=== PATIENT | female | born 1960 | race Caucasian/White ===

== ENCOUNTER → 2016-08-26 | Outpatient (CLI) | payer OTHER ==
[~2016-08-26] MED LIST: /DULO30CA; /ERYT5OPO OD; /ESCI20TA PO; /LAMO10TA PO; /LAMO15TA PO; /LAMO20TA PO; BUPR100T6 PO; CATA0.1T PO; CLON0.5T OR; CYMB60CA3 PO; CYMBALTA60 PO; DULO20CA PO; EFFE150C PO; FLAG500T PO; HYDR10EL PO; HYDR50CA2 PO; IMIT50TA PO; KLON0.5T OR; KLON0.5T PO; LAMICTAL PO; LAMO10TA PO; LAMO200T PO; LATU1TAB PO; LATU80TA PO; LITH300C PO; LITH45TASA PO; MAGO400T PO; MIGRANAL; MIGRANOL; NAPROSY250 PO; NORCOTAB PO; PAXI20TA3 PO; PAXI40TA2 PO; QUET30TA; SERO200T; SERO200T PO; SERO200T2 PO; SERO400T PO; SERO400T3 OR; SERO400T3 PO; SERO50TA3 PO; SEROQUEL PO; SIMIVASTATIN PO; SIMV10TA2 PO; SIMV40TA2 OR; SIMV40TA2 PO; TRAZ100T2 PO; TRAZ100T4 PO; TRAZ50TA4 PO; TYLE325T5 PO; VIST50CA PO; ZOCO20TA; ZOCO40TA PO; ZOCOR20 PO; ZOLO50TA PO
--- NOTE | 2016-08-26 12:28 | REP ---
Clinical: The indeterminate PPD test . Comparison: 08/25/2013 . Technique: PA and lateral. Findings: The mediastinum and cardiac silhouette are normal. The lung hook are clear and without acute consolidation, effusion, or pneumothorax. The skeletal structures are intact and normal. Impression: 1. No acute cardiopulmonary process. Signed by Stephen Harrington MD 08/26/2016 12:19 P
== END ==
LOC: M LAB 11:47
PROVIDERS: ATTEND Physician Assistant
DX: R76.11 Nonspecific reaction to tuberculin skin test without active tuberculosis (principal)

== ENCOUNTER → 2016-09-16 | Outpatient (CLI) | payer OTHER ==
--- NOTE | 2016-09-16 16:43 | REP ---
Lumbar spine series: Five views. History: Pain. Comparison lumbar spine radiographs are from August 24, 2011. Findings: There are two large oval-shaped calcific opacities in the right upper quadrant today each measuring 3 cm in greatest diameter compatible with gallstones. This is a new finding. The bowel gas pattern is unremarkable. Lumbar vertebral body heights are preserved and alignment is normal. There is minimal disc space narrowing at L4-5 and L5-S1. There is no evidence of spondylolysis or spondylolisthesis. There is facet osteoarthritis bilaterally at L5-S1 and L4-5. Sacrum and SI joints are intact. Impression: 1. Degenerative disc and osteoarthritic facet changes at L4-5 and L5-S1. Radiographically these changes are essentially stable from September 04, 2011 prior study. 2. Two large opaque gallstones visible in the right upper quadrant. Signed by Rey Mims MD 09/16/2016 05:09 P
== END ==
LOC: M WUC 10:23
PROVIDERS: ATTEND Physician Assistant Medical
DX: M51.36 Other intervertebral disc degeneration, lumbar region (principal); M51.37 Other intervertebral disc degeneration, lumbosacral region; M47.816 Spondylosis without myelopathy or radiculopathy, lumbar region; M47.817 Spondylosis without myelopathy or radiculopathy, lumbosacral region; K80.80 Other cholelithiasis without obstruction

== ENCOUNTER → 2017-04-13 | Outpatient (REF) | payer OTHER ==
[~2017-04-13] MED LIST changes: +PAXI40TA10 PO; -PAXI40TA2 PO; +PERC5TAB12 PO; +TRAZ-136 PO; -TRAZ100T4 PO; +TRAZ50TA11 PO; -TRAZ50TA4 PO
== END ==
LOC: M SFHCPLAZ 11:09
PROVIDERS: ATTEND Family Medicine
DX: E78.5 Hyperlipidemia, unspecified (principal); E55.9 Vitamin D deficiency, unspecified

== ENCOUNTER → 2017-04-14 | Outpatient (REF) | payer OTHER ==
[2017-04-14 10:59] LABS: ALBUMIN 3.5 GM/DL (3.2-5.2); ALBUMIN/GLOBULIN RATIO 1.09 (1.00-1.93); ALKALINE PHOSPHATASE 73 U/L (45-117); ALT/SGPT 23 U/L (12-78); ANION GAP 8 MEQ/L (8-16); AST/SGOT 20 U/L (15-37); BILIRUBIN,TOTAL 0.4 MG/DL (0.2-1.0); BLOOD UREA NITROGEN 12 MG/DL (7-18); CALCIUM LEVEL 9.2 MG/DL (8.5-10.1); CARBON DIOXIDE LEVEL 27 MEQ/L (21-32); CHLORIDE LEVEL 107 MEQ/L (98-107); CHOLESTEROL LEVEL 260 MG/DL (<200); FREE T4 0.88 NG/DL (0.76-1.46); GLOMERULAR FILTRATION RATE > 60.0 (>51); GLUCOSE, FASTING 117 MG/DL (70-105); SODIUM LEVEL 142 MEQ/L (136-145); TOTAL PROTEIN 6.7 GM/DL (6.4-8.2); TRIGLYCERIDES LEVEL 89 MG/DL (<150)
[2017-04-14 11:01] LABS: POTASSIUM SERUM 5.2 MEQ/L (3.5-5.1)
== END ==
LOC: M SFHCPLAZ 08:14
PROVIDERS: ATTEND Family Medicine
DX: E78.5 Hyperlipidemia, unspecified (principal); E55.9 Vitamin D deficiency, unspecified

== ENCOUNTER → 2017-05-07 | Outpatient (CLI) | payer OTHER ==
--- NOTE | 2017-05-07 08:48 | REP ---
Abdominal right upper quadrant ultrasound: There is a positive Bull's sign to transducer pressure. There are two large mobile gallbladder calculi, one measuring 2.6 cm and the other 2.0 cm. The gallbladder wall is mildly thickened measuring up to 3.4 mm. There is no intrahepatic or extrahepatic biliary duct dilatation, the common duct measures 5.2 mm in diameter. The hepatic parenchyma is mildly echogenic compatible with hepato steatosis but otherwise homogeneous and unremarkable. The visualized portion of the pancreatic head is unremarkable. The body and tail are obscured by bowel gas. There is no right renal calculus, hydronephrosis, mass or cyst, however the lower pole of the kidney is obscured by bowel gas. Impression: Cholelithiasis. Positive Bull's sign to transducer pressure. Mildly thickened gallbladder wall. No pericholecystic fluid. Signed by Max Mcginnis MD 05/07/2017 08:40 A
== END ==
LOC: M RAD 07:07
PROVIDERS: ATTEND Physician Assistant Medical
DX: R10.9 Unspecified abdominal pain (principal)

== ENCOUNTER 2017-06-03 08:00 | Emergency (ER) | payer OTHER ==
[~2017-06-03] VITALS: Ht 162.6 cm; Wt 85.3 kg
[~2017-06-03 08:00] MED LIST changes: -PERC5TAB12 PO
[2017-06-03] MEDS ORDERED: NS 1,000 ML IV SCH (08:40)
[2017-06-03] MEDS ORDERED: ONDANSETRON 4MG/2ML VIAL (J2405) IV ONE (08:45)
[2017-06-03] MEDS ORDERED: MORPHINE 4 MG/ML 1ML SYRINGE IV PRN (08:45)
[2017-06-03 09:10] LABS: BASO % 0.6 % (0.0-1.0); EOS # 0.3 10^3/uL (0.0-0.50); EOS % 4.2 % (0.0-3.0); IMMATURE GRANULOCYTE % 0.5 % (0-0); LYMPH # 1.6 10^3/uL (1.5-4.5); LYMPH % 24.1 % (24.0-44.0); MEAN CORPUSCULAR HEMOGLOBIN 27.9 pg (27.0-33.0); MEAN CORPUSCULAR HGB CONC 32.9 g/dl (32.0-36.5); MEAN CORPUSCULAR VOLUME 84.8 fl (80.0-96.0); MONO # 0.6 10^3/uL (0.0-0.8); MONO % 8.5 % (0.0-5.0); NEUTROPHILS % 62.1 % (36.0-66.0); PLATELET COUNT, AUTOMATED 266 10^3/uL (150-450); RED CELL DISTRIBUTION WIDTH 12.9 % (11.5-14.5); WHITE BLOOD COUNT 6.4 10^3/uL (4.0-10.0)
[2017-06-03 09:43] LABS: ALBUMIN 3.5 GM/DL (3.2-5.2); ALBUMIN/GLOBULIN RATIO 0.95 (1.00-1.93); ALKALINE PHOSPHATASE 76 U/L (45-117); ALT/SGPT 35 U/L (12-78); ANION GAP 6 MEQ/L (8-16); AST/SGOT 30 U/L (15-37); BILIRUBIN,DIRECT < 0.1 MG/DL (0.0-0.2); BILIRUBIN,TOTAL 0.2 MG/DL (0.2-1.0); BLOOD UREA NITROGEN 16 MG/DL (7-18); CALCIUM LEVEL 8.9 MG/DL (8.5-10.1); CARBON DIOXIDE LEVEL 28 MEQ/L (21-32); CHLORIDE LEVEL 105 MEQ/L (98-107); CREATININE FOR GFR 0.65 MG/DL (0.55-1.02); GLOMERULAR FILTRATION RATE > 60.0 (>51); GLUCOSE, FASTING 99 MG/DL (70-105); POTASSIUM SERUM 4.6 MEQ/L (3.5-5.1); SODIUM LEVEL 139 MEQ/L (136-145); TOTAL PROTEIN 7.2 GM/DL (6.4-8.2)
[2017-06-03] MEDS ORDERED: PERC5TAB12 PO (11:00)
--- NOTE | 2017-06-03 11:13 | REP ---
RIGHT UPPER QUADRANT ULTRASOUND: Real-time sonographic evaluation of the right upper quadrant performed. There are two large gallstones in the gallbladder measuring 2.1 cm and 2.2 cm in diameter. Patient was tender in this region. There is no gallbladder wall thickening or pericholecystic fluid. There is no intrahepatic or extrahepatic biliary dilatation, common bile duct measuring 6 mm in diameter. Liver demonstrates heterogeneous echotexture suggesting some degree of fibrofatty infiltration. No gross liver or pancreatic mass is seen, pancreatic tail is not well seen due to overlying bowel gas. Right kidney demonstrates no hydronephrosis or nephrolithiasis with normal size at 10.7 cm in length. IMPRESSION: Two large gallstones in the gallbladder without gallbladder wall thickening, pericholecystic fluid or biliary dilatation. Signed by Max Alberts MD 06/03/2017 05:34 P
[2017-06-03 11:15] VITALS: BP 136/78
--- NOTE | 2017-06-04 05:55 | ECGEPIP ---
Stationary ECG Study [facility] - ED Test Date: 2017-06-03 Pat Name: SALOMON WINKLER Department: Room: - Gender: F Beet Topper: deandre : 1960 Requested By: Rosalba Malhotra Order Number: [id number] Reading MD: Leroy Forrester Measurements Intervals [place] Rate: 61 P: 40 NM: 162 QRS: 21 QRSD: 101 T: 9 QT: 464 QTc: 469 Interpretive Statements SINUS RHYTHM WITH SINUS ARRHYTHMIA NSTTW ABNORMALITIES PROBABLE LATERAL MYOCARDIAL INFARCTION, PROBABLY OLD Electronically Signed On 06-04-2017 5:55:14 EDT by Leroy Forrester
== END 2017-06-03 11:16 | disposition home or self-care (01) ==
LOC: M ED 08:00
DX: K80.50 Calculus of bile duct without cholangitis or cholecystitis without obstruction (principal)
CPT/HCPCS: 76705; 80048; 80076; 83690; 85025; 93005; 96374; 96375; 99284; J2405

== ENCOUNTER 2017-06-25 10:24 | Day surgery (SDC) | payer OTHER ==
[~2017-06-25] VITALS: Ht 162.6 cm; Wt 83.8 kg
[~2017-06-25 10:24] MED LIST changes: +PERC5TAB12 PO
[2017-06-25] MEDS ORDERED: LR 1,000 ML IV ONE (10:30)
[2017-06-25] MEDS ORDERED: fentaNYL 100 MCG/2 ML INJECTION (J3010) As Ordered ONE (11:10)
[2017-06-25] MEDS ORDERED: MIDAZOLAM INJ 2 MG/2 ML VIAL (J2250) As Ordered ONE (11:10)
[2017-06-25] MEDS ORDERED: BUPIVACAINE/EPIN 0.25% 30 ML VIAL As Ordered ONE (11:55)
[2017-06-25] MEDS ORDERED: LABETALOL HCL 100 MG/20 ML VIAL As Ordered ONE (12:22)
[2017-06-25] MEDS ORDERED: LIDOCAINE 2% INJ 100 MG/5 ML SDV (FOR ANES.) As Ordered ONE (12:22)
[2017-06-25] MEDS ORDERED: dexameTHASONE 4 MG/ML 1ML VIAL (J1100) As Ordered ONE (12:22)
[2017-06-25] MEDS ORDERED: KETOROLAC 60 MG/2 ML VIAL (J1885) As Ordered ONE (12:22)
[2017-06-25] MEDS ORDERED: ROCURONIUM BROMIDE 50 MG/5 ML VIAL/SYRINGE As Ordered ONE (12:22)
[2017-06-25] MEDS ORDERED: ONDANSETRON 4MG/2ML VIAL (J2405) As Ordered ONE (12:22)
[2017-06-25] MEDS ORDERED: PROPOFOL 200 MG/20 ML VIAL As Ordered ONE (12:22)
[2017-06-25] MEDS ORDERED: ePHEDrine SULFATE 25 MG/5 ML(5MG/ML) SYRINGE As Ordered ONE (12:28)
[2017-06-25] MEDS ORDERED: hydrALAZINE INJ 20 MG/ML VIAL As Ordered ONE (12:34)
[2017-06-25] MEDS ORDERED: HYDROmorphone HCL 2 MG/ML 1ML VIAL (J1170) As Ordered ONE (12:56)
[2017-06-25] MEDS ORDERED: GLYCOPYRROLATE INJ 0.2 MG/ML 2 ML VIAL As Ordered ONE (13:07)
[2017-06-25] MEDS ORDERED: NEOSTIGMINE 10 MG/10 ML VIAL (J2710) As Ordered ONE (13:07)
[2017-06-25] MEDS ORDERED: PERCOCET 5MG/325MG TAB PO PRN (13:45)
[2017-06-25] MEDS ORDERED: ONDANSETRON 4MG/2ML VIAL (J2405) IV PRN (13:45)
[2017-06-25] MEDS ORDERED: LR 1,000 ML IV SCH (13:45)
[2017-06-25] MEDS ORDERED: LABETALOL HCL 100 MG/20 ML VIAL IV SCH (13:45)
[2017-06-25] MEDS ORDERED: NORCO, ANEXSIA 5/325MG TABLET (HYDROcodone/ACETAMINOPHEN) PO PRN (13:45)
[2017-06-25] MEDS ORDERED: fentaNYL 100 MCG/2 ML INJECTION (J3010) IV PRN (13:45)
[2017-06-25] MEDS ORDERED: METOCLOPRAMIDE INJ 10MG/2ML VIAL (J2765) IV PRN (13:45)
[2017-06-25 15:30] VITALS: BP 179/87
--- NOTE | 2017-06-27 08:20 | RO ---
DATE OF PROCEDURE: 06/25/2017 PREOPERATIVE DIAGNOSIS: Symptomatic cholelithiasis. POSTOPERATIVE DIAGNOSIS: Symptomatic cholelithiasis. PROCEDURE: Laparoscopic cholecystectomy. SURGEON: Max Garcia DO W[employer] OPERATIONS MANAGER: None. ANESTHESIA: General. ESTIMATED BLOOD LOSS: 5 mL. COMPLICATIONS: None. INDICATIONS FOR PROCEDURE: Patient is a 57-year-old female who presents with persistent right upper quadrant abdominal pain occurring mainly after meals. She was found to have symptomatic cholelithiasis. Recommendation was to proceed with laparoscopic possible open cholecystectomy. Risks and benefits of the procedure not limited to, but including, bleeding, infection, hernia formation, damage to surrounding structures, need for further surgery were discussed in detail with the patient. Informed consent was obtained and the procedure was planned. PROCEDURE: Patient was brought back to operating room 6. After sufficient sedation, the abdomen was sterilely prepped and draped. Next, a time out was done to confirm proper patient and proper procedure. Following that, a stab incision was made in the left lower quadrant and a Veress needle was inserted. The abdomen was insufflated to 15 mmHg. Next, a 5 mm supraumbilical incision was made. A 5 mm OptiView port was used to gain access to the abdomen. Once abdomen was entered, a 10 mm port was placed subxiphoid and two 5 mm ports right upper quadrant. The fundus of the gallbladder was grasped, elevated up towards the right shoulder. The cystic duct and cystic artery were carefully dissected using a combination of blunt and sharp dissection. Once they were both clearly identified, they were both doubly clipped and cut. The gallbladder was then removed from gallbladder fossa using electrocautery. The gallbladder was brought out through the subxiphoid port site in a 10 mm EndoCatch bag. The abdomen was then examined one more time to confirm hemostasis. After doing so, the abdomen was desufflated. Skin incisions were closed #4-0 Vicryl subcuticular sutures. The abdomen was cleaned and dried. Steri-Strips, 4x4 and tape were applied thus ending procedure.
== END 2017-06-25 15:30 | disposition home or self-care (01) ==
LOC: M SDC 10:24
PROVIDERS: ATTEND Surgery
DX: K80.10 Calculus of gallbladder with chronic cholecystitis without obstruction (principal); F32.9 Major depressive disorder, single episode, unspecified; Z90.710 Acquired absence of both cervix and uterus; Z86.011 Personal history of benign neoplasm of the brain
CPT/HCPCS: 47562; 88304; J0690; J1100; J1170; J1885; J2250; J2405; J2710; J3010

== ENCOUNTER → 2017-06-30 | Outpatient (CLI) | payer OTHER ==
--- NOTE | 2017-06-30 16:24 | REP ---
Clinical: Trauma. Technique: AP and lateral views of the left humerus. Findings: No acute fracture dislocation. Skeletal structures, joint spaces and surrounding soft tissues appear normal for age. Impression: No acute fracture dislocation. Signed by Stephen Harrington MD 06/30/2017 04:15 P
--- NOTE | 2017-06-30 16:25 | REP ---
Clinical: Trauma. Technique: AP, lateral, bilateral oblique and sunrise views of the left knee. Findings: Mild tricompartmental degenerative changes include subchondral sclerosis and joint space narrowing. No acute fracture dislocation. No obvious effusion. Impression: Mild tricompartmental osteoarthritic degenerative changes. No acute fracture or dislocation. Signed by Stephen Harrington MD 06/30/2017 04:17 P
--- NOTE | 2017-06-30 16:25 | REP ---
Clinical: Trauma. Technique: AP and lateral views of the left forearm. Findings: No acute fracture or dislocation. Skeletal structures, joint spaces, and surrounding soft tissues are normal. No subcutaneous emphysema or radiodense foreign body. Impression: No acute fracture or dislocation. Signed by Stephen Harrington MD 06/30/2017 04:16 P
== END ==
LOC: M WUC 15:44
PROVIDERS: ATTEND Physician Assistant Medical
DX: M79.622 Pain in left upper arm (principal); M17.12 Unilateral primary osteoarthritis, left knee

== ENCOUNTER → 2017-08-03 | Outpatient (CLI) | payer OTHER ==
--- NOTE | 2017-08-04 15:59 | REP ---
MRI lumbar spine without contrast: History: Low back pain radiating to the upper back. Comparison radiographs are from September 16, 2016. Technique: Sagittal and axial T1 and T2-weighted scans are acquired in the usual fashion with and without fat saturation. Sequences include spin echo, turbo spin-echo, and STIR imaging sequences. MRI findings: Lumbar vertebral body heights are preserved. Alignment is normal. Cortical and medullary bone signal intensity are normal. There is mild degenerative narrowing of the L4-5 and L5-S1 discs. Conus medullaris is normal in appearance and position at T12-L1. There is minimal central bulging of the posterior margin of the T11-12 disc without cord compression. Axial and sagittal images at L1-L2 show no significant abnormality. At L2-L3, there is no evidence of disc herniation or neural foraminal narrowing. Minimal diffuse disc bulging is seen. At L3-4, there is minimal facet hypertrophy and ligamentum flavum hypertrophy. No central canal stenosis is seen. No neural foraminal encroachment is appreciated. At L4-L5, there is mild diffuse disc bulging. Developmentally short pedicles as well as moderate to marked facet and ligamentum flavum hypertrophy contribute to mild to moderate central canal stenosis at L4-5. The mid AP dimension of the thecal sac is 7 mm here. No neural foraminal encroachment is appreciated. At the L5-S1, there is diffuse disc bulging. Advanced facet hypertrophy is seen. There is mild to moderate right-sided neural foraminal narrowing from facet hypertrophy and disc bulging at L5-S1. Mild central canal stenosis is seen and L5-S1 as well. Impression: Degenerative disc and facet changes at L4-5 and L5-S1 where there is mild to moderate L4-5 central canal stenosis and mild L5-S1 central canal stenosis. Moderate right-sided neural foraminal narrowing is seen at L5-S1. Signed by Rey Mims MD 08/04/2017 04:59 P
== END ==
LOC: M RAD 13:28
PROVIDERS: ATTEND Physician Assistant Medical
DX: M51.36 Other intervertebral disc degeneration, lumbar region (principal); M51.37 Other intervertebral disc degeneration, lumbosacral region

== ENCOUNTER 2018-08-02 11:54 | Inpatient (IN) | payer OTHER ==
[2018-08-02] MEDS: ALPRAZolam 0.5 MG TAB PO (12:45)
[2018-08-02 13:19] LABS: HEMATOCRIT 43.9 % (36.0-47.0); HEMOGLOBIN 15.7 g/dl (12.0-15.5); MEAN CORPUSCULAR HEMOGLOBIN 30.2 pg (27.0-33.0); MEAN CORPUSCULAR HGB CONC 35.8 g/dl (32.0-36.5); MEAN CORPUSCULAR VOLUME 84.4 fl (80.0-96.0); PLATELET COUNT, AUTOMATED 254 10^3/uL (150-450); RED CELL DISTRIBUTION WIDTH 12.3 % (11.5-14.5); WHITE BLOOD COUNT 8.1 10^3/uL (4.0-10.0)
[2018-08-02 13:46] LABS: AMPHETAMINES LEVEL URINE NEGATIVE (NEGATIVE); BARBITURATES URINE NEGATIVE (NEGATIVE); BENZODIAZEPINES URINE NEGATIVE (NEGATIVE); CANNABINOIDS URINE NEGATIVE (NEGATIVE); COCAINE METABOLITE URINE NEGATIVE (NEGATIVE); METHADONE URINE NEGATIVE (NEGATIVE); OPIATES URINE NEGATIVE (NEGATIVE); PHENCYCLIDINE URINE NEGATIVE (NEGATIVE)
[2018-08-02 13:58] LABS: ACETAMINOPHEN LEVEL < 2.0 UG/ML (10.0-30.0); ALBUMIN/GLOBULIN RATIO 1.38 (1.00-1.93); ALKALINE PHOSPHATASE 63 U/L (45-117); ALT/SGPT 14 U/L (12-78); ANION GAP 11 MEQ/L (8-16); AST/SGOT 16 U/L (7-37); BILIRUBIN,DIRECT 0.1 MG/DL (0.0-0.2); BILIRUBIN,TOTAL 0.4 MG/DL (0.2-1.0); BLOOD UREA NITROGEN 12 MG/DL (7-18); CALCIUM LEVEL 9.3 MG/DL (8.5-10.1); CARBON DIOXIDE LEVEL 24 MEQ/L (21-32); CHLORIDE LEVEL 105 MEQ/L (98-107); ETHYL ALCOHOL (ETHANOL) 0.003 % (0.000-0.010); GLOMERULAR FILTRATION RATE > 60.0 (>51); GLUCOSE, FASTING 87 MG/DL (70-100); POTASSIUM SERUM 4.2 MEQ/L (3.5-5.1); SALICYLATE LEVEL < 1.7 MG/DL (5.0-30.0); SODIUM LEVEL 140 MEQ/L (136-145); TOTAL PROTEIN 6.9 GM/DL (6.4-8.2)
[2018-08-02] MEDS ORDERED: MAALOX 30 ML SUSP *UDC PO (15:30)
[2018-08-02] MEDS ORDERED: ACETAMINOPHEN TAB 650MG DOSE (2X325MG) PO (15:30)
[2018-08-02] MEDS ORDERED: MOM 30ML SUSPENSION UDC PO (15:30)
[2018-08-02] MEDS ORDERED: traZODone 50 MG TAB PO (15:30)
[2018-08-03] MEDS: OXcarbazepine 150 MG TAB PO (08:48)
[2018-08-03] MEDS: LURASIDONE HCL 40 MG TAB (LATUDA) PO (08:48)
[2018-08-03] MEDS: LORazepam 1 MG TAB PO (11:37)
[2018-08-03] MEDS: lamoTRIgine 25 MG TAB PO (12:14)
[2018-08-03] MEDS: ERYTHROMYCIN OPHTH OINT OD ×2 (15:29→21:03)
[2018-08-04] MEDS: hydrOXYzine 50 MG TAB PO (08:41)
[2018-08-04] MEDS: lamoTRIgine 25 MG TAB PO (08:41)
[2018-08-04] MEDS: LURASIDONE HCL 40 MG TAB (LATUDA) PO (08:41)
[2018-08-04] MEDS: OXcarbazepine 150 MG TAB PO (08:41)
[2018-08-04] MEDS: ERYTHROMYCIN OPHTH OINT OD (08:41)
[2018-08-04] MEDS: busPIRone 5 MG TAB PO ×3 (09:46→20:34)
[2018-08-04] MEDS: DOXYCYCLINE HYCLATE 100 MG TAB PO ×2 (16:28→20:34)
[2018-08-04] MEDS: ERYTHROMYCIN OPHTH OINT OU ×2 (16:28→20:34)
[2018-08-05] MEDS: OXcarbazepine 150 MG TAB PO (08:17)
[2018-08-05] MEDS: LURASIDONE HCL 40 MG TAB (LATUDA) PO (08:17)
[2018-08-05] MEDS: busPIRone 5 MG TAB PO ×3 (08:17→20:53)
[2018-08-05] MEDS: lamoTRIgine 25 MG TAB PO (08:17)
[2018-08-05] MEDS: ERYTHROMYCIN OPHTH OINT OU ×3 (08:18→20:53)
[2018-08-05] MEDS: DOXYCYCLINE HYCLATE 100 MG TAB PO ×2 (10:08→20:53)
[2018-08-06] MEDS: OXcarbazepine 150 MG TAB PO (08:16)
[2018-08-06] MEDS: busPIRone 5 MG TAB PO ×3 (08:16→20:09)
[2018-08-06] MEDS: LURASIDONE HCL 40 MG TAB (LATUDA) PO (08:16)
[2018-08-06] MEDS: lamoTRIgine 25 MG TAB PO (08:16)
[2018-08-06] MEDS: ERYTHROMYCIN OPHTH OINT OU ×3 (08:17→20:09)
[2018-08-06] MEDS: DOXYCYCLINE HYCLATE 100 MG TAB PO ×2 (08:17→20:09)
[2018-08-07] MEDS: lamoTRIgine 25 MG TAB PO (08:17)
[2018-08-07] MEDS: OXcarbazepine 150 MG TAB PO (08:17)
[2018-08-07] MEDS: ERYTHROMYCIN OPHTH OINT OU ×3 (08:18→20:18)
[2018-08-07] MEDS: DOXYCYCLINE HYCLATE 100 MG TAB PO ×2 (08:18→20:18)
[2018-08-07] MEDS: busPIRone 5 MG TAB PO ×3 (08:18→20:18)
[2018-08-07] MEDS: LURASIDONE HCL 40 MG TAB (LATUDA) PO (08:18)
[2018-08-07] MEDS: LORazepam 1 MG TAB PO ×2 (13:07→20:18)
[2018-08-08 00:15] LABS: OXCARBAZEPINE 14 ug/mL (10-35)
[2018-08-08] MEDS: DOXYCYCLINE HYCLATE 100 MG TAB PO (08:42)
[2018-08-08] MEDS: LURASIDONE HCL 40 MG TAB (LATUDA) PO (08:42)
[2018-08-08] MEDS: lamoTRIgine 25 MG TAB PO (08:43)
[2018-08-08] MEDS: busPIRone 5 MG TAB PO (08:43)
[2018-08-08] MEDS: OXcarbazepine 150 MG TAB PO (08:43)
[2018-08-08] MEDS: ERYTHROMYCIN OPHTH OINT OU (08:43)
[2018-08-08] MEDS: hydrOXYzine 50 MG TAB PO (08:43)
== END 2018-08-08 12:00 | disposition home or self-care (01) | DRG 885 ==
LOC: M PSY 08-06 07:15 → M ED 11:54 → M ED INP 15:25 → M PSY 16:25
PROVIDERS: Psychiatry & Neurology Psychiatry
DX: F31.9 Bipolar disorder, unspecified (principal); F41.9 Anxiety disorder, unspecified; E55.9 Vitamin D deficiency, unspecified; G43.909 Migraine, unspecified, not intractable, without status migrainosus; E78.5 Hyperlipidemia, unspecified; M51.36 Other intervertebral disc degeneration, lumbar region; Z79.899 Other long term (current) drug therapy; H10.31 Unspecified acute conjunctivitis, right eye

== ENCOUNTER 2018-10-27 17:23 | Inpatient (IN) | payer OTHER ==
[~2018-10-27] VITALS: Ht 162.6 cm; Wt 64.2 kg
[~2018-10-27 17:23] MED LIST changes: +BUSP10TA PO; -EFFE150C PO; +EFFE150C2 PO; +HYDR1CAP25 PO; +HYDRO50TAB PO; +LAMI25TA PO; -LAMO200T PO; +LAMO200T2 PO; +LATU40TA PO; +OXCA300T14 PO; -TRAZ-136 PO; +TRAZ-160 PO; +TRAZ-163 PO; -TRAZ50TA11 PO; +TRAZO50TA PO; +TRIL150T PO
[2018-10-27] MEDS ORDERED: LORazepam 2 MG TAB PO STA (17:50)
[2018-10-27 18:33] LABS: HEMATOCRIT 46.6 % (36.0-47.0); HEMOGLOBIN 16.2 g/dl (12.0-15.5); MEAN CORPUSCULAR HEMOGLOBIN 29.9 pg (27.0-33.0); MEAN CORPUSCULAR HGB CONC 34.8 g/dl (32.0-36.5); PLATELET COUNT, AUTOMATED 326 10^3/uL (150-450); RED BLOOD COUNT 5.42 10^6/uL (4.00-5.40); WHITE BLOOD COUNT 10.5 10^3/uL (4.0-10.0)
[2018-10-27 18:42] LABS: AMPHETAMINES LEVEL URINE NEGATIVE (NEGATIVE); BARBITURATES URINE NEGATIVE (NEGATIVE); BENZODIAZEPINES URINE NEGATIVE (NEGATIVE); CANNABINOIDS URINE NEGATIVE (NEGATIVE); COCAINE METABOLITE URINE NEGATIVE (NEGATIVE); METHADONE URINE NEGATIVE (NEGATIVE); OPIATES URINE NEGATIVE (NEGATIVE); PHENCYCLIDINE URINE NEGATIVE (NEGATIVE)
[2018-10-27 18:59] LABS: ACETAMINOPHEN LEVEL < 2.0 UG/ML (10.0-30.0); ALBUMIN 3.9 GM/DL (3.2-5.2); ALT/SGPT 33 U/L (12-78); BILIRUBIN,DIRECT 0.1 MG/DL (0.0-0.2); BILIRUBIN,TOTAL 0.6 MG/DL (0.2-1.0); BLOOD UREA NITROGEN 15 MG/DL (7-18); CALCIUM LEVEL 8.6 MG/DL (8.5-10.1); CARBON DIOXIDE LEVEL 23 MEQ/L (21-32); CHLORIDE LEVEL 111 MEQ/L (98-107); CREATININE FOR GFR 0.72 MG/DL (0.55-1.30); ETHYL ALCOHOL (ETHANOL) < 0.003 % (0.000-0.010); GLOMERULAR FILTRATION RATE > 60.0 (>51); GLUCOSE, FASTING 151 MG/DL (70-100); POTASSIUM SERUM 3.5 MEQ/L (3.5-5.1); SALICYLATE LEVEL < 1.7 MG/DL (5.0-30.0); SODIUM LEVEL 144 MEQ/L (136-145)
[2018-10-27] MEDS ORDERED: traZODone 50 MG TAB PO PRN (20:30)
[2018-10-27] MEDS ORDERED: MAALOX 30 ML SUSP *UDC PO PRN (20:30)
[2018-10-27] MEDS ORDERED: MOM 30ML SUSPENSION UDC PO PRN (20:30)
[2018-10-27] MEDS: busPIRone 10 MG TAB PO SCH (21:00)
[2018-10-27 21:30] VITALS: BP 124/90
[2018-10-28 06:17] VITALS: BP 113/68
[2018-10-28] MEDS ORDERED: LURASIDONE HCL 40 MG TAB (LATUDA) PO SCH ×2 (08:00)
--- NOTE | 2018-10-28 09:04 | HPEPDOC ---
[facility] Medical History & Physical Date of Admission Oct 27, 2018 History and Physical PCP: Dr Quinn ATTENDING: Dr. Stuart Tello HPI: 58 yo F admitted to [facility] for bipolar disorder, being medically examined today. No acute medical complaints today. She states she has not been taking her medications for a while because she states they were not working. She states because of this she has not been taking care of herself. Denies any fevers, chills, weakness, fatigue, PETTIT, CP, SOB, cough, palpitations, abdominal pain, N/V/D or changes in bowel or bladder habits. PMHx: BIPOLAR DISORDER MDD Anxiety HISTORY OF SI/SA, overdose 2014 MIGRAINE HEADACHE LUMBAR DJD-OCTOBER 2010 MRI WITH L4-S1 BULGES, L4-S1 MINIMAL DSN, FACET ARTHRITIS BY 09/2016 XRAY OVARIAN CYSTS HYPERLIPIDEMIA OSTEOPENIA VITAMIN D DEFICIENCY HISTORY OF RECURRENT UTI NEPHROLITHIASIS SURGICAL HISTORY BUNNY/BSO CRANIOTOMY WITH EXCISION OF COLLOID CYST DECEMBER 1994 WITH REPEAT NOVEMBER 2009-[facility]. History of seizure however the patient states it has been at least 15 years since her last seizure. APPENDECTOMY TONSILLECTOMY ADENOIDECTOMY Cholecystectomy SOCHX: Resides in: [facility] Marital Status: Kids: 3 Employment: unemployed Tobacco use: Denies ETOH: denies Illicit Drugs: Denies IV Drug Use: Denies Tattoos done unprofessionally: Denies FAMHX: Mother: Alive, hypertension Father: , heart disease Siblings: 2 brothers, one sister Alive, well. One brother , suicide Children: Alive, well ROS: As noted in HPI, otherwise 11pt ROS of systems reviewed and unremarkable. PE: GEN: 58 yo F, appears stated age. Appears unkept. No acute distress. Alert and oriented x 3. Patient with flat affect, avoids eye contact, slow to answer questions. HEENT: Normocephalic, atraumatic. Pupils are equal, round, and reactive to l ight. Extraocular movements are intact. No nystagmus appreciated. Sclera are nonicteric. Conjunctiva without injection. Nose midline. Nasal turbinates without bogginess. EACs both patent BL. TMs both visualized and gomez with good cone of light, no bulging or erythema. No facial asymmetry. Moist mucous membranes. Dentition fair. Pharynx pink and moist, no cobblestoning. Neck supple, trachea midline. No lymphadenopathy or thyromegaly appreciated. CHEST: Regular rate and rhythm, +S1, +S2 LUNGS: Clear to auscultation bilaterally. No wheezes, rales, or rhonchi. Breathing appears symmetric and easy. Patient is speaking in full sentences. No accessory muscle use. ABD: Round, soft, non-tender, non-distended. +Bowel sounds throughout. No rebound or guarding. No costovertebral angle tenderness. EXT: Pulses 2+ bilaterally dorsalis pedis and radial. No lower extremity edema appreciated. SKIN: [place], dry, warm. Capillary refill <2sec. No rashes. NEURO: Alert and oriented x 3. Cranial nerves III-XII are intact. No focal deficits appreciated. EKG: SINUS BRADYCARDIA SINCE 06/03/17 THERE HAS BEEN MINIMAL CHANGE QT INTERVAL IS SHORTER TODAY Electronically Signed On 08-04-2018 20:53:35 EST by Brenda Duff A&P: 58 yo F admitted to [facility] for unspecified depressive disorder 1. Psych. Plan per Psychiatry. EKG on file. 2. Craniotomy with excision of colloid cyst with repeat 11/23. History of seizure. Patient remains on Trileptal 450 mg by mouth daily. Patient denies any seizure activity in at least 15 years. 3.Follow up with PCP on discharge. 4. Mild leukocytosis. Pt is afebrile. Asymptomatic. Possible stress response. Recheck CBC in AM. 5. Staff member Ally present throughout exam. Vital Signs Vital Signs Date Time Temp Pulse Resp B/P (MAP) Pulse Ox O2 Delivery O2 Flow Rate FiO2 10/28/18 06:17 98.5 79 12 113/68 (83) 10/27/18 21:06 97 Room Air Laboratory Data Labs 24H Laboratory Tests 2 10/27/18 18:10: Nucleated Red Blood Cells % (auto) 0.0, Anion Gap 10, Glomerular Filtration Rate > 60.0, Calcium Level 8.6, Aspartate Amino Transf (AST/SGOT) 42H, Alanine Aminotransferase (ALT/SGPT) 33, Alkaline Phosphatase 74, Total Bilirubin 0.6, Direct Bilirubin 0.1, Total Protein 7.0, Albumin 3.9, Albumin/Globulin Ratio 1.26, Thyroid Stimulating Hormone (TSH) 1.690, Salicylates Level < 1.7L, Urine Amphetamines Screen NEGATIVE, Urine Benzodiazepines Screen NEGATIVE, Urine Opiates Screen NEGATIVE, Urine Methadone Screen NEGATIVE, Acetaminophen Level < 2.0L, Urine Barbiturates Screen NEGATIVE, Urine Phencyclidine Screen NEGATIVE, Urine Cocaine Metabolite Screen NEGATIVE, Urine Cannabinoids Screen NEGATIVE, Ethyl Alcohol Level < 0.003 CBC/BMP Laboratory Tests 10/27/18 18:10 Red Blood Count 5.42 H, Mean Corpuscular Volume 86.0, Mean Corpuscular Hemoglobin 29.9, Mean Corpuscular Hemoglobin Concent 34.8, Red Cell Distribution Width 12.6 Home Medications Scheduled Buspirone HCl (Buspirone HCl) 10 Mg Tab, 10 MG PO TID for anxiety Lamotrigine (Lamictal) 25 Mg Tab, 25 MG PO QAM for mood Lurasidone Hydrochloride (Latuda) 40 Mg Tab, 40 MG PO DAILY TAKES WITH 80MG FOR 120MG TOTAL DOSE Lurasidone Hydrochloride (Latuda) 80 Mg Tab, 80 TAB PO DAILY TAKES WITH 40MG FOR 120MG TOTAL DOSE Oxcarbazepine (Trileptal) 150 Mg Tab, 150 MG PO DAILY TAKES WITH 300MG FOR 450MG TOTAL DOSE Oxcarbazepine (Oxcarbazepine) 300 Mg Tab, 300 MG PO DAILY TAKES WITH 150MG FOR 450MG TOTAL DOSE Scheduled PRN Hydroxyzine HCl (Hydroxyzine HCl) 50 Mg Tab, 50 MG PO Q4HP PRN for ANXIETY/AGITATION Trazodone HCl (Trazodone HCl) 50 Mg Tab, 50 MG PO QHSP PRN for INSOMNIA Allergies Coded Allergies: No Known Drug Allergy (Verified Allergy, Unknown, 10/27/18) Adriana Cadena Oct 28, 2018 09:04
[2018-10-28] MEDS: busPIRone 10 MG TAB PO SCH ×3 (12:06→21:02)
[2018-10-28] MEDS: LURASIDONE HCL 40 MG TAB (LATUDA) PO SCH (12:06)
[2018-10-28] MEDS: OXcarbazepine 150 MG TAB PO SCH (12:06)
[2018-10-28] MEDS: lamoTRIgine 25 MG TAB PO SCH (12:06)
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
[2018-10-28 18:00] VITALS: BP_SYST 110; BP_SYST 90; BP_DIAS 58; BP_DIAS 60
[2018-10-28] MEDS: QUEtiapine FUMARATE 25 MG TAB PO SCH (21:02)
[2018-10-29 06:00] VITALS: BP 109/57
[2018-10-29] MEDS: LURASIDONE HCL 40 MG TAB (LATUDA) PO SCH (08:46)
[2018-10-29] MEDS: lamoTRIgine 25 MG TAB PO SCH (08:46)
[2018-10-29] MEDS: busPIRone 10 MG TAB PO SCH ×3 (08:46→20:10)
[2018-10-29] MEDS: OXcarbazepine 150 MG TAB PO SCH (08:47)
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
--- NOTE | 2018-10-29 13:37 | ECGEPIP ---
Stationary ECG Study [facility] Test Date: 2018-10-28 Pat Name: SALOMON WINKLER Department: Room: [place] [address] Gender: F Tipple Tender: KATALINA : 1960 Requested By: EVELYNE SCHILLING PGY-1 Order Number: [id number] Reading MD: Parker Huizar Measurements Intervals [place] Rate: 71 P: 59 KS: 160 QRS: 17 QRSD: 99 T: 4 QT: 423 QTc: 462 Interpretive Statements Normal sinus rhythm Nonspecific ST-T wave abnormalities Compared to prior tracing of 08/04/2018, there are minor repolarization changes Electronically Signed On 10-29-2018 13:36:47 EDT by Parker Huizar
[2018-10-29 18:28] VITALS: BP 99/68
[2018-10-29] MEDS: ACETAMINOPHEN TAB 650MG DOSE (2X325MG) PO PRN (19:08)
[2018-10-29] MEDS: QUEtiapine FUMARATE 25 MG TAB PO SCH (20:10)
[2018-10-30 06:47] VITALS: BP 148/79
[2018-10-30] MEDS: lamoTRIgine 25 MG TAB PO SCH (08:07)
[2018-10-30] MEDS: OXcarbazepine 150 MG TAB PO SCH (08:07)
[2018-10-30] MEDS: LURASIDONE HCL 40 MG TAB (LATUDA) PO SCH (08:07)
[2018-10-30] MEDS: busPIRone 10 MG TAB PO SCH ×3 (08:07→20:49)
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
[2018-10-30 09:02] VITALS: BP 130/90
[2018-10-30] MEDS: hydrOXYzine 50 MG TAB PO PRN (09:05)
[2018-10-30 10:54] LABS: ALT/SGPT 22 U/L (12-78); BILIRUBIN,TOTAL 0.3 MG/DL (0.2-1.0); BLOOD UREA NITROGEN 11 MG/DL (7-18); CARBON DIOXIDE LEVEL 30 MEQ/L (21-32); CHLORIDE LEVEL 112 MEQ/L (98-107); CPK CREATINE PHOSPHOKINASE 23 U/L (26-192); GLOMERULAR FILTRATION RATE > 60.0 (>51); GLUCOSE, FASTING 85 MG/DL (70-100); MB/CK RELATIVE INDEX 8.26 (< OR =4); POTASSIUM SERUM 3.5 MEQ/L (3.5-5.1); SODIUM LEVEL 147 MEQ/L (136-145); TOTAL PROTEIN 5.3 GM/DL (6.4-8.2); TROPONIN I < 0.02 NG/ML (< 0.10)
--- NOTE | 2018-10-30 14:36 | ECGEPIP ---
Stationary ECG Study [facility] Test Date: 2018-10-30 Pat Name: SALOMON WINKLER Department: Room: [place] [address] Gender: F Process Coordinator: CHARISMA : 1960 Requested By: BIANCA Matias Order Number: [id number] Reading MD: Parker Huizar Measurements Intervals [place] Rate: 73 P: 14 CO: 146 QRS: 12 QRSD: 106 T: -36 QT: 412 QTc: 455 Interpretive Statements Normal sinus rhythm. Nonspecific repolarization abnormality No significant change since prior tracing of 10/28/2018 Electronically Signed On 10-30-2018 14:36:43 EDT by Parker Huizar
[2018-10-30 17:58] VITALS: BP 140/80
[2018-10-30] MEDS: QUEtiapine FUMARATE 25 MG TAB PO SCH (20:49)
[2018-10-31 06:00] VITALS: BP 140/74
[2018-10-31] MEDS: OXcarbazepine 150 MG TAB PO SCH (08:15)
[2018-10-31] MEDS: lamoTRIgine 25 MG TAB PO SCH (08:16)
[2018-10-31] MEDS: busPIRone 10 MG TAB PO SCH ×3 (08:16→20:57)
[2018-10-31] MEDS: LURASIDONE HCL 40 MG TAB (LATUDA) PO SCH (08:16)
--- NOTE | 2018-10-31 13:09 | MHIPNPDOC ---
[facility] Progress Note Progress Note DATE OF SERVICE: 10/31/18 HISTORY: See HPI. Interval History: Plan to obtain information from family/other providers regarding AED prescriptions and relationship to family. She endorses symptoms of depression, anhedonia, denies decreased appetite (seen eating in her room), decreased energy, anxiety, "occasional suicidal thoughts", but states she would not act on them. Denies HI/bambi/AVH/PTSD symptoms. Per social work house is disarray, reaching out to family. She attended morning group and found it to be "not very useful as it was only a movie", as she would have preferred a more interactive/engaging group. VITAL SIGNS: See below. NEW TEST RESULTS: EKG 10/30/18, normal EKG CURRENT MEDICATIONS: See below. MENTAL STATUS EXAMINATION: Patient is a 58-year old female, who is in casual clothing, with glasses, plea deborah, cooperative. Speech: Is decreased rate, rhythm, volume. Language skills are intact Thought processes including: circumstantial Thought content: anhedonic Abstract reasoning, and computation: intact Description of associations: intact Description of abnormal or psychotic thoughts: denies Judgment: improving Insight: poor Orientation: x3 Recent and remote memory: Intact Attention span and concentration: decreased Language: bruneian Fund of knowledge: normal Mood: "depressed" Affect: dysthymic, blunted, mood-congruent, does not smile Assessment: Pt with a history of bipolar disorder currently experiencing, decreased sleep, increased anxiety and depression secondary to isolation since divorce 2-3 years ago. Agreeable to re-starting AED mediactions, lamictal 25 mg, buspar 10 mg TID, prn hydroxyzine 50 mg Q4 PRN, and seroquel 25 mg for bipolar depressive symptoms. Continues to deny active SI/HI, hallucinations, delusions. Does have passive SI and depressed mood. Makes efforst to attend groups, appetite intact. Continues to feels safe here. Plan to d/c AEDs if neurosurgeon can be contacted and verify safe to do so. io charts reviewed, no neurosurgery notes available. Denies SI/AVH/bambi/PTSD symptoms. Denies side effects from medications. 1. Bipolar Disorder, type I, depressive episode Plan: continue lamictal 20 mg daily (risks/benefits/SJS discussed), oxcarbazapine 450 mg daily (refused today), lurasidone 40 mg daily, hydroxyzine 50mg q4hr prn anxiety, seroquel 25 mg nightly for sleep. Continue to monitor for safety, suicidal ideations, depression, anxiety, manic symptoms and contact other providers to determine if AED medications can be discontinued. TIME SPENT: 15 minutes. Vital Signs Vital Signs Date Time Temp Pulse Resp B/P (MAP) Pulse Ox O2 Delivery O2 Flow Rate FiO2 10/31/18 06:00 97.5 76 18 140/74 (96) 10/30/18 09:02 98 10/27/18 21:06 Room Air Current Medications Current Medications Acetaminophen (Tylenol Tab) 650 mg Q6HP PRN PO HEADACHE or DISCOMFORT Last administered on 10/29/18 19:08; Start 10/27/18 at 20:30 Al Hydrox/Mg Hydrox/Simethicone (Mylanta) 30 ml Q4HP PRN PO HEARTBURN/INDIGESTION; Start 10/27/18 at 20:30 Buspirone HCl (Buspar) 10 mg TID PO Last administered on 10/31/18at 08:16; Start 10/27/18 at 21:00 Hydroxyzine HCl (Atarax) 50 mg Q4HP PRN PO ANXIETY/AGITATION Last administered on 10/30/18at 09:05; Start 10/27/18 at 20:30 Lamotrigine (LaMICtal) 25 mg DAILY PO Last administered on 10/31/18at 08:16; Start 10/28/18 at 09:00 Lorazepam (Ativan) 2 mg STAT STAT PO Last administered on 10/27/18at 18:15; Start 10/27/18 at 17:50; Stop 10/27/18 at 17:51; Status DC Lurasidone HCl (Latuda) 40 mg DAILY@08 PO Last administered on 10/31/18at 08:16; Start 10/28/18 at 08:00 Lurasidone HCl (Latuda) 40 mg DAILY@08 PO ; Start 10/28/18 at 08:00; Status UNV Lurasidone HCl (Latuda) 120 mg DAILY@08 PO ; Start 10/28/18 at 08:00; Stop 10/28/18 at 11:46; Status DC Magnesium Hydroxide (Milk Of Magnesia) 30 ml DAILYPRN PRN PO CONSTIPATION; Start 10/27/18 at 20:30 Oxcarbazepine (Trileptal) 450 mg DAILY PO Last administered on 10/28/18at 12:06; Start 10/28/18 at 09:00 Quetiapine Fumarate (SEROquel) 25 mg QHS PO Last administered on 10/30/18at 20:49; Start 10/28/18 at 21:00; Stop 11/28/18 at 21:00 Trazodone HCl (Desyrel) 50 mg QHSP PRN PO INSOMNIA; Start 10/27/18 at 20:30; Status Cancel Allergies Coded Allergies: MS - No Known Drug Allergy (Verified Allergy, Unknown, 10/27/18) EVELYNE SCHILLING PGY-1 Oct 31, 2018 13:09
[2018-10-31] MEDS: ACETAMINOPHEN TAB 650MG DOSE (2X325MG) PO PRN (17:41)
[2018-10-31 18:50] VITALS: BP 128/70
[2018-10-31] MEDS: QUEtiapine FUMARATE 25 MG TAB PO SCH (20:56)
[2018-11-01 06:49] VITALS: BP 124/60
[2018-11-01] MEDS: hydrOXYzine 50 MG TAB PO PRN (08:11)
[2018-11-01] MEDS: busPIRone 10 MG TAB PO SCH ×3 (08:11→20:23)
[2018-11-01] MEDS: LURASIDONE HCL 40 MG TAB (LATUDA) PO SCH (08:11)
[2018-11-01] MEDS: lamoTRIgine 25 MG TAB PO SCH (08:11)
[2018-11-01] MEDS: OXcarbazepine 150 MG TAB PO SCH (08:11)
--- NOTE | 2018-11-01 13:50 | MHIPNPDOC ---
[facility] Progress Note Progress Note DATE OF SERVICE: 11/01/18 HISTORY: See HPI. Interval History: Patient states she continues to have depressed mood and occasional suicidal thoughts. Per outside provider she was not adherent to medications and appointments both with medicine and former outpatient provider in Psychiatry. She has a seizure disorder, but oxcarbazepine was not prescribed for greater than 1 year. She denies seizures despite not taking the medications and has not had a seizure for more than 10 years. She has been refusing the medication during her stay and has been adherent with lamictal 25 mg which was previously at 250 mg BID. She agrees to start lexpro 10 mg Po daily for depressed mood. Denies AVH/bambi/HI. VITAL SIGNS: See below. NEW TEST RESULTS: EKG 10/30/18, normal EKG CURRENT MEDICATIONS: See below. MENTAL STATUS EXAMINATION: Patient is a 58-year old female, who is in casual clothing, with glasses, pleasant, cooperative. Speech: Is decreased rate, rhythm, volume. Language skills are intact Thought processes including: circumstantial Thought content: anhedonic Abstract reasoning, and computation: intact Description of associations: intact Description of abnormal or psychotic thoughts: denies Judgment: improving Insight: poor Orientation: x3 Recent and remote memory: Intact Attention span and concentration: decreased Language: indonesian Fund of knowledge: normal Mood: "still depressed" Affect: dysthymic, blunted, mood-congruent, does not smile Assessment: Pt with a history of bipolar disorder currently experiencing, decreased sleep, increased anxiety and depression secondary to isolation since divorce 2-3 years ago. Agreeable to re-starting AED mediactions, lamictal 25 mg, buspar 10 mg TID, prn hydroxyzine 50 mg Q4 PRN, and seroquel 25 mg for bipolar depressive symptoms. Has a lengthy history of poor follow-up, did not show up after her last discharge from [facility]. Agrees to medicine changes, denies side effects. Continues to have depressive symptoms, passive SI. Denies SI/AVH/bambi/PTSD symptoms. Denies side effects from medications. 1. Bipolar Disorder, type I, depressive episode Plan: Continue lamictal 25 mg PO daily (risks/benefits/SJS discussed) for mood, discontinue oxcarbazapine 150 mg+300mg QAM for seizures (confirmed with pharmacy prescribed 09/26/[address] Alvarado, but patient has not taken for greater than 1 year, denies seizure for >10 years, outpatient provider did not see in her chart), lurasidone 40 mg daily fo mood lability, hydroxyzine 50mg q4hr prn anxiety, seroquel 25 mg nightly for sleep. Started lexapro 10 mg PO daily for depression. Ordered lipid panel and hba1c. Continue to monitor for safety, suicidal ideations, depression, anxiety, manic symptoms, seizure symptoms. TIME SPENT: 30 minutes. Vital Signs Vital Signs Date Time Temp Pulse Resp B/P (MAP) Pulse Ox O2 Delivery O2 Flow Rate FiO2 11/01/18 06:49 98.6 62 16 124/60 (81) 10/30/18 09:02 98 10/27/18 21:06 Room Air Current Medications Current Medications Acetaminophen (Tylenol Tab) 650 mg Q6HP PRN PO HEADACHE or DISCOMFORT Last administered on 10/31/18at 17:41; Start 10/27/18 at 20:30 Al Hydrox/Mg Hydrox/Simethicone (Mylanta) 30 ml Q4HP PRN PO HEARTBURN/INDIGESTION; Start 10/27/18 at 20:30 Buspirone HCl (Buspar) 10 mg TID PO Last administered on 11/01/18at 08:11; Start 10/27/18 at 21:00 Hydroxyzine HCl (Atarax) 50 mg Q4HP PRN PO ANXIETY/AGITATION Last administered on 11/01/18at 08:11; Start 10/27/18 at 20:30 Lamotrigine (LaMICtal) 25 mg DAILY PO Last administered on 11/01/18at 08:11; Start 10/28/18 at 09:00 Lorazepam (Ativan) 2 mg STAT STAT PO Last administered on 10/27/18at 18:15; Start 10/27/18 at 17:50; Stop 10/27/18 at 17:51; Status DC Lurasidone HCl (Latuda) 40 mg DAILY@08 PO Last administered on 11/01/18at 08:11; Start 10/28/18 at 08:00 Lurasidone HCl (Latuda) 40 mg DAILY@08 PO ; Start 10/28/18 at 08:00; Status UNV Lurasidone HCl (Latuda) 120 mg DAILY@08 PO ; Start 10/28/18 at 08:00; Stop 10/28/18 at 11:46; Status DC Magnesium Hydroxide (Milk Of Magnesia) 30 ml DAILYPRN PRN PO CONSTIPATION; Start 10/27/18 at 20:30 Oxcarbazepine (Trileptal) 450 mg DAILY PO Last administered on 10/28/18at 12:06; Start 10/28/18 at 09:00 Quetiapine Fumarate (SEROquel) 25 mg QHS PO Last administered on 10/31/18at 20:56; Start 10/28/18 at 21:00; Stop 11/28/18 at 21:00 Trazodone HCl (Desyrel) 50 mg QHSP PRN PO INSOMNIA; Start 10/27/18 at 20:30; Status Cancel Allergies Coded Allergies: MS - No Known Drug Allergy (Verified Allergy, Unknown, 10/27/18) EVELYNE SCHILLING PGY-1 Nov 01, 2018 12:05
[2018-11-01] MEDS: ESCITALOPRAM OXALATE 10 MG TAB (LEXAPRO) PO SCH (14:31)
[2018-11-01 18:20] VITALS: BP 140/79
[2018-11-01] MEDS: QUEtiapine FUMARATE 25 MG TAB PO SCH (20:23)
[2018-11-02 06:33] VITALS: BP 142/83
[2018-11-02 07:25] LABS: CHOLESTEROL LEVEL 199 MG/DL (<200); CHOLESTEROL RISK RATIO 4.234 (<5); HDL CHOLESTEROL 47 MG/DL (>40); LDL CHOLESTEROL 126 MG/DL (<100); NON-HDL-C 152 MG/DL; TRIGLYCERIDES LEVEL 129 MG/DL (<150)
[2018-11-02 07:38] LABS: HEMOGLOBIN A1c 4.7 %
[2018-11-02] MEDS: LURASIDONE HCL 40 MG TAB (LATUDA) PO SCH (08:01)
[2018-11-02] MEDS: ESCITALOPRAM OXALATE 10 MG TAB (LEXAPRO) PO SCH (08:01)
[2018-11-02] MEDS: lamoTRIgine 25 MG TAB PO SCH (08:01)
[2018-11-02] MEDS: busPIRone 10 MG TAB PO SCH (08:01)
[2018-11-02] MEDS: hydrOXYzine 50 MG TAB PO PRN ×2 (09:12→18:14)
--- NOTE | 2018-11-02 09:31 | MHIPNPDOC ---
[facility] Progress Note Progress Note DATE OF SERVICE: 11/02/18 HISTORY: See HPI. Interval History: Patient states she continues to be anxious and depressed, but is less isolative in her room and was walking around the hallway, more visible in social milieu. Appetite and sleep are good. States she has started to enjoy groups more and that she has no family to return to. When asked what she thinks about about long-term care, she seemed uninterested and more interested in re turning home. She Denies common or rare side effects from her medications including rash. She agrees to lab tests including RPR, B12, folate, UA, CT head w/o contrast (will be compared to last head CT in 03/01, which showed no acute intracranial pathology). Denies AVH/bambi/HI. VITAL SIGNS: See below. NEW TEST RESULTS: 11/02/18: Lipid panel WNL apart from LDL 126, Hba1c 4.7%, MOCA score 28/30 (has Master's degree, which may mask early dementia if present) CURRENT MEDICATIONS: See below. MENTAL STATUS EXAMINATION: Patient is a 58-year old female, who is in casual clothing, with glasses, pleasant, cooperative. Speech: Is decreased rate, rhythm, volume. Language skills are intact Thought processes including: circumstantial Thought content: anhedonic Abstract reasoning, and computation: intact Description of associations: intact Description of abnormal or psychotic thoughts: denies Judgment: improving Insight: poor Orientation: x3 Recent and remote memory: Intact Attention span and concentration: decreased Language: french Fund of knowledge: normal Mood: "anxious" Affect: anxious,dysthymic, blunted, mood-congruent, does not smile Assessment: Pt with a history of bipolar disorder currently experiencing, decreased sleep, increased anxiety and depression secondary to isolation since divorce 2-3 years ago. Agreeable to re-starting AED mediactions, lamictal 25 mg, buspar 10 mg TID, prn hydroxyzine 50 mg Q4 PRN, and seroquel 25 mg for bipolar depressive symptoms. Has a lengthy history of poor follow-up, did not show up after her last discharge from [facility]. Agrees to continue medications, denies side effects. Continues to have depressive symptoms, chronic passive SI, states will not act on these thoughts. Shakiness may be attributed to side effects from chronic use antipsychotics, will consider possible change in medication after rule out neurocognitive disorder. Labs pending. Denies SI/AVH/bambi/PTSD symptoms. Denies side effects from medications. 1. Bipolar Disorder, type I, depressive episode Plan: Continue lamictal 25 mg PO daily (risks/benefits/SJS discussed) for mood, continue lurasidone 40 mg daily fo mood lability, hydroxyzine 50mg q4hr prn anxiety, seroquel 25 mg nightly for sleep. Continue lexapro 10 mg PO daily for depression. Ordered lipid panel and hba1c. Continue to monitor for safety, suicidal ideations, depression, anxiety, manic symptoms, seizure symptoms. TIME SPENT: 30 minutes. Vital Signs Vital Signs Date Time Temp Pulse Resp B/P (MAP) Pulse Ox O2 Delivery O2 Flow Rate FiO2 11/02/18 06:33 98.4 60 14 142/83 (102) 10/30/18 09:02 98 10/27/18 21:06 Room Air Laboratory Data 24H Labs Laboratory Tests 2 11/02/18 06:26: Estimated Mean Plasma Glucose 88, Hemoglobin A1c 4.7, Triglycerides Level 129, LDL Cholesterol 126H, Total Cholesterol 199, Non-HDL Cholesterol (LDL + VLDL) 152, Total HDL Cholesterol 47, Cholesterol/HDL Ratio 4.234 Current Medications Current Medications Acetaminophen (Tylenol Tab) 650 mg Q6HP PRN PO HEADACHE or DISCOMFORT Last administered on 10/31/18at 17:41; Start 10/27/18 at 20:30 Al Hydrox/Mg Hydrox/Simethicone (Mylanta) 30 ml Q4HP PRN PO HEARTBU RN/INDIGESTION; Start 10/27/18 at 20:30 Buspirone HCl (Buspar) 10 mg TID PO Last administered on 11/02/18at 08:01; Start 10/27/18 at 21:00 Escitalopram Oxalate (Lexapro) 10 mg DAILY PO Last administered on 11/02/18at 08:01; Start 11/01/18 at 09:00 Hydroxyzine HCl (Atarax) 50 mg Q4HP PRN PO ANXIETY/AGITATION Last administered on 11/02/18at 09:12; Start 10/27/18 at 20:30 Lamotrigine (LaMICtal) 25 mg DAILY PO Last administered on 11/01/18at 08:11; Start 10/28/18 at 09:00; Stop 11/01/18 at 12:39; Status DC Lamotrigine (LaMICtal) 25 mg QAM PO Last administered on 11/02/18at 08:01; Start 11/02/18 at 09:00 Lorazepam (Ativan) 2 mg STAT STAT PO Last administered on 10/27/18at 18:15; Start 10/27/18 at 17:50; Stop 10/27/18 at 17:51; Status DC Lurasidone HCl (Latuda) 40 mg DAILY@08 PO Last administered on 11/02/18at 08:01; Start 10/28/18 at 08:00 Lurasidone HCl (Latuda) 40 mg DAILY@08 PO ; Start 10/28/18 at 08:00; Status UNV Lurasidone HCl (Latuda) 120 mg DAILY@08 PO ; Start 10/28/18 at 08:00; Stop 10/28/18 at 11:46; Status DC Magnesium Hydroxide (Milk Of Magnesia) 30 ml DAILYPRN PRN PO CONSTIPATION; Start 10/27/18 at 20:30 Oxcarbazepine (Trileptal) 450 mg DAILY PO Last administered on 10/28/18at 12:06; Start 10/28/18 at 09:00; Stop 11/01/18 at 13:24; Status DC Quetiapine Fumarate (SEROquel) 25 mg QHS PO Last administered on 11/01/18at 20:23; Start 10/28/18 at 21:00; Stop 11/28/18 at 21:00 Trazodone HCl (Desyrel) 50 mg QHSP PRN PO INSOMNIA; Start 10/27/18 at 20:30; Status Cancel Allergies Coded Allergies: MS - No Known Drug Allergy (Verified Allergy, Unknown, 10/27/18) EVELYNE SCHILLING PGY-1 Nov 02, 2018 09:31
[2018-11-02 10:54] LABS: VITAMIN B12 LEVEL 379 PG/ML
[2018-11-02 10:56] LABS: FOLATE 7.1 NG/ML
--- NOTE | 2018-11-02 11:30 | REP ---
CT Head without contrast HISTORY: Facial droop COMPARISON: 02/29/2016 The patient is status post left frontal craniotomy. An area of decreased attenuation is present in the left frontal lobe. There is dilatation of the overlying cortical sulci and anterior horn of the left lateral ventricle. This represents encephalomalacia. There is no intraparenchymal hemorrhage, acute infarct, mass or midline shift. There is no hydrocephalus or extracerebral collection. There is no fracture. The visualized sinuses are clear. IMPRESSION: Left frontal lobe encephalomalacia. Electronically Signed by Daren Katz MD 11/02/2018 11:22 A
[2018-11-02] MEDS: busPIRone 5 MG TAB PO SCH ×2 (15:56→21:47)
[2018-11-02 18:02] VITALS: BP 130/77
[2018-11-02] MEDS ORDERED: BENZTROPINE 1 MG TAB PO ONE (18:30)
[2018-11-03 06:09] VITALS: BP 143/80
[2018-11-03] MEDS: LURASIDONE HCL 40 MG TAB (LATUDA) PO SCH (08:09)
[2018-11-03] MEDS: ESCITALOPRAM OXALATE 10 MG TAB (LEXAPRO) PO SCH (08:09)
[2018-11-03] MEDS: lamoTRIgine 25 MG TAB PO SCH ×2 (08:09→20:25)
[2018-11-03] MEDS: busPIRone 5 MG TAB PO SCH ×3 (08:09→20:25)
[2018-11-03] MEDS: hydrOXYzine 50 MG TAB PO PRN (09:49)
--- NOTE | 2018-11-03 10:04 | MHIPNPDOC ---
[facility] Progress Note Progress Note DATE OF SERVICE: 11/03/18 HISTORY: See HPI. Interval History: Patient has increased range of affect today. States mood is improved. No longer flat/blunted, was smiling during interview. Reports increased energy and shakiness significantly improved since decreased dose of lurasidone. Was made aware that neurology will see today and says she will consider moving down with her son after talking to him today. She discussed how she fell into a deep depression when left isolated at her home in [facility]. She was educated on isolation/loneliness as triggers fore her depression and that especially after leaving hospital would benefit from help to ensure compliance with medications and support. States she did not receive seroquel last night and did not sleep as well. Denies AVH/bambi/HI. VITAL SIGNS: See below. NEW TEST RESULTS: MOCA (note has Master's degree which may mask early dementia symptoms); 11/02/18: Head CT, Left frontal encephalomalacia, ESR 9, TSH WNL, RPR non-reactive, B12/folate/UA pending, reordered CMP Consult: neurology for AED coverage in context Head CT findings, with mild R facial droop not seen on last inpatient admission; reports not taking 450 mg QAM oxcarbazepine for > 1year, has refused on inpatient unit. CURRENT MEDICATIONS: See below. MENTAL STATUS EXAMINATION: Patient is a 58-year old female, who is in casual clothing, with glasses, pleasant, cooperative. Speech: Is decreased rate, rhythm, volume. Language skills are intact Thought processes including: circumstantial Thought content: anhedonic Abstract reasoning, and computation: intact Descr iption of associations: intact Description of abnormal or psychotic thoughts: denies Judgment: improving Insight: poor Orientation: x3 Recent and remote memory: Intact Attention span and concentration: decreased Language: slovenian Fund of knowledge: normal Mood: "alot better" Affect: anxious,dysthymic, blunted, mood-congruent, does not smile Assessment: Pt with a history of bipolar disorder presented with flat affect, tremor, decreased sleep, increased anxiety and depression secondary to isolation since divorce 2-3 years ago. Has a lengthy history of poor follow-up, did not show up after her last discharge from [facility]. No seizure reported >10-15 years. Reports improved mood, increased affective range noted, now smiles. Increased energy level, attending groups and agreeable to contacting son for possible supportive living situation. Repeat cmp ordered to rule out hyper/hyponatr emia/calcemia. CT shows Left frontal encephalomalacia, No signs of infection: ESR non-elevated, no F. Denies SI/AVH/bambi/PTSD symptoms. Denies common and rare side effects from medications, parkinsonian symptoms likely improving by decreasing dose of lat uda. 1. Bipolar Disorder, type I, depressive episode Plan: Continue lamictal 25 mg PO daily (risks/benefits/SJS discussed) for mood, decreased lurasidone from 40 to 20 mg daily fo mood lability, hydroxyzine 50mg q4hr prn anxiety, seroquel increased from 25 to 100 mg nightly for sleep (cross taper in process decreasing latuda and increasing seroquel due to possible parkinsonian symptoms, upper body tremors both passive and active. Continue lexapro 10 mg PO daily for depression. Pending neurology consult. Continue to monitor for safety, suicidal ideations, depression, anxiety, manic symptoms, seizure symptoms. TIME SPENT: 20 minutes. Vital Signs Vital Signs Date Time Temp Pulse Resp B/P (MAP) Pulse Ox O2 Delivery O2 Flow Rate FiO2 11/03/18 06:09 98.3 61 14 143/80 (101) 10/30/18 09:02 98 Current Medications Current Medications Acetaminophen (Tylenol Tab) 650 mg Q6HP PRN PO HEADACHE or DISCOMFORT Last administered on 10/31/18at 17:41; Start 10/27/18 at 20:30 Al Hydrox/Mg Hydrox/Simethicone (Mylanta) 30 ml Q4HP PRN PO HEARTBURN/INDIGESTION; Start 10/27/18 at 20:30 Buspirone HCl (Buspar) 10 mg TID PO Last administered on 11/02/18at 08:01; Start 10/27/18 at 21:00; Stop 11/02/18 at 10:45; Status DC Buspirone HCl (Buspar) 15 mg TID PO Last administered on 11/03/18at 08:09; Start 11/02/18 at 16:00 Escitalopram Oxalate (Lexapro) 10 mg DAILY PO Last administered on 11/03/18at 08:09; Start 11/01/18 at 09:00 Hydroxyzine HCl (Atarax) 50 mg Q4HP PRN PO ANXIETY/AGITATION Last administered on 11/02/18at 18:14; Start 10/27/18 at 20:30 Lamotrigine (LaMICtal) 25 mg DAILY PO Last administered on 11/01/18at 08:11; Start 10/28/18 at 09:00; Stop 11/01/18 at 12:39; Status DC Lamotrigine (LaMICtal) 25 mg QAM PO Last administered on 11/03/18at 08:09; Start 11/02/18 at 09:00 Lorazepam (Ativan) 2 mg STAT STAT PO Last administered on 10/27/18at 18:15; Start 10/27/18 at 17:50; Stop 10/27/18 at 17:51; Status DC Lurasidone HCl (Latuda) 20 mg DAILY@0800 PO ; Start 11/04/18 at 08:00 Lurasidone HCl (Latuda) 40 mg DAILY@08 PO Last administered on 11/03/18at 08:09; Start 10/28/18 at 08:00; Stop 11/03/18 at 10:00 Lurasidone HCl (Latuda) 40 mg DAILY@08 PO ; Start 10/28/18 at 08:00; Status UNV Lurasidone HCl (Latuda) 120 mg DAILY@08 PO ; Start 10/28/18 at 08:00; Stop 10/28/18 at 11:46; Status DC Magnesium Hydroxide (Milk Of Magnesia) 30 ml DAILYPRN PRN PO CONSTIPATION; Start 10/27/18 at 20:30 Oxcarbazepine (Trileptal) 450 mg DAILY PO Last administered on 10/28/18at 12:06; Start 10/28/18 at 09:00; Stop 11/01/18 at 13:24; Status DC Quetiapine Fumarate (SEROquel) 25 mg QHS PO Last administered on 11/01/18at 20:23; Start 10/28/18 at 21:00; Stop 11/02/18 at 17:15; Status DC Quetiapine Fumarate (SEROquel) 100 mg QHS PO ; Start 11/03/18 at 21:00 Trazodone HCl (Desyrel) 50 mg QHSP PRN PO INSOMNIA; Start 10/27/18 at 20:30; Status Cancel Allergies Coded Allergies: MS - No Known Drug Allergy (Verified Allergy, Unknown, 10/27/18) EVELYNE SCHILLING PGY-1 Nov 03, 2018 09:22
[2018-11-03 10:14] LABS: ALBUMIN 3.5 GM/DL (3.2-5.2); ALT/SGPT 50 U/L (12-78); BILIRUBIN,TOTAL 0.4 MG/DL (0.2-1.0); BLOOD UREA NITROGEN 8 MG/DL (7-18); CARBON DIOXIDE LEVEL 28 MEQ/L (21-32); CHLORIDE LEVEL 110 MEQ/L (98-107); CREATININE FOR GFR 0.62 MG/DL (0.55-1.30); GLOMERULAR FILTRATION RATE > 60.0 (>51); GLUCOSE, FASTING 80 MG/DL (70-100); POTASSIUM SERUM 4.1 MEQ/L (3.5-5.1); SODIUM LEVEL 144 MEQ/L (136-145); TOTAL PROTEIN 6.6 GM/DL (6.4-8.2)
[2018-11-03 18:00] VITALS: BP 146/86
[2018-11-03] MEDS ORDERED: QUEtiapine FUMARATE 100 MG TAB PO SCH (21:00)
[2018-11-04 06:47] VITALS: BP 122/69
[2018-11-04] MEDS ORDERED: LURASIDONE 20 MG TAB (LATUDA) PO SCH (08:00)
--- NOTE | 2018-11-04 08:29 | CR ---
DATE OF CONSULTATION: 11/03/2018 REFERRING PHYSICIAN: Dr. Banda. REASON FOR CONSULTATION: History of seizures. HISTORY OF PRESENT ILLNESS: Debbie Luna is a 58-year-old old woman with history of bipolar disorder who was admitted at inpatient mental health unit for bipolar disorder. The patient had stated at the time of admission that she had not been taking her medications for a while because they were not working. According to medical records, the patient has not been compliant with her medications and has not been following with her doctors either. The patient denies any headaches, neck or back pain. She denies any dysphagia, dysarthria, diplopia or urinary incontinence. The patient is a poor historian. The patient states that she had colloid cysts removed from by Dr. Strickland at [facility] in 2003 and 2007. She states that she had seizures before her cysts were removed each time. She states that she would pass out for unknown duration of time. Her family has seen these spells. When asked about shaking and urinary incontinence or tongue biting, she states that she does not remember as it has been so long. She states that she also had staring episodes but is unable to provide any other history about them including their duration or postictal phase. The patient states that she has been on oxcarbazepine since her brain surgeries. of her brain. She stopped taking it as well. According to referring physician, patient told them that it made her drowsy but when I asked the patient if oxcarbazepine cause any side effects, she completely denies any side effects. She states that it did not make her drowsy. PAST MEDICAL HISTORY: Bipolar disorder, Anxiety. Migraines. Lumbosacral degenerative disc disease. Ovarian cyst. Dyslipidemia. Kidney stones. Recurrent urinary tract infection (UTI). Colloid cyst resection twice in 2003 and 2007 at [facility]. Seizures. Appendectomy. Cholecystectomy. Hysterectomy. SOCIAL HISTORY: She is . She denies smoking, alcohol or illicit drugs. FAMILY HISTORY: Father had heart disease. Mother is alive and has hypertension. REVIEW OF SYSTEMS: All systems were reviewed and found to be noncontributory except as mentioned in history of present illness. HOME MEDICATIONS: - lamotrigine 25 mg by mouth daily - Latuda 40 mg by mouth daily - oxcarbazepine 150 and 300 mg daily - trazodone - hydroxyzine ALLERGIES: None. PHYSICAL EXAMINATION: Temperature is 98.5, pulse 79, respiratory 12, blood pressure 113/68. Heart: Regular rate and rhythm. Lungs: Clear to auscultation. Abdomen: Soft, nontender, nondistended. No pedal edema. No musculoskeletal abnormalities. No rash. No signs of meningeal irritation. The patient has mild action and postural tremor of both hands. The patient is awake, alert, oriented to place, person and time. Normal speech, comprehension and repetition. Extraocular muscles are intact. No facial weakness. Tongue and uvula are midline. 5/5 strength in all four extremities. Deep tendon flexes 2+ throughout. Normal sensation. Gait is normal. DIAGNOSTIC STUDIES: CT scan of her head showed left frontal encephalomalacia. This is the surgical resection site for her colloid cyst. ASSESSMENT: 1. History of colloid cysts status post resection twice. 2. Left frontal encephalomalacia - stable. 3. History of seizures. PLAN: 1. We can gradually increase lamotrigine to a target dose of 150 mg by mouth twice daily and use that for her bipolar disorder and her seizures as well. Its dose can be adjusted gradually over time. Referring physician told me on phone that patient complained of oxcarbazepine making her drowsy but the patient completely denies that. If she has any recurrent seizures, we can reconsider using oxcarbazepine in future. For now, we can use lamotrigine for both her seizures and her mood disorder. 2. Management of her bipolar disorder and psychiatric problems per psychiatry.
[2018-11-04] MEDS: ESCITALOPRAM OXALATE 10 MG TAB (LEXAPRO) PO SCH (08:59)
[2018-11-04] MEDS: lamoTRIgine 25 MG TAB PO SCH ×2 (08:59→21:07)
[2018-11-04] MEDS: busPIRone 5 MG TAB PO SCH ×3 (08:59→21:08)
--- NOTE | 2018-11-04 14:10 | MHIPNPDOC ---
[facility] Progress Note Progress Note DATE OF SERVICE: 11/04/18 HISTORY: See HPI. Interval History: Patient continues to attend increasing numbers of groups, was seen reading a book comfortably in her bed. Has brighter affect and reports "good" mood. No longer has latency of speech and states she does not have muscle tightness, shakiness significantly decreased in upper body. she agrees with plan to titrate off lurasidone over the weekend and titrate up Lamictal up per faith rology recommendations for seizure coverage and to control potential for manic symptoms. States she has no physical complaints at this time. Denies headache. Denies depressed mood, denies anxiety, denies AVH/bambi/PTSD. Denies SI/HI. Says in the morning she has "mild grogginess, but no lightheadedness or dizziness. VITAL SIGNS: See below. NEW TEST RESULTS: MOCA (note has Master's degree which may mask early dementia symptoms); 11/02/18: Head CT, Left frontal encephalomalacia, ESR 9, TSH WNL, RPR non-reactive, B12/folate/UA pending, reordered CMP Consult: neurology for AED coverage in context Head CT findings, with mild R f acial droop not seen on last inpatient admission; reports not taking 450 mg QAM oxcarbazepine for > 1year, has refused on inpatient unit. CURRENT MEDICATIONS: See below. MENTAL STATUS EXAMINATION: Patient is a 58-year old female, who is in casual clothing, with glasses, pleasant, cooperative. Speech: Is decreased rate, rhythm, volume. Language skills are intact Thought processes including: circumstantial Thought content: anhedonic Abstract reasoning, and computation: intact Description of associations: intact Description of abnormal or psychotic thoughts: denies Judgment: improving Insight: poor Orientation: x3 Recent and remote memory: Intact Attention span and concentration: decreased Language: slovenian Fund of knowledge: normal Mood: "good" Affect: euthymic, mildly constricted, smiles. Assessment: Pt. with a history of bipolar disorder presented with flat affect, tremor, decreased sleep, increased anxiety and depression secondary to isolation since divorce 2-3 years ago. Has a lengthy history of poor follow-up, did not show up after her last discharge from [facility]. No seizure reported >10-15 years. Was seen by neurology consult (recommendations appreciated) for AED and facial droop, patient has significantly increased mood/decreased speech latency, tremor and psychomotor retardation since decrease in her latuda and increased of her lamictal and added nightly seroquel. Agrees to medication changes, denies common or rare side effects of medications. Denies SI/HI/AVH/bambi/PTSD symptoms. Denies common and rare side effects from medications including but not limited to rash, parkinsonian symptoms likely improving by decreasing dose of latuda. 1. Bipolar Disorder, type I, depressive episode Plan: Increased lamictal to 50 mg PO daily (risks/benefits/SJS discussed) for mood, decreased lurasidone from 20 to 10 mg daily (plan to d/c over the weekend), hydroxyzine 50mg q4hr prn anxiety, seroquel increased from 100 to 150 mg nightly for sleep (cross taper in process decreasing latuda and increasing seroquel due to possible parkinsonian symptoms, upper body tremors both passive and active. Continue lexapro 10 mg PO daily for depression. Per neurology consult will titrate up to 150 mg PO BID lurasidone, will monitor for rash. Continue to monitor for safety, suicidal ideations, depression, anxiety, manic symptoms, seizure symptoms. TIME SPENT: 15 minutes. Vital Signs Vital Signs Date Time Temp Pulse Resp B/P (MAP) Pulse Ox O2 Delivery O2 Flow Rate FiO2 11/04/18 06:47 97.6 56 14 122/69 (86) 10/30/18 09:02 98 Current Medications Current Medications Acetaminophen (Tylenol Tab) 650 mg Q6HP PRN PO HEADACHE or DISCOMFORT Last administered on 10/31/18at 17:41; Start 10/27/18 at 20:30 Al Hydrox/Mg Hydrox/Simethicone (Mylanta) 30 ml Q4HP PRN PO HEARTBURN/INDIGESTION; Start 10/27/18 at 20:30 Buspirone HCl (Buspar) 10 mg TID PO Last administered on 11/02/18at 08:01; Start 10/27/18 at 21:00; Stop 11/02/18 at 10:45; Status DC Buspirone HCl (Buspar) 15 mg TID PO Last administered on 11/04/18at 08:59; Start 11/02/18 at 16:00 Escitalopram Oxalate (Lexapro) 10 mg DAILY PO Last administered on 11/04/18 08:59; Start 11/01/18 at 09:00 Hydroxyzine HCl (Atarax) 50 mg Q4HP PRN PO ANXIETY/AGITATION Last administered on 11/03/18at 09:49; Start 10/27/18 at 20:30 Lamotrigine (LaMICtal) 25 mg DAILY PO Last administered on 11/01/18at 08:11; Start 10/28/18 at 09:00; Stop 11/01/18 at 12:39; Status DC Lamotrigine (LaMICtal) 25 mg QAM PO Last administered on 11/03/18at 08:09; Start 11/02/18 at 09:00; Stop 11/03/18 at 13:45; Status DC Lamotrigine (LaMICtal) 50 mg BID PO Last administered on 11/04/18 08:59; Start 11/03/18 at 21:00; Stop 11/06/18 at 22:00 Lamotrigine (LaMICtal) 100 mg BID PO ; Start 11/07/18 at 21:00; Stop 11/27/18 at 20:59; Status UNV Lorazepam (Ativan) 2 mg STAT STAT PO Last administered on 10/27/18at 18:15; Start 10/27/18 at 17:50; Stop 10/27/18 at 17:51; Status DC Lurasidone HCl (Latuda) 10 mg DAILY@0800 PO ; Start 11/05/18 at 08:00; Stop 11/07/18 at 12:00; Status UNV Lurasidone HCl (Latuda) 20 mg DAILY@0800 PO Last administered on 11/04/18at 08:59; Start 11/04/18 at 08:00; Stop 11/04/18 at 13:19; Status DC Lurasidone HCl (Latuda) 40 mg DAILY@08 PO Last administered on 11/03/18at 08:09; Start 10/28/18 at 08:00; Stop 11/03/18 at 10:00; Status DC Lurasidone HCl (Latuda) 40 mg DAILY@08 PO ; Start 10/28/18 at 08:00; Status UNV Lurasidone HCl (Latuda) 120 mg DAILY@08 PO ; Start 10/28/18 at 08:00; Stop at 11:46; Status DC Magnesium Hydroxide (Milk Of Magnesia) 30 ml DAILYPRN PRN PO CONSTIPATION; Start 10/27/18 at 20:30 Oxcarbazepine (Trileptal) 450 mg DAILY PO Last administered on 10/28/18at 12:06; Start 10/28/18 at 09:00; Stop 11/01/18 at 13:24; Status DC Quetiapine Fumarate (SEROquel) 25 mg QHS PO Last administered on 11/01/18at 20:23; Start 10/28/18 at 21:00; Stop 11/02/18 at 17:15; Status DC Quetiapine Fumarate (SEROquel) 100 mg QHS PO Last administered on 11/03/18at 20:25; Start 11/03/18 at 21:00; Stop 11/04/18 at 13:19; Status DC Quetiapine Fumarate (SEROquel) 150 mg QHS PO ; Start 11/04/18 at 21:00; Status UNV Trazodone HCl (Desyrel) 50 mg QHSP PRN PO INSOMNIA; Start 10/27/18 at 20:30; Status Cancel Allergies Coded Allergies: MS - No Known Drug Allergy (Verified Allergy, Unknown, 10/27/18) EVELYNE SCHILLING PGY-1 Nov 04, 2018 13:20
[2018-11-04 18:03] VITALS: BP 124/65
[2018-11-04] MEDS: QUEtiapine FUMARATE 50 MG TAB PO SCH (21:07)
[2018-11-05 06:13] VITALS: BP 140/79
[2018-11-05] MEDS: ESCITALOPRAM OXALATE 10 MG TAB (LEXAPRO) PO SCH (08:04)
[2018-11-05] MEDS: lamoTRIgine 25 MG TAB PO SCH ×2 (08:04→20:33)
[2018-11-05] MEDS: busPIRone 5 MG TAB PO SCH ×3 (08:04→20:33)
[2018-11-05] MEDS: LURASIDONE 20 MG TAB (LATUDA) PO SCH (08:04)
[2018-11-05 18:00] VITALS: BP 135/80
[2018-11-05] MEDS: QUEtiapine FUMARATE 50 MG TAB PO SCH (20:34)
[2018-11-06 06:31] VITALS: BP 129/78
[2018-11-06] MEDS: LURASIDONE 20 MG TAB (LATUDA) PO SCH (08:06)
[2018-11-06] MEDS: busPIRone 5 MG TAB PO SCH ×3 (08:06→20:56)
[2018-11-06] MEDS: ESCITALOPRAM OXALATE 10 MG TAB (LEXAPRO) PO SCH (08:07)
[2018-11-06] MEDS: lamoTRIgine 25 MG TAB PO SCH ×2 (08:07→20:56)
[2018-11-06 18:00] VITALS: BP 139/84
[2018-11-06] MEDS: QUEtiapine FUMARATE 50 MG TAB PO SCH (20:56)
[2018-11-07 06:00] VITALS: BP 126/70
[2018-11-07] MEDS: LURASIDONE 20 MG TAB (LATUDA) PO SCH (08:10)
[2018-11-07] MEDS: busPIRone 5 MG TAB PO SCH (08:10)
[2018-11-07] MEDS: ESCITALOPRAM OXALATE 10 MG TAB (LEXAPRO) PO SCH (08:10)
[2018-11-07] MEDS ORDERED: lamoTRIgine 100MG TAB PO SCH ×2 (09:30→21:00)
[2018-11-07] MEDS ORDERED: ESCI10TA2 PO (11:12)
[2018-11-07] MEDS ORDERED: BUSP5TA PO (11:12)
[2018-11-07] MEDS ORDERED: LAMO10TA PO (11:12)
[2018-11-07] MEDS ORDERED: QUET5TAB PO (11:12)
--- NOTE | 2018-11-08 10:00 | MHDSPDOC ---
[facility] Discharge Summary Discharge Summary DATE OF ADMISSION: Oct 27, 2018 at 20:22 DATE OF DISCHARGE: Nov 07, 2018 DISCHARGE DIAGNOSES: 1. 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 After last admission at [facility] (July 2018) decided to go off all medications, because she was feeling "blah" and felt she was not getting any better. States last appointment with outpatient provider Dr. Hameed was in August of this year. States she was not being listened to and wishes to have a different therapist. Says she stopped taking care of herself and "going out". Says she had trouble concentrating and doing daily tasks. She says she didn't care about anything, decreased mood, appetite was "not good" (says most due to not being able to take of herself", says she was only sleeping a couple hours a night for last few weeks (denies sleeping during the day), sta dacia she doesn't feel she could sleep even if she tried. Says her last seizure was approximately 10 years ago. Says she was supposed to be taking 140 mg PO daily lurasidone. Says despite not taking her medications has not had a manic episode, last manic episode reported to be approximately 1.5 to 2 years. Her her reported manic episode lasted 2 days (says never had an episode last 4 or more days), symptoms included increased energy, lack of sleep, "anger". States she has not felt like herself for almost 2 years." CONSULTANTS INVOLVED: Neurology for AED coverage and a possible droop R side of mouth, not noticed by patient. TREATMENT AND PROGRESS ON THE UNIT : Patient admitted on a 9.39 involuntary status to the [facility] with depression and inability to care for herself. EKG was normal 10/30/18. 11/02/18: Urine drug screen and BAL were negative. Lipid panel unremarkable apart from LDL 126, Hba1c 4.7%, MOCA score 28/30 (has Master's degree, which may mask early dementia if present). She had shakiness and was withdrawn. She was worked up for neurocognitive disorder. RPR was negative. B12 and folate were within normal limits. TSH was within normal limits at 1.680. Head CT 11/01/18 showed Left frontal lobe encephalomalacia. As was not significantly changed from last head CT in 2017. Per nursing staff who saw her on last admission she had developed a R sided drooping of the R corner of her mouth. Neurology was also consulted after reviewing charts to ensure coverage by her AED medications if needed and possible cause of R mouth droop. Per recommendations she did not require oxcarbazepine as previously prescribed, but not taken for 1 year. Lamictal could be increased to 150 mg PO BID, she was started on 50 mg PO lamictal BID which was titrated up over 1 week to 100 mg PO BID. She should have this increased to 150 mg PO BID as tolerated by her outside provider within a few weeks. She was also started on seroquel 100 mg PO QHS which was increased to 150 mg PO nightly for sleep. Escitalopram 10 mg PO daily was started for depressed mood and anhedonia (patient was flat on admission and during stay affective range increased and she began to smile on most days). Blood pressure remained in the 120's/70's-80's during her stay.Her depression and anxiety symptoms improved and she denied any common or rare side effects of her medications. Shakiness decreased significantly after tapering down and discontinuing her lurasidone. HOSPITAL COURSE: As seen above. DISCHARGE ASSESSMENT: Patient alert and oriented x4, calm, cooperative, in no acute distress, denies any suicidal or homicidal thoughts at time of discharge. Denies any auditory or visual hallucinations. Denies paranoia or manic symptoms. States she is ready to leave and denies any common or rare side effects of medications. Note: LFTs were elevated in the 40's during stay, she should be assessed for any hepatic impairment on follow-up. MENTAL STATUS EXAMINATION ON DISCHARGE: Patient is a 58-year old female, who is in casual clothing, with glasses, pleasant, cooperative. Speech: normal rate, rhythm, volume. Language skills are intact Thought processes including: linear, logical Thought content: Wants to reconnect with family Abstract reasoning, and computation: intact Description of associations: intact Description of abnormal or psychotic thoughts: denies Judgment:fair Insight: good Orientation: x4 Recent and remote memory: Intact Attention span and concentration: improved Language: urdu Fund of knowledge: normal Mood: "good" Affect: euthymic, mildly constricted, smiles. MEDICATIONS ON DISCHARGE: Scheduled Buspirone HCl (Buspirone HCl) 5 Mg Tab, 15 MG PO TID for anxiety Escitalopram Oxalate (Escitalopram Oxalate) 10 Mg Tab, 10 MG PO DAILY for mood Lamotrigine (LaMICtal) 100 Mg Tab, 100 MG PO BID for bipolar Quetiapine Fumerate (Quetiapine Fumarate) 50 Mg Tab, 150 MG PO QHS for bipolar Scheduled PRN Hydroxyzine HCl (Hydroxyzine HCl) 50 Mg Tab, 50 MG PO Q4HP PRN for ANXIETY/AGITATION PLAN/FOLLOWUP ARRANGEMENTS: Follow Up Care Education Label * Medical * Medical Follow Up [facility]: JEANNIE HUBER * Established With This Provider Yes * Date Nov 22, 2018 * Time 09:45 * Follow Up Care Education Label * Mental Health Appt 1 * Mental Health [facility] * Established With This Provider No PT DISCHARGED DUE TO INACTIVITY * Therapist MANAV MENJIVAR LCSW * Date Nov 14, 2018 * Time 09:00 * * Additional information PLEASE ARRIVE AT LEAST A HALF AN HOUR EARLY TO COMPLETE NEW PATIENT PAPERWORK. The amount of time spent in the coordination of care for this patient was approximately 30 minutes Vital Signs/I&Os Vital Signs Date Time Temp Pulse Resp B/P (MAP) Pulse Ox O2 Delivery O2 Flow Rate FiO2 11/07/18 06:00 98.6 60 20 126/70 (88) Medications Scheduled Buspirone HCl (Buspirone HCl) 5 Mg Tab, 15 MG PO TID for anxiety, #21 Escitalopram Oxalate (Escitalopram Oxalate) 10 Mg Tab, 10 MG PO DAILY for mood, #7 Lamotrigine (LaMICtal) 100 Mg Tab, 100 MG PO BID for bipolar, #14 Quetiapine Fumerate (Quetiapine Fumarate) 50 Mg Tab, 150 MG PO QHS for bipolar, #21 Scheduled PRN Hydroxyzine HCl (Hydroxyzine HCl) 50 Mg Tab, 50 MG PO Q4HP PRN for ANXIETY/AGITATION, #30 Allergies Coded Allergies: MS - No Known Drug Allergy (Verified Allergy, Unknown, 10/27/18) EVELYNE SCHILLING PGY-1 Nov 07, 2018 11:24
== END 2018-11-07 12:50 | disposition home or self-care (01) | DRG 885 ==
LOC: M ED 17:23 → M ED INP 20:22 → M PSY 21:20
PROVIDERS: ADMIT Psychiatry & Neurology Psychiatry; ATTEND Psychiatry & Neurology Psychiatry
DX: F31.9 Bipolar disorder, unspecified (principal); F41.9 Anxiety disorder, unspecified; G43.909 Migraine, unspecified, not intractable, without status migrainosus; E55.9 Vitamin D deficiency, unspecified; E78.5 Hyperlipidemia, unspecified; N20.0 Calculus of kidney; M51.36 Other intervertebral disc degeneration, lumbar region; D72.829 Elevated white blood cell count, unspecified; Z79.899 Other long term (current) drug therapy

== ENCOUNTER 2019-09-03 14:09 | Emergency (ER) | payer OTHER, MEDICARE ==
[~2019-09-03] VITALS: Ht 162.6 cm; Wt 90.9 kg
[~2019-09-03 14:09] MED LIST changes: -/DULO30CA; -/ERYT5OPO OD; -/ESCI20TA PO; -/LAMO10TA PO; -/LAMO15TA PO; -/LAMO20TA PO; +BUSP5TA PO; +CYMB1CAP4 PO; +CYMB1CAP5; -DULO20CA PO; +ERYT1OIN4 OD; +ESCI10TA2 PO; +HYDR1TAB33 PO; -HYDRO50TAB PO; +LAMI1TAB7 PO; +LAMI1TAB8 PO; +LAMI1TAB9 PO; +LAMO100T80 PO; -LAMO10TA PO; -LAMO200T2 PO; +LAMO200T3 PO; +LEXA1TAB2 PO; +QUET5TAB PO; +SERO50TA27 PO; -SERO50TA3 PO; -TRAZ-160 PO; -TRAZ-163 PO; +TRAZ-252 PO; +TRAZ-257 PO; +TRAZ1TAB10 PO; -TRAZO50TA PO
[2019-09-03] MEDS ORDERED: ONDANSETRON 4MG/2ML VIAL (J2405) IV ONE (15:15)
[2019-09-03] MEDS ORDERED: NS 1,000 ML IV ONE (15:15)
--- NOTE | 2019-09-03 15:19 | REP ---
CT abdomen and pelvis without IV or oral contrast: History: Flank pain. History kidney stones. Findings: Preliminary digital internal recruiter radiograph shows clips in right upper quadrant post cholecystectomy. There are several loops of air-filled but nondilated small bowel in the central abdomen. There is linear fibrosis in the lung bases bilaterally on axial images. There is mild to moderate diffuse fatty infiltration of the liver. No focal liver mass lesion is seen. Spleen is unremarkable. Normal adrenal glands are seen bilaterally. No abnormalities noted in the pancreas. The left kidney is unremarkable. There is moderate right-sided hydronephrosis and hydroureter. There is perinephric and peripelvic stranding. There is a right mid ureteral calculus measuring 3 mm. No distal ureteral calculus is observed. No bladder calculus is seen. The uterus is surgically absent. Small and large intestinal bowel loops are normal. No abdominal wall defect is seen. No bony destructive lesion is appreciated. Impression: Right mid ureteral 3 mm obstructive calculus with moderate right-sided hydronephrosis. Electronically Signed by Rey Mims MD 09/03/2019 03:11 P
[2019-09-03] MEDS ORDERED: KETOROLAC 30 MG/ML VIAL (J1885) IV ONE (15:30)
[2019-09-03 15:35] LABS: ALBUMIN 4.2 GM/DL (3.2-5.2); BILIRUBIN,DIRECT 0.1 MG/DL (0.0-0.2); BILIRUBIN,TOTAL 0.4 MG/DL (0.2-1.0); TOTAL PROTEIN 7.9 GM/DL (6.4-8.2)
[2019-09-03 15:41] LABS: BASO # 0.1 10^3/uL (0.0-0.2); BASO % 0.4 % (0.0-1.0); EOS % 0.2 % (0.0-3.0); HEMOGLOBIN 15.4 g/dl (12.0-15.5); LYMPH # 1.7 10^3/uL (1.5-5.0); LYMPH % 10.9 % (24.0-44.0); MEAN CORPUSCULAR HGB CONC 32.8 g/dl (32.0-36.5); MEAN CORPUSCULAR VOLUME 85.5 fl (80.0-96.0); MONO # 1.1 10^3/uL (0.0-0.8); MONO % 7.1 % (0.0-5.0); NEUTROPHILS # 12.7 10^3/uL (1.5-8.5); NEUTROPHILS % 80.8 % (36.0-66.0); PLATELET COUNT, AUTOMATED 455 10^3/uL (150-450); WHITE BLOOD COUNT 15.8 10^3/uL (4.0-10.0)
[2019-09-03] MEDS ORDERED: cefTRIAXone SOD 1 GM in D5W MINI-BAG PLUS 50 ML IV ONE (16:15)
[2019-09-03] MEDS ORDERED: TAMSULOSIN 0.4 MG CAP PO ONE (16:15)
[2019-09-03] MEDS ORDERED: BACT800T5 PO (16:19)
[2019-09-03] MEDS ORDERED: FLOM0.4C39 PO (16:19)
[2019-09-03] MEDS ORDERED: KETO10TAB PO (16:19)
[2019-09-03 16:50] VITALS: BP 122/82
== END 2019-09-03 17:27 | disposition home or self-care (01) ==
LOC: M ED 14:09
DX: N39.0 Urinary tract infection, site not specified (principal); N20.0 Calculus of kidney
CPT/HCPCS: 36415; 74176; 80047; 80076; 81001; 83690; 85025; 87086; 96361; 96365; 96375; 99284; J0696; J1885; J2405

== ENCOUNTER 2019-11-22 18:59 | Inpatient (IN) | payer OTHER, MEDICARE ==
[~2019-11-22] VITALS: Ht 162.6 cm; Wt 86.4 kg
[~2019-11-22 18:59] MED LIST changes: +BACT800T5 PO; +FLOM0.4C39 PO; +KETO10TAB PO
--- NOTE | 2019-11-22 19:31 | ECGEPIP ---
[facility] - ED Test Date: 2019-11-22 Pat Name: SALOMON WINKLER Department: Room: - Gender: Female Nutritionists: lr : 1960 Requested By: CHERYL Barnes Order Number: [id number] Reading MD: Leroy Forrester Measurements Intervals [place] Rate: 97 P: 42 IA: 146 QRS: 11 QRSD: 109 T: 8 QT: 353 QTc: 449 Interpretive Statements SINUS RHYTHM NSTTW ABNORMALITIES SIMILAR TO 10/30/18 Electronically Signed on 11-22-2019 19:31:47 EDT by Leroy Forrester
[2019-11-22] MEDS ORDERED: NS 1,000 ML IV ONE ×2 (19:45→21:30)
[2019-11-22] MEDS ORDERED: MECLIZINE 25 MG TABLET PO ONE ×2 (19:45→21:30)
[2019-11-22 20:20] LABS: BASO # 0.1 10^3/uL (0.0-0.2); BASO % 0.7 % (0.0-1.0); EOS # 0.3 10^3/uL (0.0-0.5); EOS % 3.7 % (0.0-3.0); HEMATOCRIT 39.6 % (36.0-47.0); HEMOGLOBIN 12.9 g/dl (12.0-15.5); LYMPH % 11.4 % (24.0-44.0); MEAN CORPUSCULAR HEMOGLOBIN 28.4 pg (27.0-33.0); MEAN CORPUSCULAR HGB CONC 32.6 g/dl (32.0-36.5); MEAN CORPUSCULAR VOLUME 87.2 fl (80.0-96.0); MONO # 0.5 10^3/uL (0.0-0.8); MONO % 5.7 % (0.0-5.0); NEUTROPHILS # 6.9 10^3/uL (1.5-8.5); NEUTROPHILS % 77.3 % (36.0-66.0); PLATELET COUNT, AUTOMATED 249 10^3/uL (150-450); RED BLOOD COUNT 4.54 10^6/uL (4.00-5.40); WHITE BLOOD COUNT 8.9 10^3/uL (4.0-10.0)
[2019-11-22 20:48] LABS: ALBUMIN 3.2 GM/DL (3.2-5.2); ALT/SGPT 25 U/L (12-78); BILIRUBIN,DIRECT 0.1 MG/DL (0.0-0.2); BILIRUBIN,TOTAL 0.2 MG/DL (0.2-1.0); BLOOD UREA NITROGEN 6 MG/DL (7-18); CARBON DIOXIDE LEVEL 25 MEQ/L (21-32); CHLORIDE LEVEL 110 MEQ/L (98-107); CK-MB VALUE MASS < 1.0 NG/ML (<3.6); CPK CREATINE PHOSPHOKINASE 30 U/L (26-192); CREATININE FOR GFR 0.75 MG/DL (0.55-1.30); GLOMERULAR FILTRATION RATE > 60.0 (>51); GLUCOSE, FASTING 101 MG/DL (70-100); MB/CK RELATIVE INDEX 3.33 (< OR =4); SODIUM LEVEL 143 MEQ/L (136-145); TOTAL PROTEIN 6.3 GM/DL (6.4-8.2); TROPONIN I < 0.02 NG/ML (< 0.10)
[2019-11-22] MEDS ORDERED: ASPIRIN 81 MG CHEW TABLET PO SCH (21:00)
--- NOTE | 2019-11-22 21:18 | REPVR ---
PROCEDURE INFORMATION: Exam: CT Head Without Contrast Exam date and time: 11/22/2019 9:10 PM Age: 59 years old Clinical indication: Dizziness; Additional info: Dizziness, weakness, near syncope TECHNIQUE: Imaging protocol: Computed tomography of the head without contrast. Radiation optimization: All CT scans at this facility use at least one of these dose optimization techniques: automated exposure control; mA and/or kV adjustment per patient size (includes targeted exams where dose is matched to clinical indication); or iterative reconstruction. COMPARISON: CT Head without contrast 11/02/2018 11:11 AM FINDINGS: Brain: Encephalomalacia of the left frontal lobe. The gomez-white differentiation is maintained. No hemorrhage. No edema. There are mild periventricular and subcortical lucencies consistent with chronic microvascular ischemic changes. Ventricles: Normal. No ventriculomegaly. Bones/joints: Left frontal craniotomy. Sinuses: Visualized sinuses are unremarkable. No fluid levels. Mastoid air cells: Visualized mastoid air cells are well aerated. Soft tissues: Unremarkable. IMPRESSION: No acute intracranial abnormality. Chronic microvascular ischemic changes. Electronically signed by: Josh Victor On 11/22/2019 21:17:52 PM
[2019-11-22 22:39] VITALS: O2SAT 99
[2019-11-22] MEDS ORDERED: QUET50TA48 PO (23:14)
[2019-11-22] MEDS ORDERED: QUET300T53 PO (23:14)
[2019-11-22] MEDS ORDERED: LAMO200T3 PO (23:14)
[2019-11-22] MEDS ORDERED: BUSP30TA PO (23:14)
[2019-11-22] MEDS ORDERED: MECLIZINE 25 MG TABLET PO PRN (23:15)
--- NOTE | 2019-11-23 00:03 | REPVR ---
PROCEDURE INFORMATION: Exam: MR Head Without Contrast Exam date and time: 11/22/2019 11:33 PM Age: 59 years old Clinical indication: Dizziness; Prior surgery; Surgery date: 6+ months; Surgery type: Colloid cyst removed; Additional info: Dizziness, R/O CVA TECHNIQUE: Imaging protocol: MR of the head without contrast. COMPARISON: MRI-Brain without Contrast 08/25/2013 8:09 AM FINDINGS: Brain: Old postsurgical changes in the left frontal lobe. No acute infarct. Ventricles: Normal. No ventriculomegaly. Bones/joints: Unremarkable. Soft tissues: Unremarkable. Sinuses: Normal as visualized. No acute sinusitis. Mastoid air cells: Normal as visualized. No mastoid effusion. Orbits: Unremarkable. Other findings: No hemorrhage. IMPRESSION: No acute intracranial abnormality. Electronically signed by: Josh Victor On 11/23/2019 00:02:27 AM
--- NOTE | 2019-11-23 00:03 | REPVR ---
PROCEDURE INFORMATION: Exam: MR Angiogram Head Without Contrast, Arteries Exam date and time: 11/22/2019 11:33 PM Age: 59 years old Clinical indication: Vertigo; Prior surgery; Surgery date: 6+ months; Surgery type: Colloid cyst removed; Additional info: Dizziness, R/O CVA TECHNIQUE: Imaging protocol: MR angiogram head without contrast. Exam focused on the arteries. COMPARISON: MRI-Brain without Contrast 08/25/2013 8:09 AM FINDINGS: Right internal carotid artery: Intracranial segment is patent with no significant stenosis. No aneurysm. Right anterior cerebral artery: No occlusion or significant stenosis. No aneurysm. Right middle cerebral artery: No occlusion or significant stenosis. No aneurysm. Right posterior cerebral artery: No occlusion or significant stenosis. No aneurysm. Right vertebral artery: No occlusion or significant stenosis. No aneurysm. Left internal carotid artery: Intracranial segment is patent with no significant stenosis. No aneurysm. Left anterior cerebral artery: No occlusion or significant stenosis. No aneurysm. Left middle cerebral artery: No occlusion or significant stenosis. No aneurysm. Left posterior cerebral artery: No occlusion or significant stenosis. No aneurysm. Left vertebral artery: No occlusion or significant stenosis. No aneurysm. Basilar artery: No occlusion or significant stenosis. No aneurysm. IMPRESSION: No acute abnormality. Electronically signed by: Josh Victor On 11/23/2019 00:03:36 AM
[2019-11-23] MEDS ORDERED: RAMELTEON 8 MG TAB (ROZEREM) PO PRN (00:30)
--- NOTE | 2019-11-23 01:15 | HPEPDOC ---
[facility] Medical History & Physical Date of Admission Nov 22, 2019 Date of Service: Nov 23, 2019 Primary Care Physician: Hossein Quinn M.D. Attending Physician: SWEEITE CR MD History and Physical PRIMARY CARE PROVIDER: Dr. Quinn ATTENDING: Dr. Sweetie Cr CHIEF COMPLAINT: dizziness HISTORY OF PRESENT ILLNESS: Patient is a 59 year old female presenting with chief complaint of dizziness. Patient states she woke up this morning and felt so dizzy that she was unable to move or get out of bed. She was hopeful that it would resolve on its own and although it did improve slightly did not totally resolve. She called EMS at approximately 1800 and was brought to the emergency department. While en route she vomited 1. Her initial lab work was unremarkable and she was worked up for a possible stroke. She was able to ambulate with help to the bathroom however she was very unsteady on her feet and continued to complain of dizziness. She did admit that the meclizine given in the emergency department did help with her vertiginous symptoms. On attempted ambulation in the ED, patient was reported to be unsteady on her feet and she reported needing to hold on to the wall as she felt she may fall over. On review of systems, she does admit to having fevers/chills 2 days prior that have since gone away. She currently admits to a headache as well as mild nausea, but otherwise denies any other symptoms. PAST MEDICAL HISTORY: Bipolar disorder with multiple psychiatric hospitalizations Migraine headache Degenerative disc disease Ovarian cysts Type IIB hyperlipidemia Obesity Osteopenia Vitamin D deficiency History of recurrent UTI Major depressive disorder asymptomatic nephrolithiasis Impaired fasting glucose PAST SURGICAL HISTORY: BNUNY/BSO Craniotomy with excision of colloid cyst (12/1994), repeat excision 11/2009 at [facility] Appendectomy Tonsillectomy Adenoidectomy Cholecystectomy SOCIAL HISTORY: Denies alcohol use, denies use of tobacco products, denies any marijuana, heroin, cocaine, or PCP use. 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 No Pets at home. Occupational exposures? None. No sick contacts. FAMILY HISTORY: Father at 75 years old of ACS Mother alive with hypertension Siblings with hypertension ALLERGIES: Please see below. REVIEW OF SYSTEMS: GENERAL: Denies fevers, chills, recent unexpected weight change, night sweats, hemoptysis HEENT: Denies vision changes, hearing loss, sore throat. Admits to dizziness, headache CARDIOVASCULAR: Denies chest pain, palpitations, orthopnea RESPIRATORY: Denies shortness of breath, wheezing, cough GASTROINTESTINAL: denies nausea, vomiting, abdominal pain, constipation, diarrhea, bloody stool GENITOURINARY: Denies dysuria,urinary urgency, hematuria. MUSCULOSKELETAL: Denies muscle/joint pain, weakness, stiffness NEUROLOGICAL: Denies any numbness/tingling, focal weakness, or syncope HOME MEDICATIONS: Please see below. PHYSICAL EXAMINATION: Vitals: (see below) General: anxious appearing female, laying comfortably in bed, in no acute distress. HEENT: Normocephalic, atraumatic. EOMI. No nystagmus. No scleral icterus. Moist mucous membranes. EACs clear, TMs normal bilaterally. No pharyngeal erythema or uvular deviation. Neck: No JVD, lymphadenopathy, or thyromegaly. Cardiac: RRR, Normal S1 and S2, No murmurs, gallops, rubs. Pulm: Clear to auscultation b/l. Symmetric thorax. No wheezing, crackles, rhonchi Abd: Bowel Sounds present. Abdomen is soft, non-tender, non-distended. No guarding, rebound tenderness, or rigidity. Ext: No edema or cyanosis Neuro: Strength +5/5 BUE and BLE. CN 2-12 intact. F to N intact Negative pronator drift. Negative Babinski. Sensation to fine touch intact in BLE and BUE. LABORATORY DATA: See below. IMAGIN11/23/2019 CT head: Impression: Negative 11/23/2019 MRI: Impression: Negative 11/23/2019 MRA: Impression: Negative MICROBIOLOGY: Please see below. ASSESSMENT/PLAN: #. Gait Ataxia -CT, MRI/MRA negative for any acute/concerning findings. Consider neurology consult in AM if continued concern for TIA although given the continuous nature and lack of MRI/MRI findings my suspicion for this is low. Patient's sudden onse t of symptoms suggest possible BPPV vs vestibular neuritis so we will treat for same. Patient also exhibited slow, shuffling gait during a walk test in the ED, may consider possible parkinsonian side effects from her anti-psychotics, however no other parkinsonian signs exhibited on exam. Patient's symptoms improved with Antivert in the emergency department, will order this every 6 hours as needed, zofran for nausea. - PT/OT eval. #. Type IIB hyperlipidemia -We'll restart patient on statin as she has self discontinued and reorder lipid panel #. Bipolar depression - Continue Seroquel 350 mg PO QHS - Continue Lamictal #. Generalized anxiety disorder - Continue Buspar. #. Physical deconditioning - PT/OT consulted #. Obesity - Complicating care - Ordering A1C -DVT prophy: Teds/sequential, heparin Vital Signs Vital Signs Date Time Temp Pulse Resp B/P (MAP) Pulse Ox O2 Delivery O2 Flow Rate FiO2 11/22/19 23:00 94 169/82 (111) 97 11/22/19 22:39 Room Air 11/22/19 19:13 97.7 18 Laboratory Data Labs 24H Laboratory Tests 2 11/22/19 19:49: Immature Granulocyte % (Auto) 1.2, Neutrophils (%) (Auto) 77.3H, Lymphocytes (%) (Auto) 11.4L, Monocytes (%) (Auto) 5.7H, Eosinophils (%) (Auto) 3.7H, Basophils (%) (Auto) 0.7, Neutrophils # (Auto) 6.9, Lymphocytes # (Auto) 1.0L, Monocytes # (Auto) 0.5, Eosinophils # (Auto) 0.3, Basophils # (Auto) 0.1, Nucleated Red Blood Cells % (auto) 0.0, Anion Gap 8, Glomerular Filtration Rate > 60.0, Calcium Level 8.0L, Total Bilirubin 0.2, Direct Bilirubin 0.1, Aspartate Amino Transf (AST/SGOT) 19, Alanine Aminotransferase (ALT/SGPT) 25, Alkaline Phosphatase 85, Total Creatine Kinase 30, Creatine Kinase MB < 1.0, Creatine Kinase MB Relative Index 3.33, Troponin I < 0.02, Total Protein 6.3L, Albumin 3.2, Albumin/Globulin Ratio 1.03, Thyroid Stimulating Hormone (TSH) 0.580 11/22/19 20:10: Bedside Glucose (Misc Panel) 105 CBC/BMP Laboratory Tests 11/22/19 19:49 Home Medications Scheduled Buspirone HCl (Buspirone HCl) 30 Mg Tablet, 30 MG PO BID Lamotrigine (Lamotrigine) 200 Mg Tablet, 400 MG PO DAILY Quetiapine Fumarate (Quetiapine Fumarate ER) 50 Mg Tab.er.24h, 50 MG PO QHS TAKES WITH 300MG FOR 350MG TOTAL Quetiapine Fumarate (Quetiapine Fumarate ER) 300 Mg Tab.er.24h, 300 MG PO QHS TAKES WITH 50MG FOR 350MG TOTAL Allergies Coded Allergies: No Known Allergies (Unverified , 11/22/19) A-FIB/CHADSVASC A-FIB History Current/History of A-Fib/PAF?: No GME ATTESTATION GME ATTESTATION My faculty preceptor for this patient encounter was physically present during the encounter and was fully available. All aspects of the patient interview, examination, medical decision making process, and medical care plan development were reviewed and approved by the faculty preceptor. The faculty preceptor is aware and concurs with the plan as stated in the body of this note and will attest to such by his/her cosignature. ATTENDING NOTE TIME OF SERVICE 1220AM I reviewed 's H&P and agree with the findings as documented. ERMA POWERS DO Nov 23, 2019 01:15 SWEETIE CR MD Nov 23, 2019 04:21
[2019-11-23] MEDS ORDERED: ONDANSETRON 4 MG ORAL DISINTEGRATING TAB (Q0162 PER 1MG) PO PRN (01:30)
[2019-11-23] MEDS: QUEtiapine FUMERATE XR 50 MG TABER PO SCH ×2 (02:06→20:19)
[2019-11-23] MEDS: QUEtiapine 300 MG XR TABLET(SEROQUEL XR) PO SCH ×2 (02:06→20:19)
[2019-11-23] MEDS: ATORVASTATIN 20 MG TAB PO SCH ×2 (02:07→20:20)
[2019-11-23] MEDS: busPIRone 10 MG TAB PO SCH ×3 (02:07→20:20)
[2019-11-23] MEDS: ACETAMINOPHEN TAB 650MG DOSE (2X325MG) PO PRN ×2 (02:08→17:08)
[2019-11-23] MEDS: HEPARIN SOD (PORCINE) 5000 UNITS/ML VIAL (J1644 PER 1000UNITS) SC SCH ×3 (05:28→22:42)
[2019-11-23 06:32] LABS: CHOLESTEROL RISK RATIO 3.865 (<5)
[2019-11-23 07:35] LABS: HEMOGLOBIN A1c 5.4 %
--- NOTE | 2019-11-23 08:21 | REP ---
Portable chest x-ray: Single view. History: Subjective fever and chills. Altered mental status. Comparison chest x-ray: August 26, 2016. Findings: Right hemidiaphragm is somewhat elevated. There is linear discoid atelectasis in both bases. No definite infiltrate. Heart is not felt to be enlarged. EKG monitoring electrodes are seen Impression: Bibasilar plate-like atelectasis. Somewhat elevated right hemidiaphragm. Otherwise no acute disease. Electronically Signed by Rey Mims MD 11/23/2019 08:11 A
[2019-11-23] MEDS: lamoTRIgine 100MG TAB PO SCH (08:54)
[2019-11-23 14:00] VITALS: BP 117/64
[2019-11-23 20:00] VITALS: BP 131/68
--- NOTE | 2019-11-23 22:31 | IPNPDOC ---
Text Note Date of Service The patient was seen on 11/23/19. NOTE SUBJECTIVE: Mayco feels better today. dizziness and spinning sensation is much less and is happening only while walking not when she is laying down in bed which is an improvement from yesterday. No nausea or vomiting. Has been able to have normal meals. Continues to have disbalance and gait issues. PHYSICAL EXAM: Vitals: (see below) General: anxious appearing female, laying comfortably in bed, in no acute distress. HEENT: Normocephalic, atraumatic. EOMI. horizontal nystagus noted. No scleral icterus. Moist mucous membranes. EACs clear, TMs normal bilaterally. No pharyngeal erythema or uvular deviation. Neck: No JVD, lymphadenopathy, or thyromegaly. Cardiac: RRR, Normal S1 and S2, No murmurs, gallops, rubs. Pulm: Clear to auscultation b/l. Symmetric thorax. No wheezing, crackles, rhonchi Abd: Bowel Sounds present. Abdomen is soft, non-tender, non-distended. No guarding, rebound tenderness, or rigidity. Ext: No edema or cyanosis Neuro: Strength +5/5 BUE and BLE. CN 2-12 intact. F to N intact Negative pron ator drift. Negative Babinski. Sensation to fine touch intact in BLE and BUE Labs and Radiology : reviewed. ASSESSMENT/PLAN: Patient is a 59 year old female presenting with chief complaint of dizziness. She hs a past medical history of Bipolar disorder with multiple psychiatric hospitalizations, Craniotomy with excision of colloid cyst (12/1994), repeat excision 11/2009 at [facility], Migraine headache, Degenerative disc disease, hyperlipidemia, Obesity, nephrolithiasis, Depression, osteopenia, vit D deficiency, impaired fasting glucose. Patient states she woke up this morning and felt so dizzy that she was unable to move or get out of bed. She was hopeful that it would resolve on its own and although it did improve slightly did not totally resolve. She called EMS at approximately 1800 and was brought to the emergency department. While en route she vomited 1. Her initial lab work was unremarkable and she was worked up for a possible stroke. She was able to ambulate with help to the bathroom however she was very unsteady on her feet and continued to complain of dizziness. She did admit that the meclizine given in the emergency department did help with her vertiginous symptoms. On attempted ambulation in the ED, patient was reported to be unsteady on her feet and she reported needing to hold on to the wall as she felt she may fall over. She was admitted for Dizziness and vertigo Dizziness and vertigo possibly due to BPPV or vestibular neuronitis. causing Gait Ataxia CT, MRI/MRA negative for any acute/concerning findings. Patient also exhibited slow, shuffling gait during a walk test in the ED, may consider possible parkinsonian side effects from her anti-psychotics, however no other parkinsonian signs exhibited on exam. PT eval for vestibular function noted. Imboden haalpike positive on the right for left. left could not be done due to neck issues. Type IIB hyperlipidemia We'll restart patient on statin as she has self discontinued and reorder lipid panel Bipolar depression - Continue Seroquel 350 mg PO QHS - Continue Lamictal Generalized anxiety disorder - Continue Buspar. Physical deconditioning - PT/OT consulted Obesity - Complicating care - Ordering A1C -DVT prophy: Teds/sequential, heparin VS,Fishbone, I+O VS, Fishbone, I+O Vital Signs Date Time Temp Pulse Resp B/P (MAP) Pulse Ox O2 Delivery O2 Flow Rate FiO2 11/23/19 20:00 98.3 82 18 131/68 (89) 96 Room Air I&O- Last 24 Hours up to 6 AM 11/23/19 06:00 Intake Total 2000 ml Output Total 200 ml Balance 1800 ml ISAIAH SOLORZANO MD Nov 23, 2019 22:31
[2019-11-24 06:00] VITALS: BP 138/80
[2019-11-24 06:13] LABS: BASO % 0.6 % (0.0-1.0); EOS # 0.4 10^3/uL (0.0-0.5); EOS % 7.8 % (0.0-3.0); HEMATOCRIT 37.2 % (36.0-47.0); HEMOGLOBIN 11.8 g/dl (12.0-15.5); LYMPH # 1.8 10^3/uL (1.5-5.0); LYMPH % 34.3 % (24.0-44.0); MEAN CORPUSCULAR HGB CONC 31.7 g/dl (32.0-36.5); MEAN CORPUSCULAR VOLUME 88.4 fl (80.0-96.0); MONO # 0.5 10^3/uL (0.0-0.8); MONO % 8.5 % (0.0-5.0); NEUTROPHILS # 2.5 10^3/uL (1.5-8.5); PLATELET COUNT, AUTOMATED 222 10^3/uL (150-450); RED BLOOD COUNT 4.21 10^6/uL (4.00-5.40); WHITE BLOOD COUNT 5.3 10^3/uL (4.0-10.0)
[2019-11-24 06:32] LABS: BLOOD UREA NITROGEN 11 MG/DL (7-18); CALCIUM LEVEL 8.2 MG/DL (8.5-10.1); CARBON DIOXIDE LEVEL 27 MEQ/L (21-32); CHLORIDE LEVEL 111 MEQ/L (98-107); CREATININE FOR GFR 0.74 MG/DL (0.55-1.30); GLOMERULAR FILTRATION RATE > 60.0 (>51); GLUCOSE, FASTING 93 MG/DL (70-100); POTASSIUM SERUM 3.5 MEQ/L (3.5-5.1); SODIUM LEVEL 144 MEQ/L (136-145)
[2019-11-24] MEDS: HEPARIN SOD (PORCINE) 5000 UNITS/ML VIAL (J1644 PER 1000UNITS) SC SCH ×3 (06:36→20:14)
[2019-11-24] MEDS: busPIRone 10 MG TAB PO SCH ×2 (08:31→20:15)
[2019-11-24] MEDS: lamoTRIgine 100MG TAB PO SCH (08:32)
--- NOTE | 2019-11-24 12:43 | IPNPDOC ---
Text Note Date of Service The patient was seen on 11/24/19. NOTE SUBJECTIVE: Patient feels better today. dizziness and spinning sensation is much less and is happening only while walking not when she is laying down in bed which is an improvement, No nausea or vomiting. Has been able to have normal meals. Continues to have disbalance and gait issues but getting better. PT working with her . As per them improvement is slower than expected PHYSICAL EXAM: Vitals: (see below) General: anxious appearing female, laying comfortably in bed, in no acute distress. HEENT: Normocephalic, atraumatic. EOMI. horizontal nystagus noted. No scleral icterus. Moist mucous membranes. EACs clear, TMs normal bilaterally. No pharyngeal erythema or uvular deviation. Neck: No JVD, lymphadenopathy, or thyromegaly. Cardiac: RRR, Normal S1 and S2, No murmurs, gallops, rubs. Pulm: Clear to auscultation b/l. Symmetric thorax. No wheezing, crackles, rhon chi Abd: Bowel Sounds present. Abdomen is soft, non-tender, non-distended. No guarding, rebound tenderness, or rigidity. Ext: No edema or cyanosis Neuro: Strength +5/5 BUE and BLE. CN 2-12 intact. F to N intact Negative pronator drift. Negative Babinski. Sensation to fine touch intact in BLE and BUE Labs and Radiology : reviewed. ASSESSMENT/PLAN: Patient is a 59 year old female presenting with chief complaint of dizziness. She hs a past medical history of Bipolar disorder with multiple p sychiatric hospitalizations, Craniotomy with excision of colloid cyst (12/1994), repeat excision 11/2009 at [facility], Migraine headache, Degenerative disc disease, hyperlipidemia, Obesity, nephrolithiasis, Depression, osteopenia, vit D deficiency, impaired fasting glucose. Patient states she woke up this morning and felt so dizzy that she was unable to move or get out of bed. She was hopeful that it would resolve on its own and although it did improve slightly did not totally resolve. She called EMS at approximately 1800 and was brought to the emergency department. While en route she vomited 1. Her initial lab work was unremarkable and she was worked up for a possible stroke. She was able to ambulate with help to the bathroom however she was very unsteady on her feet and continued to complain of dizziness. She did admit that the meclizine given in the emergency department did help with her vertiginous symptoms. On attempted ambulation in the ED, patient was reported to be unsteady on her feet and she reported needing to hold on to the wall as she felt she may fall over. She was admitted for Dizziness and vertigo Dizziness and vertigo Due to vestibular neuronitis. No BPPV as per testing. causing Gait Ataxia CT, MRI/MRA negative for any acute/concerning findings. Patient also exhibited slow, shuffling gait during a walk test in the ED, may consider possible parkinsonian side effects from her anti-psychotics, however no other parkinsonian signs exhibited on exam. Type IIB hyperlipidemia We'll restart patient on statin as she has self discontinued and reorder lipid panel Bipolar depression Continue Seroquel 350 mg PO QHS Continue Lamictal Generalized anxiety disorder Continue Buspar. Physical deconditioning PT/OT consulted Obesity Complicating care DVT prophy: Teds/sequential, heparin Dispo: Home Vs rehab depending on her improvement of gait and stability VS,Jose A, I+O VS, Jose A, I+O Laboratory Tests 11/24/19 05:21 Vital Signs Date Time Temp Pulse Resp B/P (MAP) Pulse Ox O2 Delivery O2 Flow Rate FiO2 11/24/19 06:00 97.8 73 20 138/80 (99) 96 Room Air I&O- Last 24 Hours up to 6 AM 11/24/19 06:00 Intake Total 1190 ml Output Total 300 ml Balance 890 ml ISAIAH SOLORZANO MD Nov 24, 2019 12:43
[2019-11-24 14:00] VITALS: BP 135/76
[2019-11-24] MEDS: QUEtiapine FUMERATE XR 50 MG TABER PO SCH (20:14)
[2019-11-24] MEDS: QUEtiapine 300 MG XR TABLET(SEROQUEL XR) PO SCH (20:14)
[2019-11-24] MEDS: ATORVASTATIN 20 MG TAB PO SCH (20:15)
[2019-11-24 22:00] VITALS: BP 164/92
[2019-11-25] MEDS: HEPARIN SOD (PORCINE) 5000 UNITS/ML VIAL (J1644 PER 1000UNITS) SC SCH ×3 (05:56→21:07)
[2019-11-25 06:00] VITALS: BP 128/71
[2019-11-25 06:51] LABS: BASO % 0.5 % (0.0-1.0); EOS # 0.5 10^3/uL (0.0-0.5); EOS % 7.1 % (0.0-3.0); HEMATOCRIT 37.4 % (36.0-47.0); HEMOGLOBIN 12.3 g/dl (12.0-15.5); LYMPH # 1.7 10^3/uL (1.5-5.0); LYMPH % 26.8 % (24.0-44.0); MEAN CORPUSCULAR HEMOGLOBIN 28.6 pg (27.0-33.0); MEAN CORPUSCULAR HGB CONC 32.9 g/dl (32.0-36.5); MONO # 0.5 10^3/uL (0.0-0.8); NEUTROPHILS # 3.7 10^3/uL (1.5-8.5); PLATELET COUNT, AUTOMATED 235 10^3/uL (150-450); WHITE BLOOD COUNT 6.5 10^3/uL (4.0-10.0)
[2019-11-25 07:17] LABS: BLOOD UREA NITROGEN 8 MG/DL (7-18); CALCIUM LEVEL 8.3 MG/DL (8.5-10.1); CARBON DIOXIDE LEVEL 26 MEQ/L (21-32); CHLORIDE LEVEL 109 MEQ/L (98-107); CREATININE FOR GFR 0.66 MG/DL (0.55-1.30); GLOMERULAR FILTRATION RATE > 60.0 (>51); GLUCOSE, FASTING 90 MG/DL (70-100); POTASSIUM SERUM 3.6 MEQ/L (3.5-5.1); SODIUM LEVEL 140 MEQ/L (136-145)
[2019-11-25] MEDS: busPIRone 10 MG TAB PO SCH ×2 (08:09→21:07)
[2019-11-25] MEDS: lamoTRIgine 100MG TAB PO SCH (08:10)
[2019-11-25 14:00] VITALS: BP 134/81
--- NOTE | 2019-11-25 18:04 | IPNPDOC ---
Text Note Date of Service The patient was seen on 11/25/19. NOTE Subjective: Patient continues to have dizziness, she complains of balance ins tability. Patient denies fever, chills, nausea, vomiting, diarrhea or dysuria Objective: VITAL SIGNS: Please see below. GENERAL: awake, alert, NAD HEENT: NCAT, anicteric sclera, PERRLA NECK: supple, no JVD CARDIOVASCULAR EXAMINATION: NS1S2, regular rate/rhythm RESPIRATORY EXAMINATION: CTA b/l, no wheezes/rales/rhonchi ABDOMINAL EXAMINATION: positive bowel sounds x 4, NT EXTREMITIES: no cyanosis, clubbing, edema SKIN: warm, no rashes. NEUROLOGICAL EXAMINATION: AAO x 3, no motor/sensory deficits PSYCHIATRIC EXAMINATION: calm, normal affect Assessment and plan Patient is 59 years old female with past medical history of bipolar disorder, migraine, craniotomy, with excision of colloid cyst (12/1994), repeat excision 11/2009 at [facility] degenerative disc disease, hyperlipidemia, obesity, nephrolithiasis, depression, osteopenia, vit D deficiency, impaired fasting glucose presented to the hospital with dizziness. Imaging study was negative for stroke. Dizziness Patient denied any spinning around sensation Also patient complained of unstable gait Imaging study was negative for stroke There is concern for vestibular neuropathy Differential diagnosis includes benign positional vertigo, labyrinthitis, central vertigo I will start meclizine and prednisone 20 mg daily PT/OT Hyperlipidemia Continue statin Bipolar depression Continue Seroquel 350 mg PO QHS Continue Lamictal Generalized anxiety disorder Continue Buspar. Physical deconditioning PT/OT consulted Obesity Complicating care VS,Katiee, I+O VS, Fishbone, I+O Laboratory Tests 11/25/19 06:36 Vital Signs Date Time Temp Pulse Resp B/P (MAP) Pulse Ox O2 Delivery O2 Flow Rate FiO2 11/25/19 14:00 97.5 84 18 134/81 (98) 93 Room Air I&O- Last 24 Hours up to 6 AM 11/25/19 06:00 Intake Total 1010 ml Balance 1010 ml ANGELO HOFF DO Nov 25, 2019 18:04
[2019-11-25] MEDS: predniSONE 20 MG TAB PO SCH (18:31)
[2019-11-25] MEDS ORDERED: POTASSIUM CHLORIDE 10 MEQ SR TABLET PO ONE (19:00)
[2019-11-25] MEDS: QUEtiapine 300 MG XR TABLET(SEROQUEL XR) PO SCH (21:06)
[2019-11-25] MEDS: QUEtiapine FUMERATE XR 50 MG TABER PO SCH (21:06)
[2019-11-25] MEDS: ATORVASTATIN 20 MG TAB PO SCH (21:07)
[2019-11-25] MEDS: MECLIZINE 12.5 MG TAB PO SCH (21:07)
[2019-11-25 22:00] VITALS: BP 154/89
[2019-11-26] MEDS: HEPARIN SOD (PORCINE) 5000 UNITS/ML VIAL (J1644 PER 1000UNITS) SC SCH ×3 (05:37→20:24)
[2019-11-26 06:00] VITALS: BP 151/84
[2019-11-26 06:06] LABS: BASO % 0.3 % (0.0-1.0); EOS # 0.1 10^3/uL (0.0-0.5); EOS % 0.9 % (0.0-3.0); HEMATOCRIT 39.3 % (36.0-47.0); HEMOGLOBIN 12.9 g/dl (12.0-15.5); LYMPH # 1.1 10^3/uL (1.5-5.0); LYMPH % 15.6 % (24.0-44.0); MEAN CORPUSCULAR HEMOGLOBIN 28.4 pg (27.0-33.0); MEAN CORPUSCULAR HGB CONC 32.8 g/dl (32.0-36.5); MEAN CORPUSCULAR VOLUME 86.6 fl (80.0-96.0); MONO # 0.2 10^3/uL (0.0-0.8); MONO % 2.4 % (0.0-5.0); NEUTROPHILS # 5.6 10^3/uL (1.5-8.5); NEUTROPHILS % 79.4 % (36.0-66.0); PLATELET COUNT, AUTOMATED 296 10^3/uL (150-450); RED BLOOD COUNT 4.54 10^6/uL (4.00-5.40)
[2019-11-26 06:35] LABS: BLOOD UREA NITROGEN 7 MG/DL (7-18); CALCIUM LEVEL 8.9 MG/DL (8.5-10.1); CARBON DIOXIDE LEVEL 24 MEQ/L (21-32); CHLORIDE LEVEL 109 MEQ/L (98-107); CREATININE FOR GFR 0.71 MG/DL (0.55-1.30); GLOMERULAR FILTRATION RATE > 60.0 (>51); GLUCOSE, FASTING 136 MG/DL (70-100); POTASSIUM SERUM 4.6 MEQ/L (3.5-5.1); SODIUM LEVEL 140 MEQ/L (136-145)
[2019-11-26] MEDS: busPIRone 10 MG TAB PO SCH ×2 (09:19→20:24)
[2019-11-26] MEDS: lamoTRIgine 100MG TAB PO SCH (09:19)
[2019-11-26] MEDS: predniSONE 20 MG TAB PO SCH (09:20)
[2019-11-26] MEDS: MECLIZINE 12.5 MG TAB PO SCH ×3 (09:20→20:24)
--- NOTE | 2019-11-26 13:16 | IPNPDOC ---
Text Note Date of Service The patient was seen on 11/26/19. NOTE Subjective: Patient's dizziness and balance markedly improved today. Patient was able to walk without unsteadiness. Patient denies fever, chills, nausea, vomiting, diarrhea or dysuria Objective: VITAL SIGNS: Please see below. GENERAL: awake, alert, NAD HEENT: NCAT, anicteric sclera, PERRLA NECK: supple, no JVD CARDIOVASCULAR EXAMINATION: NS1S2, regular rate/rhythm RESPIRATORY EXAMINATION: CTA b/l, no wheezes/rales/rhonchi ABDOMINAL EXAMINATION: positive bowel sounds x 4, NT EXTREMITIES: no cyanosis, clubbing, edema SKIN: warm, no rashes. NEUROLOGICAL EXAMINATION: AAO x 3, no motor/sensory deficits PSYCHIATRIC EXAMINATION: calm, normal affect Assessment and plan Patient is 59 years old female with past medical history of bipolar disorder, migraine, craniotomy, with excision of colloid cyst (12/1994), repeat excision 11/2009 at [facility] [place], degenerative disc disease, hyperlipidemia, obesity, nephrolithiasis, depression, osteopenia, vit D deficiency, impaired fasting glucose presented to the hospital with dizziness. Imaging study was negative for stroke. Dizziness Resolved Patient denied any spinning around sensation Also patient complained of unstable gait Imaging study was negative for stroke There is concern for vestibular neuropathy Differential diagnosis includes benign positional vertigo, labyrinthitis, central vertigo I started meclizine and prednisone 20 mg daily. Markedly improved after treatment Await PT/OT clearance Hyperlipidemia Continue statin Bipolar depression Continue Seroquel 350 mg PO QHS Continue Lamictal Generalized anxiety disorder Continue Buspar. Physical deconditioning PT/OT consulted Obesity Complicating care VS,Katiee, I+O VS, Fishbone, I+O Laboratory Tests 11/26/19 05:52 Vital Signs Date Time Temp Pulse Resp B/P (MAP) Pulse Ox O2 Delivery O2 Flow Rate FiO2 11/26/19 06:00 98.0 77 18 151/84 (106) 96 Room Air I&O- Last 24 Hours up to 6 AM 11/26/19 06:00 Intake Total 1650 ml Output Total 1900 ml Balance -250 ml ANGELO HOFF DO Nov 26, 2019 13:16
[2019-11-26 14:00] VITALS: BP 156/89
[2019-11-26] MEDS: ATORVASTATIN 20 MG TAB PO SCH (20:23)
[2019-11-26] MEDS: QUEtiapine FUMERATE XR 50 MG TABER PO SCH (20:23)
[2019-11-26] MEDS: QUEtiapine 300 MG XR TABLET(SEROQUEL XR) PO SCH (20:23)
[2019-11-27] MEDS: HEPARIN SOD (PORCINE) 5000 UNITS/ML VIAL (J1644 PER 1000UNITS) SC SCH (05:54)
[2019-11-27 06:00] VITALS: BP 138/74
[2019-11-27 07:15] LABS: BASO # 0.1 10^3/uL (0.0-0.2); BASO % 0.6 % (0.0-1.0); EOS # 0.1 10^3/uL (0.0-0.5); EOS % 1.5 % (0.0-3.0); HEMOGLOBIN 12.9 g/dl (12.0-15.5); LYMPH # 2.2 10^3/uL (1.5-5.0); LYMPH % 25.8 % (24.0-44.0); MEAN CORPUSCULAR HEMOGLOBIN 28.7 pg (27.0-33.0); MEAN CORPUSCULAR HGB CONC 33.1 g/dl (32.0-36.5); MEAN CORPUSCULAR VOLUME 86.9 fl (80.0-96.0); MONO # 0.6 10^3/uL (0.0-0.8); NEUTROPHILS # 5.4 10^3/uL (1.5-8.5); NEUTROPHILS % 63.1 % (36.0-66.0); PLATELET COUNT, AUTOMATED 270 10^3/uL (150-450); RED BLOOD COUNT 4.49 10^6/uL (4.00-5.40); WHITE BLOOD COUNT 8.5 10^3/uL (4.0-10.0)
[2019-11-27 07:22] LABS: BLOOD UREA NITROGEN 8 MG/DL (7-18); CALCIUM LEVEL 8.8 MG/DL (8.5-10.1); CARBON DIOXIDE LEVEL 26 MEQ/L (21-32); CHLORIDE LEVEL 109 MEQ/L (98-107); CREATININE FOR GFR 0.75 MG/DL (0.55-1.30); GLOMERULAR FILTRATION RATE > 60.0 (>51); GLUCOSE, FASTING 91 MG/DL (70-100); POTASSIUM SERUM 3.4 MEQ/L (3.5-5.1); SODIUM LEVEL 142 MEQ/L (136-145)
[2019-11-27] MEDS ORDERED: POTASSIUM CHLORIDE 10 MEQ SR TABLET PO ONE (10:00)
[2019-11-27] MEDS: predniSONE 20 MG TAB PO SCH (10:02)
[2019-11-27] MEDS: busPIRone 10 MG TAB PO SCH (10:02)
[2019-11-27] MEDS: lamoTRIgine 100MG TAB PO SCH (10:02)
[2019-11-27] MEDS: MECLIZINE 12.5 MG TAB PO SCH (10:07)
[2019-11-27] MEDS ORDERED: MECL12.589 PO (10:44)
[2019-11-27] MEDS ORDERED: ATOR1TAB21 PO (10:44)
[2019-11-27] MEDS ORDERED: PRED20TA PO (10:44)
--- NOTE | 2019-11-27 14:21 | DS.PDOC ---
Discharge Summary General Date of Admission Nov 22, 2019 at 23:01 Date of Discharge 11/27/19 Discharge Summary PROCEDURES PERFORMED DURING STAY: [None]. ADMITTING DIAGNOSES: Dizziness Hyperlipidemia Bipolar depression Generalized anxiety disorder vestibular neuritis Obesity Physical deconditioning DISCHARGE DIAGNOSES: Dizziness Hyperlipidemia Bipolar depression Generalized anxiety disorder vestibular neuritis Obesity Physical deconditioning COMPLICATIONS/CHIEF COMPLAINT: Ataxia. HISTORY OF PRESENT ILLNESS: Patient is 59 years old female with past medical history of bipolar disorder, migraine, craniotomy, with excision of colloid cyst (12/1994), [facility], degenerative disc disease, hyperlipidemia, obesity, nephrolithiasis, depression, osteopenia, vit D deficiency, impaired fasting glucose presented to the hospital with dizziness. Imaging study was negative for stroke. HOSPITAL COURSE: During hospital stay following issue addressed Dizziness Resolved Patient denied any spinning around sensation Also patient complained of unstable gait Imaging study was negative for stroke There is concern for vestibular neuropathy Differential diagnosis includes benign positional vertigo, labyrinthitis, central vertigo I started meclizine and prednisone 20 mg daily. Markedly improved after treatment Hyperlipidemia Continue statin Bipolar depression Continue Seroquel 350 mg PO QHS Continue Lamictal Generalized anxiety disorder Continue Buspar. Physical deconditioning PT/OT consulted Obesity Complicating care DISCHARGE MEDICATIONS: Please see below. ALLERGIES: Please see below. PHYSICAL EXAMINATION ON DISCHARGE: VITAL SIGNS: Please see below. GENERAL: awake, alert, NAD HEENT: NCAT, anicteric sclera, PERRLA NECK: supple, no JVD CARDIOVASCULAR EXAMINATION: NS1S2, regular rate/rhythm RESPIRATORY EXAMINATION: CTA b/l, no wheezes/rales/rhonchi ABDOMINAL EXAMINATION: positive bowel sounds x 4, NT EXTREMITIES: no cyanosis, clubbing, edema SKIN: warm, no rashes. NEUROLOGICAL EXAMINATION: AAO x 3, no motor/sensory deficits PSYCHIATRIC EXAMINATION: calm, normal affect LABORATORY DATA: Please see below. IMAGING: PROCEDURE INFORMATION: Exam: MR Head Without Contrast Exam date and time: 11/22/2019 11:33 PM Age: 59 years old Clinical indication: Dizziness; Prior surgery; Surgery date: 6+ months; Surgery type: Colloid cyst removed; Additional info: Dizziness, R/O CVA TECHNIQUE: Imaging protocol: MR of the head without contrast. COMPARISON: MRI-Brain without Contrast 08/25/2013 8:09 AM FINDINGS: Brain: Old postsurgical changes in the left frontal lobe. No acute infarct. Ventricles: Normal. No ventriculomegaly. Bones/joints: Unremarkable. Soft tissues: Unremarkable. Sinuses: Normal as visualized. No acute sinusitis. Mastoid air cells: Normal as visualized. No mastoid effusion. Orbits: Unremarkable. Other findings: No hemorrhage. IMPRESSION: No acute intracranial abnormality. Electronically signed by: Johs Victor On 11/23/2019 00:02:27 AM DD: JOSH Torres RAI, DO 11/22/19 2333 DT: KASEY 11/23/19 0002 DS: MADISON 11/23/19 0002 PROGNOSIS: Fair ACTIVITY: [As tolerated]. DIET: Cardiac DISCHARGE PLAN: Home DISPOSITION: 01 Home, Self-Care. DISCHARGE INSTRUCTIONS: Continue taking prescribed medications ITEMS TO FOLLOWUP ON ON OUTPATIENT: Follow-up with PCP DISCHARGE CONDITION: [Stable]. TIME SPENT ON DISCHARGE: Greater than 20 minutes. Vital Signs/I&Os Vital Signs Date Time Temp Pulse Resp B/P (MAP) Pulse Ox O2 Delivery O2 Flow Rate FiO2 11/27/19 06:00 98.1 76 16 138/74 (95) 94 Room Air I&O- Last 24 Hours up to 6 AM 11/27/19 05:59 Intake Total 1500 ml Output Total 1800 ml Balance -300 ml Laboratory Data Labs 24H Laboratory Tests 2 11/27/19 06:39: Immature Granulocyte % (Auto) 2.0, Neutrophils (%) (Auto) 63.1, Lymphocytes (%) (Auto) 25.8, Monocytes (%) (Auto) 7.0H, Eosinophils (%) (Auto) 1.5, Basophils (%) (Auto) 0.6, Neutrophils # (Auto) 5.4, Lymphocytes # (Auto) 2.2, Monocytes # (Auto) 0.6, Eosinophils # (Auto) 0.1, Basophils # (Auto) 0.1, Nucleated Red Blood Cells % (auto) 0.0, Anion Gap 7L, Glomerular Filtration Rate > 60.0, Ca lcium Level 8.8 CBC/BMP Laboratory Tests 11/27/19 06:39 Discharge Medications Scheduled Atorvastatin Calcium (Atorvastatin Calcium) 20 Mg Tablet, 40 MG PO QHS Buspirone HCl (Buspirone HCl) 30 Mg Tablet, 30 MG PO BID, (Reported) Lamotrigine (Lamotrigine) 200 Mg Tablet, 400 MG PO DAILY, (Reported) Meclizine HCl (Meclizine HCl) 12.5 Mg Tablet, 12.5 MG PO TID Prednisone (Prednisone) 20 Mg Tablet, 20 MG PO DAILY Quetiapine Fumarate (Quetiapine Fumarate ER) 50 Mg Tab.er.24h, 50 MG PO QHS, (Reported) TAKES WITH 300MG FOR 350MG TOTAL Quetiapine Fumarate (Quetiapine Fumarate ER) 300 Mg Tab.er.24h, 300 MG PO QHS, (Reported) TAKES WITH 50MG FOR 350MG TOTAL Allergies Coded Allergies: No Known Allergies (Unverified , 11/22/19) ANGELO HOFF DO Nov 27, 2019 14:21
== END 2019-11-27 12:14 | disposition home or self-care (01) | DRG 149 ==
LOC: M ED 20:11 → M ED INP 23:01 → ENRESERVDT 23:31 → ENRESERVTM 23:31 → M MSPAV 11-23 01:20
PROVIDERS: ADMIT Internal Medicine; ATTEND Internal Medicine
DX: H81.20 Vestibular neuronitis, unspecified ear (principal); G43.909 Migraine, unspecified, not intractable, without status migrainosus; E78.49 Other hyperlipidemia; E66.9 Obesity, unspecified; M85.80 Other specified disorders of bone density and structure, unspecified site; F41.1 Generalized anxiety disorder; R27.0 Ataxia, unspecified; E55.9 Vitamin D deficiency, unspecified; F31.9 Bipolar disorder, unspecified; R73.01 Impaired fasting glucose; Z87.442 Personal history of urinary calculi; Z87.440 Personal history of urinary (tract) infections; Z90.49 Acquired absence of other specified parts of digestive tract; Z79.899 Other long term (current) drug therapy; Z68.32 Body mass index [BMI] 32.0-32.9, adult

== ENCOUNTER → 2019-12-07 | Outpatient (REF) | payer OTHER ==
[~2019-12-07] MED LIST changes: +ATOR1TAB21 PO; +BUSP30TA PO; +MECL12.589 PO; +PRED20TA PO; +QUET300T53 PO; +QUET50TA48 PO
[2019-12-07 14:23] LABS: ALBUMIN 3.8 GM/DL (3.2-5.2); ALT/SGPT 26 U/L (12-78); BILIRUBIN,TOTAL 0.6 MG/DL (0.2-1.0); BLOOD UREA NITROGEN 10 MG/DL (7-18); CALCIUM LEVEL 9.2 MG/DL (8.5-10.1); CARBON DIOXIDE LEVEL 27 MEQ/L (21-32); CHLORIDE LEVEL 107 MEQ/L (98-107); CHOLESTEROL LEVEL 181 MG/DL (<200); CHOLESTEROL RISK RATIO 2.207 (<5); CREATININE FOR GFR 0.82 MG/DL (0.55-1.30); FREE T4 1.05 NG/DL (0.76-1.46); GLOMERULAR FILTRATION RATE > 60.0 (>51); GLUCOSE, FASTING 100 MG/DL (70-100); HDL CHOLESTEROL 82 MG/DL (>40); LDL CHOLESTEROL 80 MG/DL (<100); NON-HDL-C 99 MG/DL; POTASSIUM SERUM 3.9 MEQ/L (3.5-5.1); PTH INTACT 43.2 PG/ML (18.5-88.0); SODIUM LEVEL 140 MEQ/L (136-145); THYROID STIMULATING HORMONE 0.498 uIU/ML (0.358-3.740); TOTAL PROTEIN 7.4 GM/DL (6.4-8.2); TRIGLYCERIDES LEVEL 96 MG/DL (<150); VITAMIN B12 LEVEL 408 PG/ML (247-911)
[2019-12-07 14:33] LABS: HEMOGLOBIN A1c 5.5 %
== END ==
LOC: M SFHCPLAZ 11:12
PROVIDERS: ATTEND Family Medicine
DX: E78.5 Hyperlipidemia, unspecified (principal); R73.01 Impaired fasting glucose; E55.9 Vitamin D deficiency, unspecified

== ENCOUNTER 2020-02-03 10:38 | Inpatient (IN) | payer OTHER, MEDICARE ==
[2020-02-03] MEDS ORDERED: NS 1,000 ML IV SCH (10:51)
[2020-02-03 11:20] LABS: BASO % 0.3 % (0.0-1.0); HEMATOCRIT 48.5 % (36.0-47.0); HEMOGLOBIN 16.5 g/dl (12.0-15.5); LYMPH # 0.9 10^3/uL (1.5-5.0); LYMPH % 8.5 % (24.0-44.0); MEAN CORPUSCULAR HEMOGLOBIN 28.2 pg (27.0-33.0); MEAN CORPUSCULAR VOLUME 82.8 fl (80.0-96.0); MONO # 0.7 10^3/uL (0.0-0.8); MONO % 6.4 % (0.0-5.0); NEUTROPHILS # 8.5 10^3/uL (1.5-8.5); NEUTROPHILS % 83.5 % (36.0-66.0); PLATELET COUNT, AUTOMATED 250 10^3/uL (150-450); RED BLOOD COUNT 5.86 10^6/uL (4.00-5.40); WHITE BLOOD COUNT 10.2 10^3/uL (4.0-10.0)
[2020-02-03 11:35] LABS: VENOUS BASE EXCESS -1.5 (-2.0-2.0); VENOUS HCO3 21.6 MEQ/L (23.0-27.0); VENOUS O2 SATURATION 76.3 % (60.0-80.0); VENOUS PARTIAL PRESSURE CO2 32.6 mmHg (38.0-50.0); VENOUS PARTIAL PRESSURE O2 42.8 mmHg (30.0-50.0); VENOUS STANDARD HCO3 22.7 MEQ/L; VENOUS TOTAL CO2 22.6 MEQ/L (24.0-28.0)
--- NOTE | 2020-02-03 11:40 | REP ---
Chest x-ray: Single portable AP view. History: Altered mental status. Comparison chest x-ray: November 22, 2019. Findings: Monitoring electrodes are seen. Right hemidiaphragm remains slightly elevated. There are clips in right upper quadrant of the abdomen. Mild linear fibrosis is seen in the left base. Heart is not enlarged. No infiltrate is seen. Impression: Linear fibrosis left base. Elevated right hemidiaphragm. Otherwise no acute disease. Electronically Signed by Rey Mims MD 02/03/2020 11:31 A
[2020-02-03 11:46] LABS: OSMOLALITY SERUM 322 MOSM/KG (275-295)
[2020-02-03] MEDS ORDERED: NS 2,480 ML in IV 1 EA IV ONE (12:00)
--- NOTE | 2020-02-03 12:01 | REP ---
Pelvis bilateral hip study: Five views. History: Pain. Comparison imaging August 23, 2012. Findings: AP view of the pelvis demonstrates an intact bony pelvic ring. No pelvic or sacral fracture is seen. SI joints and symphysis pubis are unremarkable and normally aligned. Femoral heads are smooth and rounded. AP and frog-leg views of both hips are presented. These show no evidence of fracture or bony destructive lesion. Periarticular soft tissues are unremarkable. Impression: Negative AP pelvis and bilateral hip study. No acute bony abnormality. Electronically Signed by Rey Mims MD 02/03/2020 11:52 A
[2020-02-03 12:04] LABS: ALBUMIN 3.7 GM/DL (3.2-5.2); ALT/SGPT 69 U/L (12-78); BILIRUBIN,TOTAL 1.9 MG/DL (0.2-1.0); BLOOD UREA NITROGEN 29 MG/DL (7-18); CALCIUM LEVEL 8.8 MG/DL (8.5-10.1); CARBON DIOXIDE LEVEL 24 MEQ/L (21-32); CHLORIDE LEVEL 108 MEQ/L (98-107); CPK CREATINE PHOSPHOKINASE 323 U/L (26-192); CREATININE FOR GFR 0.88 MG/DL (0.55-1.30); ETHYL ALCOHOL (ETHANOL) < 0.003 % (0.000-0.010); GLOMERULAR FILTRATION RATE > 60.0 (>51); GLUCOSE, FASTING 168 MG/DL (70-100); POTASSIUM SERUM 3.5 MEQ/L (3.5-5.1); SALICYLATE LEVEL 2.8 MG/DL (5.0-30.0); SODIUM LEVEL 148 MEQ/L (136-145); TOTAL PROTEIN 7.4 GM/DL (6.4-8.2)
[2020-02-03 12:05] LABS: ACETAMINOPHEN LEVEL < 2.0 UG/ML (10.0-30.0)
[2020-02-03 12:15] LABS: AMPHETAMINES LEVEL URINE NEGATIVE (NEGATIVE); BARBITURATES URINE NEGATIVE (NEGATIVE); BENZODIAZEPINES URINE NEGATIVE (NEGATIVE); CANNABINOIDS URINE NEGATIVE (NEGATIVE); COCAINE METABOLITE URINE NEGATIVE (NEGATIVE); METHADONE URINE NEGATIVE (NEGATIVE); OPIATES URINE NEGATIVE (NEGATIVE); PHENCYCLIDINE URINE NEGATIVE (NEGATIVE)
[2020-02-03] MEDS ORDERED: comment (13:33)
--- NOTE | 2020-02-03 13:39 | REP ---
CT BRAIN WITHOUT CONTRAST: HISTORY: Altered mental status. Comparison MRI study of the brain is from November 22, 2019. Comparison brain CT study is from that same date. CT FINDINGS: Digital preliminary exhibit display representative radiograph shows surgical sutures about a previously placed ericka hole in the left frontal bone. This is unchanged. There is encephalomalacia in the left frontal lobe underlying this ericka hole. This is also unchanged. There is mild generalized volume loss. Visualized paranasal sinuses are clear. The bony calvarium is otherwise intact. There is no evidence of intracranial hemorrhage. No acute infarction, extra-axial fluid collection, or midline shift is seen. IMPRESSION: Old area of encephalomalacia left frontal lobe underlying a ericka hole. Unchanged from comparison study. No acute intracranial abnormality. Electronically Signed by Rey Mims MD 02/03/2020 02:02 P
--- NOTE | 2020-02-03 13:43 | HPEPDOC ---
General Date of Admission 02/03/20 Date of Service: Feb 03, 2020 Chief Complaint The patient is a 59-year-old female admitted with a reason for visit of Alt Mental Status. Source: EMS, EMS notes reviewed, Old records Exam Limitations: Clinical conditions Timing/Duration: 24 hours Severity: Moderate Associated Symptoms: Unobtainable History of Present Illness Patient's 59 years old female with past medical history of bipolar disorder, migraine, hyperlipidemia, obesity presented hospital with altered mental status. According to EMS patient was found on the floor with altered mental status, is unclear how long she was on the floor. Patient missed several appointments with her psychiatrist and she ran out of her psych medications. In emergency room patient was found to have the sense count of 10.2, hematocrit 48.5, lactic acid 4.3, serum osmolality 322, CT head was done and it was negative for acute bleeding or stroke. EKG did not show any acute ischemic changes Ammonia level within normal limit, U tox showed minimal level of alcohol Home Medications Scheduled Atorvastatin Calcium (Atorvastatin Calcium) 20 Mg Tablet, 40 MG PO QHS Buspirone HCl (Buspirone HCl) 30 Mg Tablet, 30 MG PO BID, (Reported) Lamotrigine (Lamotrigine) 200 Mg Tablet, 400 MG PO DAILY, (Reported) Quetiapine Fumarate (Quetiapine Fumarate ER) 50 Mg Tab.er.24h, 50 MG PO QHS, (Reported) TAKES WITH 300MG FOR 350MG TOTAL Quetiapine Fumarate (Quetiapine Fumarate ER) 300 Mg Tab.er.24h, 300 MG PO QHS, (Reported) TAKES WITH 50MG FOR 350MG TOTAL Miscellaneous Medications [comment] , (Reported) Pt unable to verbalize when she last took her medications Allergies Coded Allergies: No Known Allergies (Unverified , 02/03/20) Past Medical History Medical History BIPOLAR DISORDER HISTORY OF SUICIDAL IDEATION/EVANS MIGRAINE HEADACHE, COMMON TYPE LUMBAR SPONDYLOSIS-OCTOBER 2010 MRI WITH L4-S1 BULGES, L4-S1 MINIMAL DSN, FACET ARTHRITIS BY 09/2016 XRAY HYPERLIPIDEMIA 2B OBESITY OSTEOPENIA VITAMIN D DEFICIENCY HISTORY OF RECURRENT UTI NEPHROLITHIASIS-09/03/19 [facility] FOR SYMPTOMATIC R MID URETERAL CALC C 2 MOD R HYDRO IFG Surgical History BUNNY/BSO CRANIOTOMY WITH EXCISION OF COLLOID CYST DECEMBER 1994 WITH REPEAT NOVEMBER 2009-[facility] APPENDECT[facility] TONSILLECTOMY ADENOIDECTOMY LAP CHOL-VINNY 06/25/2017 Family History FATHER: 75 YRS, 2 TO IN, FIRST IN AT 40 MOTHER: ALIVE, HTN 3 BROTHER(S) , 1 SISTER(S) - HEALTHY. A BROTHER DUE TO SUICIDEALL SIBLINGS WITH HTN. Social History * Smoker: Denies Alcohol: occationally Drugs: denies A-FIB/CHADSVASC A-FIB History Current/History of A-Fib/PAF?: No Current PO Anticoag Therapy: No Review of Systems Constitutional: Reports: Other (unobtainable due to altered mental status) Physical Examination General Exam: Positive: Other (does not follow commands, obtunded); Negative: Alert, Cooperative Eye Exam: Positive: PERRLA, Conjunctiva & lids normal ENT Exam: Positive: Atraumatic, Other ENT (some old blood around her mouth, on tongue and gums) Neck Exam: Negative: Supple, JVD Chest Exam: Positive: Clear to auscultation Heart Exam: Positive: Tachycardic; Negative: Rate Normal Telemetry: Positive: Sinus Abdomen Exam: Positive: Normal bowel sounds Extremity Exam: Negative: Clubbing Skin Exam: Positive: Other skin issue (skin is dry) Neuro Exam: Positive: Cranial Nerves 3-12 NL, Reflexes 2+; Negative: Normal Gait, Normal Speech Psych Exam: Positive: Other (obtunded) Vital Signs Vital Signs Date Time Temp Pulse Resp B/P (MAP) Pulse Ox O2 Delivery O2 Flow Rate FiO2 02/03/20 12:44 16 02/03/20 12:39 165/96 (119) 02/03/20 12:38 102 99 02/03/20 10:40 97.5 Room Air Laboratory Data Labs 24H Laboratory Tests 2 02/03/20 10:51: Blood Gas Bicarbonate Standard 22.7, Venous Blood pH 7.440H, Venous Blood Partial Pressure CO2 32.6L, Venous Blood Partial Pressure O2 42.8, Venous Blood Total Carbon Dioxide 22.6L, Venous Blood HCO3 21.6L, Venous Blood Oxygen Saturation 76.3, Venous Blood Base Excess -1.5, Ammonia < 10 02/03/20 11:02: Immature Granulocyte % (Auto) 1.3, Neutrophils (%) (Auto) 83.5H, Lymphocytes (%) (Auto) 8.5L, Monocytes (%) (Auto) 6.4H, Eosinophils (%) (Auto) 0.0, Basophils (%) (Auto) 0.3, Neutrophils # (Auto) 8.5, Lymphocytes # (Auto) 0.9L, Monocytes # (Auto) 0.7, Eosinophils # (Auto) 0.0, Basophils # (Auto) 0.0, Nucleated Red Blood Cells % (auto) 0.9H, Anion Gap 16, Glomerular Filtration Rate > 60.0, Osmolality 322H, Calcium Level 8.8, Total Bilirubin 1.9H, Direct Bilirubin 1.0H, Aspartate Amino Transf (AST/SGOT) 78H, Alanine Aminotransferase (ALT/SGPT) 69, Alkaline Phosphatase 138H, Total Creatine Kinase 323H, Total Protein 7.4, Albumin 3.7, Albumin/Globulin Ratio 1.0L, Thyroid Stimulating Hormone (TSH) 1.080, Salicylates Level 2.8L, Acetaminophen Level < 2.0L, Ethyl Alcohol Level < 0.003 02/03/20 11:04: Lactic Acid Level 4.3*H 02/03/20 11:16: POC Glucose (Misc Panel) 170H, POC Sodium (Misc Panel) 147H, POC Potassium (Misc Panel) 3.4L, POC Chloride (Misc Panel) 108, POC Total CO2 (Misc Panel) 22.0L, POC Blood Urea Nitrogen (Misc Panel 28H, POC Ionized Calcium (Misc Panel) 4.1L, POC Creatinine (Misc Panel) 0.6, POC Hematocrit (Misc Panel) 47.0 02/03/20 11:18: POC Troponin I (Misc) 0.06 02/03/20 11:42: Urine Opiates Screen NEGATIVE, Urine Methadone Screen NEGATIVE, Urine Barbiturates Screen NEGATIVE, Urine Phencyclidine Screen NEGATIVE, Urine Amphetamines Screen NEGATIVE, Urine Benzodiazepines Screen NEGATIVE, Urine Cocaine Metabolite Screen NEGATIVE, Urine Cannabinoids Screen NEGATIVE CBC/BMP Laboratory Tests 02/03/20 11:02 Microbiology Microbiology 02/03/20 Blood Culture, Received Pending 02/03/20 Blood Culture, Received Pending Assessment/Plan Patient's 59 years old female with past medical history of bipolar disorder, migraine, hyperlipidemia, obesity presented hospital with altered mental status. According to EMS patient was found on the floor with altered mental status, is unclear how long she was on the floor. Patient missed several appointments with her psychiatrist and she ran out of her psych medications. In emergency room patient was found to have the sense count of 10.2, hematocrit 48.5, lactic acid 4.3, serum osmolality 322, CT head was done and it was negative for acute bleeding or stroke. EKG did not show any acute ischemic changes Ammonia level within normal limit, U tox showed minimal level of alcohol Problems (1) Dehydration Status: Acute Problem Text: It is unclear how long patient was on the floor Patient is hypovolemic on the exam, skin is dry, hematocrit, serum osmolality, BUN elevated IV fluid (2) Altered mental status Status: Acute Problem Text: Unclear etiology Patient did not follow commands when I saw her, she is obtunded, but before she followed simple commands in ER CT head was negative for acute findings We'll proceed with MRI and MRA to rule out acute stroke I will check urine osmolality U tox negative for substance abuse, minimal level of EtOH Patient does not have leukocytosis, fever We'll check urine analysis and blood culture to rule out infectious cause of metabolic encephalopathy (3) Lactic acidosis Status: Acute Problem Text: Patient developed metabolic acidosis most likely secondary to dehydration and hypoperfusion Continue to monitor Plan / VTE VTE Prophylaxis Ordered?: Yes ANGELO HOFF DO Feb 03, 2020 13:43
--- NOTE | 2020-02-03 14:13 | REP ---
CT STUDY OF THE CERVICAL SPINE WITHOUT CONTRAST: HISTORY: Altered mental status. TECHNIQUE: Helical scanning is acquired and overlapping 2 mm high resolution axial images were generated and reviewed at bone and soft tissue window settings. Coronal and sagittal multiplanar re-formations images are generated. CT FINDINGS: There are mild degenerative spondylosis changes. Osteoarthritic facet hypertrophy is noted on the left in the mid cervical spine. Incidental note is made of spina bifida occulta at the C6 vertebral body with a developmental hypoplasia of the lateral mass on the right at C6 and facet joint asymmetry as a result. There is an associated developmental pars defect on the right. This is unchanged from the August 24, 2013 prior study. There is no evidence of cervical spine element fracture. No skull base fracture is seen. Cervical vertebral body heights are preserved. Alignment is normal. Facet joints are normally aligned bilaterally at each cervical level on multiplanar re-formations images. There is no evidence of intra-spinal or paraspinal hematoma. No extra vertebral abnormality is seen. IMPRESSION: Spina bifida occulta and developmental pars defect on the right at C6, unchanged from comparison study. Mild degenerative spondylosis changes. No traumatic abnormality or acute abnormality seen. Otherwise negative CT study of the cervical spine without contrast. No fracture seen. Electronically Signed by Rey Mims MD 02/03/2020 02:55 P
--- NOTE | 2020-02-03 14:39 | ECGEPIP ---
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
[2020-02-03 15:38] VITALS: BP 116/80
[2020-02-03] MEDS: D5W/0.45% SODIUM CHLORIDE 1,000 ML IV SCH ×2 (15:55→20:40)
[2020-02-03] MEDS: MAGIC MOUTHWASH SUSPENSION BTL SS SCH ×2 (16:55→20:58)
[2020-02-03 17:16] LABS: BLOOD UREA NITROGEN 22 MG/DL (7-18); CARBON DIOXIDE LEVEL 21 MEQ/L (21-32); CHLORIDE LEVEL 114 MEQ/L (98-107); GLOMERULAR FILTRATION RATE > 60.0 (>51); GLUCOSE, FASTING 148 MG/DL (70-100); SODIUM LEVEL 147 MEQ/L (136-145)
[2020-02-03 17:21] LABS: CK-MB VALUE MASS 17.9 NG/ML (<3.6); MB/CK RELATIVE INDEX 3.7 (< OR =4); TROPONIN I 0.23 NG/ML (< 0.10)
[2020-02-03] MEDS ORDERED: KCL 10MEQ/100ML SWI (KRUN) 10 MEQ in IV 1 EA IV ONE (18:00)
--- NOTE | 2020-02-03 18:58 | REPVR ---
PROCEDURE INFORMATION: Exam: MR Angiogram Head Without Contrast, Arteries Exam date and time: 02/03/2020 6:20 PM Age: 59 years old Clinical indication: Headache; Prior surgery; Surgery date: 6+ months; Surgery type: Brain cyst removed from ventricles >10 years prior; Patient HX: KEIKO; Additional info: Stroke TECHNIQUE: Imaging protocol: MR angiogram head without contrast. Exam focused on the arteries. 3D rendering: MIP and/or 3D reconstructed images were created by the technologist. COMPARISON: MRA BRAIN W/O CONTRAST 11/22/2019 11:25 PM FINDINGS: Anterior circulation: Normal flow signal and luminal caliber in the petrous, cavernous and supraclinoid internal carotid arteries. Normal appearance of the anterior cerebral artery branches and middle cerebral artery branches through the MCA trifurcations. No occlusion, high-grade focal stenosis or dissection. No aneurysm. Posterior circulation: Normal distal vertebral arteries, with patent normal caliber basilar artery, and normal superior cerebellar and posterior cerebral arteries. No occlusion, high-grade stenosis or aneurysm. IMPRESSION: Unremarkable MR angiogram of the elim ira of [place] and intracranial vertebrobasilar system. Electronically signed by: Ceasar Cordova On 02/03/2020 18:58:15 PM
--- NOTE | 2020-02-03 19:00 | REPVR ---
PROCEDURE INFORMATION: Exam: MR Head Without Contrast Exam date and time: 02/03/2020 6:20 PM Age: 59 years old Clinical indication: Altered mental status/memory loss; Confusion or disorientation; Prior surgery; Surgery date: 6+ months; Surgery type: Brain cyst removed from ventricles >10 years prior; Patient HX: KEIKO; Additional info: Stroke TECHNIQUE: Imaging protocol: MR of the head without contrast. COMPARISON: MRI-Brain without Contrast 11/22/2019 11:25 PM FINDINGS: No abnormal restriction of diffusion to indicate acute CVA. Left paramedian frontal vertex postsurgical defect is again present, unchanged in appearance, with overlying calvarial deformity. No change in the appearance Midline structures and cerebellar tonsillar position appear normal. Ventricles, cisterns and sulci are symmetric and normal for age. No intracranial mass, midline shift or abnormal extra-axial fluid. No acute intracranial hemorrhage. No abnormal white matter signal on FLAIR and T2 sequences. Optic chiasm and pituitary infundibulum appear normal. Normal vascular flow voids in major intracranial arteries and dural venous sinuses. Paranasal sinuses are normally aerated aside from minimal sphenoid sinus mucosal thickening. Mastoid air cells are normally aerated. Optic globes and orbits are unremarkable. IMPRESSION: No acute or concerning focal new abnormality. Specifically, no evidence of infarct or acute hemorrhage. Right frontal vertex periventricular and parenchymal stable postsurgical changes Electronically signed by: Ceasar Cordova On 02/03/2020 19:00:49 PM
[2020-02-03] MEDS: ATORVASTATIN 20 MG TAB PO SCH (20:58)
[2020-02-03] MEDS: ENOXAPARIN 30MG/0.3ML SYRINGE (J1650 PER 10MG) SC SCH (20:58)
[2020-02-03] MEDS: busPIRone 10 MG TAB PO SCH (20:58)
[2020-02-03 22:00] VITALS: BP 127/87
[2020-02-04] MEDS: D5W/0.45% SODIUM CHLORIDE 1,000 ML IV SCH ×4 (00:04→23:18)
[2020-02-04 01:13] LABS: BLOOD UREA NITROGEN 17 MG/DL (7-18); CALCIUM LEVEL 7.8 MG/DL (8.5-10.1); CARBON DIOXIDE LEVEL 22 MEQ/L (21-32); CHLORIDE LEVEL 115 MEQ/L (98-107); CREATININE FOR GFR 0.54 MG/DL (0.55-1.30); GLOMERULAR FILTRATION RATE > 60.0 (>51); GLUCOSE, FASTING 191 MG/DL (70-100); POTASSIUM SERUM 2.9 MEQ/L (3.5-5.1); SODIUM LEVEL 146 MEQ/L (136-145)
[2020-02-04] MEDS: KCL 10MEQ/100ML SWI (KRUN) 10 MEQ in IV 1 EA IV SCH ×7 (01:33→09:54)
[2020-02-04 06:00] VITALS: BP 122/80
[2020-02-04 06:30] LABS: HEMATOCRIT 38.1 % (36.0-47.0); MEAN CORPUSCULAR HEMOGLOBIN 28.6 pg (27.0-33.0); MEAN CORPUSCULAR HGB CONC 33.9 g/dl (32.0-36.5); MEAN CORPUSCULAR VOLUME 84.5 fl (80.0-96.0); PLATELET COUNT, AUTOMATED 152 10^3/uL (150-450); RED BLOOD COUNT 4.51 10^6/uL (4.00-5.40)
[2020-02-04 06:39] LABS: HEMOGLOBIN 12.9 g/dl (12.0-15.5)
[2020-02-04 06:54] LABS: ALBUMIN 2.8 GM/DL (3.2-5.2); ALT/SGPT 47 U/L (12-78); BILIRUBIN,TOTAL 1.3 MG/DL (0.2-1.0); BLOOD UREA NITROGEN 15 MG/DL (7-18); CALCIUM LEVEL 7.9 MG/DL (8.5-10.1); CARBON DIOXIDE LEVEL 24 MEQ/L (21-32); CHLORIDE LEVEL 115 MEQ/L (98-107); CREATININE FOR GFR 0.58 MG/DL (0.55-1.30); GLOMERULAR FILTRATION RATE > 60.0 (>51); GLUCOSE, FASTING 112 MG/DL (70-100); MAGNESIUM LEVEL 1.7 MG/DL (1.8-2.4); POTASSIUM SERUM 3.6 MEQ/L (3.5-5.1); SODIUM LEVEL 150 MEQ/L (136-145); TOTAL PROTEIN 5.7 GM/DL (6.4-8.2)
--- NOTE | 2020-02-04 08:50 | ECGEPIP ---
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
[2020-02-04] MEDS ORDERED: D5W/0.45% SODIUM CHLORIDE 1,000 ML IV ONE (09:00)
[2020-02-04] MEDS: ONDANSETRON 4MG/2ML VIAL IV PRN ×2 (09:14→16:31)
[2020-02-04] MEDS: busPIRone 10 MG TAB PO SCH ×2 (10:55→20:52)
[2020-02-04] MEDS: MAGIC MOUTHWASH SUSPENSION BTL SS SCH ×2 (10:55→20:52)
[2020-02-04 11:49] LABS: ALBUMIN 2.6 GM/DL (3.2-5.2); ALT/SGPT 43 U/L (12-78); BILIRUBIN,TOTAL 0.9 MG/DL (0.2-1.0); BLOOD UREA NITROGEN 12 MG/DL (7-18); CALCIUM LEVEL 7.5 MG/DL (8.5-10.1); CARBON DIOXIDE LEVEL 23 MEQ/L (21-32); CHLORIDE LEVEL 113 MEQ/L (98-107); CPK CREATINE PHOSPHOKINASE 216 U/L (26-192); CREATININE FOR GFR 0.64 MG/DL (0.55-1.30); GLOMERULAR FILTRATION RATE > 60.0 (>51); GLUCOSE, FASTING 273 MG/DL (70-100); MAGNESIUM LEVEL 1.7 MG/DL (1.8-2.4); POTASSIUM SERUM 3.5 MEQ/L (3.5-5.1); SODIUM LEVEL 143 MEQ/L (136-145); TOTAL PROTEIN 5.3 GM/DL (6.4-8.2)
[2020-02-04] MEDS ORDERED: MAG SULF 1GM/100ML (MAG RUN) 1 GM in IV 1 EA IV ONE (12:00)
[2020-02-04] MEDS ORDERED: ONDANSETRON 4MG/2ML VIAL IV ONE (12:00)
[2020-02-04 14:00] VITALS: BP_SYST 121; BP_SYST 136; BP_DIAS 56; BP_DIAS 86
--- NOTE | 2020-02-04 15:23 | IPNPDOC ---
Text Note Date of Service The patient was seen on 02/04/20. NOTE Subjective: Patient is more alert and awake in the morning, she is oriented. She stated that she didn't eat for a few days and she didn't take her medications. She was able to answer my questions, she knows where she is, but she does not remember what happened with her a few days ago. Objective: VITAL SIGNS: Please see below. GENERAL: awake, alert, NAD HEENT: NCAT, anicteric sclera, ANUSHA NECK: supple, no JVD CARDIOVASCULAR EXAMINATION: NS1S2, regular rate/rhythm RESPIRATORY EXAMINATION: CTA b/l, no wheezes/rales/rhonchi ABDOMINAL EXAMINATION: positive bowel sounds x 4, NT EXTREMITIES: no cyanosis, clubbing, edema SKIN: warm, no rashes. NEUROLOGICAL EXAMINATION: AAO x 3, vertical nystagmus, follows commands, no nuchal rigidity Assessment/Plan Patient's 59 years old female with past medical history of bipolar disorder, migraine, hyperlipidemia, obesity presented hospital with altered mental status. According to EMS patient was found on the floor with altered mental status, is unclear how long she was on the floor. Patient missed several appointments with her psychiatrist and she ran out of her psych medications. In emergency room patient was found to have the sense count of 10.2, hematocrit 48.5, lactic acid 4.3, serum osmolality 322, CT head was done and it was negative for acute bleeding or stroke. EKG did not show any acute ischemic changes Ammonia level within normal limit, U tox showed minimal level of alcohol Problems (1) Dehydration Patient was hypovolemic on admission, skin is dry, hematocrit, serum osmolality, BUN elevated Continue IV fluid (2) Altered mental status Improved, but continues to have forgetfulness CT head was negative for acute findings MRI and MRA negative for acute findings U tox negative for substance abuse, minimal level of EtOH Patient does not have leukocytosis, fever We'll check urine analysis blood culture negative for 24 hours Patient run out her psych medication, she has a history of bipolar disorder. I talked to psychiatrist Dr. Beaver by phone, she recommended to restart her psych meds and observe patient for 2-3 days. (3) Lactic acidosis Patient developed metabolic acidosis most likely secondary to dehydration and hypoperfusion Continue to monitor Hyperkalemia Replaced Continue to monitor CMP VS,Fishbone, I+O VS, Fishbone, I+O Laboratory Tests 02/03/20 16:46 02/04/20 00:13 02/04/20 06:04 02/04/20 10:58 Vital Signs Date Time Temp Pulse Resp B/P (MAP) Pulse Ox O2 Delivery O2 Flow Rate FiO2 02/04/20 06:00 98.3 90 16 122/80 (94) 95 Room Air I&O- Last 24 Hours up to 6 AM 02/04/20 06:00 Intake Total 3180 ml Output Total 350 ml Balance 2830 ml ANGELO HOFF DO Feb 04, 2020 15:23
[2020-02-04] MEDS: MAGNESIUM GLUCONATE 500 MG TAB PO SCH (16:32)
[2020-02-04] MEDS: POTASSIUM CHLORIDE 10 MEQ SR TABLET PO SCH (16:33)
[2020-02-04] MEDS ORDERED: PILL CUTTER 1 EACH XX PRN (16:45)
[2020-02-04 17:20] LABS: ALBUMIN 2.5 GM/DL (3.2-5.2); ALT/SGPT 39 U/L (12-78); BILIRUBIN,TOTAL 0.8 MG/DL (0.2-1.0); BLOOD UREA NITROGEN 10 MG/DL (7-18); CALCIUM LEVEL 7.5 MG/DL (8.5-10.1); CARBON DIOXIDE LEVEL 20 MEQ/L (21-32); CHLORIDE LEVEL 114 MEQ/L (98-107); CREATININE FOR GFR 0.65 MG/DL (0.55-1.30); GLOMERULAR FILTRATION RATE > 60.0 (>51); GLUCOSE, FASTING 170 MG/DL (70-100); MAGNESIUM LEVEL 2.1 MG/DL (1.8-2.4); PHOSPHORUS LEVEL 1.3 MG/DL (2.5-4.9); POTASSIUM SERUM 4.1 MEQ/L (3.5-5.1); SODIUM LEVEL 147 MEQ/L (136-145); TOTAL PROTEIN 5.4 GM/DL (6.4-8.2)
[2020-02-04] MEDS: ATORVASTATIN 20 MG TAB PO SCH (20:51)
[2020-02-04] MEDS: ENOXAPARIN 30MG/0.3ML SYRINGE (J1650 PER 10MG) SC SCH (20:52)
[2020-02-04] MEDS ORDERED: QUEtiapine 300 MG XR TABLET(SEROQUEL XR) PO SCH (21:00)
[2020-02-04 22:00] VITALS: BP 105/69
[2020-02-05] VITALS (48 sets, daily range): BP systolic 70–141; BP diastolic 46–87; O2SAT 99
[2020-02-05] MEDS ORDERED: POTASSIUM PHOSPHATE INJ 30 MMOL in D5W 500 ML IV ONE ×2 (01:00→11:00)
[2020-02-05 01:34] LABS: AMORPHOUS SEDIMENT SMALL (NEGATIVE); APPEARANCE, URINE CLOUDY (CLEAR); BACTERIA, URINE AUTO 2+ (NEGATIVE); BILIRUBIN, URINE AUTO NEGATIVE (NEGATIVE); BLOOD, URINE BLOOD 1+ (NEGATIVE); COLOR, URINE YELLOW (YELLOW); GLUCOSE, URINE (UA) AUTO NEGATIVE (NEGATIVE); KETONE, URINE AUTO NEGATIVE (NEGATIVE); LEUKOCYTE ESTERASE, URINE AUTO 3+ (NEGATIVE); NITRITE, URINE AUTO NEGATIVE (NEGATIVE); PROTEIN, URINE AUTO NEGATIVE (NEGATIVE); RBC, URINE AUTO 20 /HPF (0-3); RENAL EPITHELIAL CELLS 2 /HPF; SPECIFIC GRAVITY URINE AUTO 1.002 (1.002-1.035); SQUAMOUS EPITHELIAL CELL UR AU 3 /HPF (0-6); WBC, URINE AUTO 143 /HPF (0-3)
[2020-02-05 04:19] LABS: BASO % 0.3 % (0.0-1.0); EOS # 0.1 10^3/uL (0.0-0.5); EOS % 1.1 % (0.0-3.0); HEMATOCRIT 33.8 % (36.0-47.0); HEMOGLOBIN 11.1 g/dl (12.0-15.5); LYMPH # 1.1 10^3/uL (1.5-5.0); LYMPH % 18.1 % (24.0-44.0); MEAN CORPUSCULAR HEMOGLOBIN 27.8 pg (27.0-33.0); MEAN CORPUSCULAR HGB CONC 32.8 g/dl (32.0-36.5); MEAN CORPUSCULAR VOLUME 84.7 fl (80.0-96.0); MONO # 0.3 10^3/uL (0.0-0.8); MONO % 4.9 % (0.0-5.0); NEUTROPHILS # 4.7 10^3/uL (1.5-8.5); NEUTROPHILS % 74.5 % (36.0-66.0); RED BLOOD COUNT 3.99 10^6/uL (4.00-5.40); WHITE BLOOD COUNT 6.3 10^3/uL (4.0-10.0)
[2020-02-05 04:47] LABS: PLATELET COUNT, AUTOMATED 93 10^3/uL (150-450)
[2020-02-05 04:51] LABS: ALBUMIN 2.6 GM/DL (3.2-5.2); ALT/SGPT 35 U/L (12-78); BILIRUBIN,TOTAL 0.8 MG/DL (0.2-1.0); BLOOD UREA NITROGEN 6 MG/DL (7-18); CALCIUM LEVEL 7.7 MG/DL (8.5-10.1); CARBON DIOXIDE LEVEL 22 MEQ/L (21-32); CHLORIDE LEVEL 118 MEQ/L (98-107); CREATININE FOR GFR 0.54 MG/DL (0.55-1.30); GLOMERULAR FILTRATION RATE > 60.0 (>51); GLUCOSE, FASTING 131 MG/DL (70-100); POTASSIUM SERUM 3.7 MEQ/L (3.5-5.1); SODIUM LEVEL 147 MEQ/L (136-145); TOTAL PROTEIN 5.1 GM/DL (6.4-8.2)
[2020-02-05] MEDS: D5W/0.45% SODIUM CHLORIDE 1,000 ML IV SCH (06:22)
[2020-02-05] MEDS: MAGIC MOUTHWASH SUSPENSION BTL SS SCH ×3 (09:00→20:04)
[2020-02-05] MEDS: lamoTRIgine 100MG TAB PO SCH (09:00)
[2020-02-05] MEDS: MAGNESIUM GLUCONATE 500 MG TAB PO SCH (09:00)
[2020-02-05] MEDS: busPIRone 10 MG TAB PO SCH (09:00)
[2020-02-05] MEDS: POTASSIUM CHLORIDE 10 MEQ SR TABLET PO SCH (09:02)
[2020-02-05 09:47] LABS: IONIZED CALCIUM 4.1 MG/DL (4.5-5.3)
[2020-02-05 10:23] LABS: MAGNESIUM LEVEL 1.8 MG/DL (1.8-2.4); PHOSPHORUS LEVEL 3.1 MG/DL (2.5-4.9)
[2020-02-05] MEDS ORDERED: CALCIUM GLUCONATE 1,000 MG in D5W MINI-BAG PLUS 100 ML IV ONE (10:30)
[2020-02-05 10:48] LABS: TOTAL 25(OH) VITAMIN D 13.2 NG/ML (30.0-100.0)
[2020-02-05] MEDS ORDERED: SODIUM BICARBONATE 150 MEQ in D5W 1,000 ML IV SCH (11:00)
[2020-02-05] MEDS: cefTRIAXone SOD 1 GM in D5W MINI-BAG PLUS 50 ML IV SCH ×2 (12:07→22:58)
[2020-02-05 12:25] LABS: POTASSIUM RANDOM URINE 20.3 MEQ/L
--- NOTE | 2020-02-05 13:54 | IPNPDOC ---
Text Note Date of Service The patient was seen on 02/05/20. NOTE Subjective: Patient confused and obtunded in the morning, follows simple comm ands, verbally responsive Objective: VITAL SIGNS: Please see below. GENERAL: awake, alert, NAD HEENT: NCAT, anicteric sclera, ANUSHA NECK: supple, no JVD CARDIOVASCULAR EXAMINATION: NS1S2, regular rate/rhythm RESPIRATORY EXAMINATION: CTA b/l, no wheezes/rales/rhonchi ABDOMINAL EXAMINATION: positive bowel sounds x 4, NT EXTREMITIES: no cyanosis, clubbing, edema SKIN: warm, no rashes. NEUROLOGICAL EXAMINATION: AAO x 3, vertical nystagmus, follows commands, no nuchal rigidity Assessment/Plan Patient's 59 years old female with past medical history of bipolar disorder, migraine, hyperlipidemia, obesity presented hospital with altered mental status. According to EMS patient was found on the floor with altered mental status, is unclear how long she was on the floor. Patient missed several appointments with her psychiatrist and she ran out of her psych medications. In emergency room patient was found to have the sense count of 10.2, hematocrit 48.5, lactic acid 4.3, serum osmolality 322, CT head was done and it was negative for acute bleeding or stroke. EKG did not show any acute ischemic changes Ammonia level within normal limit, U tox showed minimal level of alcohol Problems (1) Dehydration Patient was hypovolemic on admission, skin is dry, hematocrit, serum osmolality, BUN elevated Continue IV volume expansion (2) Altered mental status Today patient more confused. Speech specialist recommended nothing by mouth for now CT head was negative for acute findings MRI and MRA negative for acute findings U tox negative for substance abuse, minimal level of EtOH Patient does not have leukocytosis, fever urine analysis showed pyuria, I started ceftriaxone blood culture negative for 48 hours, await urine culture I talked to neurologist Dr. Garcia, he recommended EEG. We will discuss with Dr. Garcia spinal tap We will check level of B12, copper, B1 (3) Lactic acidosis Patient developed metabolic acidosis most likely secondary to dehydration and hypoperfusion on the admission Continue to monitor UTI UA showed pyuria Ceftriaxone started Await urine culture Normal anion gap hyperchloremic metabolic acidosis Bicarbonate IV We'll check urine lites There is concern for RTA or GI loss Hypokalemia Replaced Continue to monitor CMP Hypocalcemia Most likely secondary to vitamin D deficiency Low level of 25-OH vit D Replaced VS,Fishbone, I+O VS, Fishbone, I+O Laboratory Tests 02/04/20 16:41 02/05/20 04:03 Vital Signs Date Time Temp Pulse Resp B/P (MAP) Pulse Ox O2 Delivery O2 Flow Rate FiO2 02/05/20 12:00 97.4 117 21 141/87 (105) 99 Room Air I&O- Last 24 Hours up to 6 AM 02/05/20 06:00 Intake Total 4340 ml Output Total 400 ml Balance 3940 ml ANGELO HOFF DO Feb 05, 2020 13:54
[2020-02-05] MEDS ORDERED: METOPROLOL 5 MG/5 ML VIAL IV STA (15:27)
[2020-02-05] MEDS ORDERED: METOPROLOL 5 MG/5 ML VIAL As Ordered ONE (15:28)
[2020-02-05] MEDS ORDERED: SLF 3 ML SYR IV PRN (15:30)
[2020-02-05] MEDS ORDERED: THIAMINE 200MG/2ML VIAL (J3411 PER 100MG) IM ONE (16:00)
[2020-02-05] MEDS ORDERED: NOREPINEPHRINE 4 MG/4 ML AMP As Ordered ONE (17:20)
[2020-02-05] MEDS: NOREPINEPHRINE BITARTRATE 8 MG in D5W 492 ML IV SCH (17:30)
[2020-02-05 18:03] LABS: ABG BASE EXCESS -5.3 (-2.0-2.0); ABG HCO3 21.3 MEQ/L (22.0-26.0); ABG PARTIAL PRESSURE CO2 46.3 mmHg (35.0-45.0); ABG STANDARD HCO3 20.1 MEQ/L (22.0-26.0); ABG TOTAL CO2 22.7 MEQ/L (22.0-29.0)
[2020-02-05] MEDS ORDERED: SODIUM CHLORIDE 0.9% 1000ML IV ONE (18:15)
[2020-02-05] MEDS ORDERED: NS 1,000 ML IV ONE (18:15)
[2020-02-05] MEDS: MIDAZOLAM INJ 2MG/2ML VIAL (J2250 PER 1MG) IV PRN ×3 (18:23→22:58)
[2020-02-05 18:26] LABS: HEMATOCRIT 30.9 % (36.0-47.0); HEMOGLOBIN 10.1 g/dl (12.0-15.5); MEAN CORPUSCULAR HEMOGLOBIN 28.2 pg (27.0-33.0); MEAN CORPUSCULAR HGB CONC 32.7 g/dl (32.0-36.5); MEAN CORPUSCULAR VOLUME 86.3 fl (80.0-96.0); PLATELET COUNT, AUTOMATED 100 10^3/uL (150-450); RED BLOOD COUNT 3.58 10^6/uL (4.00-5.40); WHITE BLOOD COUNT 20.7 10^3/uL (4.0-10.0)
[2020-02-05 18:32] LABS: ALBUMIN 2.1 GM/DL (3.2-5.2); ALT/SGPT 212 U/L (12-78); BILIRUBIN,TOTAL 0.9 MG/DL (0.2-1.0); BLOOD UREA NITROGEN 6 MG/DL (7-18); CALCIUM LEVEL 8.7 MG/DL (8.5-10.1); CARBON DIOXIDE LEVEL 20 MEQ/L (21-32); CHLORIDE LEVEL 106 MEQ/L (98-107); CK-MB VALUE MASS 4.3 NG/ML (<3.6); CPK CREATINE PHOSPHOKINASE 109 U/L (26-192); CREATININE FOR GFR 0.93 MG/DL (0.55-1.30); GLOMERULAR FILTRATION RATE > 60.0 (>51); GLUCOSE, FASTING 359 MG/DL (70-100); MAGNESIUM LEVEL 1.8 MG/DL (1.8-2.4); MB/CK RELATIVE INDEX 3.94 (< OR =4); PHOSPHORUS LEVEL 7.6 MG/DL (2.5-4.9); POTASSIUM SERUM 4.4 MEQ/L (3.5-5.1); PROLACTIN 64.1 NG/ML; SODIUM LEVEL 142 MEQ/L (136-145); TOTAL PROTEIN 4.7 GM/DL (6.4-8.2); TROPONIN I 0.05 NG/ML (< 0.10)
[2020-02-05 18:37] LABS: THYROGLOBULIN ANTIBODY 21.8 U/ML (<60.0)
[2020-02-05 18:44] LABS: LYMPHOCYTES 1 % (16-44); METAMYELOCYTES 1 % (0-0); NEUTROPHILS 92 % (28-66)
[2020-02-05 18:45] LABS: OVALOCYTES 1+; POIKILOCYTOSIS 1+
[2020-02-05 18:46] LABS: PLATELET ESTIMATE DECREASED (NORMAL)
[2020-02-05] MEDS ORDERED: DEXTROSE 50% 50 ML SYRINGE IV PRN (19:15)
[2020-02-05] MEDS ORDERED: GLUCAGON INJ 1MG VIAL SC PRN (19:15)
[2020-02-05] MEDS ORDERED: GLUCOSE 4GM CHEW TABLET PO PRN (19:15)
[2020-02-05] MEDS ORDERED: PANTOPRAZOLE 40MG VIAL (C9113 PER 1) IV SCH (20:00)
[2020-02-05] MEDS: NS 0.45% 1,000 ML IV SCH (20:04)
[2020-02-05] MEDS: CHLORHEXIDINE GLUCONATE 0.12 % 15ML UDC (PERIDEX ORAL RINSE) MT SCH (20:04)
[2020-02-05] MEDS: ENOXAPARIN 30MG/0.3ML SYRINGE (J1650 PER 10MG) SC SCH (20:04)
[2020-02-05] MEDS: HumaLOG INSULIN (NovoLOG) PER UNIT SC SCH (20:24)
[2020-02-05 20:50] LABS: BLOOD UREA NITROGEN 6 MG/DL (7-18); CALCIUM LEVEL 7.6 MG/DL (8.5-10.1); CARBON DIOXIDE LEVEL 24 MEQ/L (21-32); CHLORIDE LEVEL 111 MEQ/L (98-107); CREATININE FOR GFR 0.61 MG/DL (0.55-1.30); GLOMERULAR FILTRATION RATE > 60.0 (>51); GLUCOSE, FASTING 252 MG/DL (70-100); POTASSIUM SERUM 3.7 MEQ/L (3.5-5.1); SODIUM LEVEL 144 MEQ/L (136-145)
[2020-02-05 21:55] LABS: TROPONIN I 0.07 NG/ML (< 0.10)
[2020-02-05] MEDS: SLF 3 ML SYR IV SCH (22:14)
[2020-02-06] VITALS (65 sets, daily range): BP systolic 56–160; BP diastolic 34–104; O2SAT 99–100
[2020-02-06] MEDS: MIDAZOLAM INJ 2MG/2ML VIAL (J2250 PER 1MG) IV PRN ×3 (00:15→04:13)
[2020-02-06] MEDS: HumaLOG INSULIN (NovoLOG) PER UNIT SC SCH ×6 (01:00→20:10)
--- NOTE | 2020-02-06 03:35 | REP ---
REASON FOR EXAM: Altered mental status. COMPARISON: 2 days ago. There is no change from 2 days ago. There are chronic changes, status quo. IMPRESSION: No acute intracranial pathology has developed since the last exam 2 days ago. There are no changes. Electronically Signed by Daniel Balbuena DO 02/06/2020 10:24 A
[2020-02-06 04:14] LABS: BLOOD UREA NITROGEN 5 MG/DL (7-18); CALCIUM LEVEL 7.5 MG/DL (8.5-10.1); CARBON DIOXIDE LEVEL 27 MEQ/L (21-32); CHLORIDE LEVEL 108 MEQ/L (98-107); CREATININE FOR GFR 0.42 MG/DL (0.55-1.30); GLOMERULAR FILTRATION RATE > 60.0 (>51); GLUCOSE, FASTING 95 MG/DL (70-100); POTASSIUM SERUM 3.8 MEQ/L (3.5-5.1); SODIUM LEVEL 140 MEQ/L (136-145)
[2020-02-06] MEDS ORDERED: CALCIUM CHLORIDE 10% 1 GM/10 ML SYR ONE (04:18)
[2020-02-06] MEDS ORDERED: MAGNESIUM SULFATE 1GM/2ML (8MEQ/2ML) VIAL ONE (04:18)
[2020-02-06] MEDS ORDERED: SODIUM BICARBONATE 8.4% INJ 50 ML SYRINGE ONE (04:18)
[2020-02-06] MEDS ORDERED: EPINEPHrine 1MG/10ML SYRINGE 1.5IN ONE (04:18)
--- NOTE | 2020-02-06 04:28 | REP ---
CHEST, SINGLE VIEW: Single view of the chest is performed and compared to prior study 02/03/2020. Endotracheal tube tip is 3 cm above the nicole. Right central venous catheter is noted with the tip at the junction of the superior vena cava and right atrium. There is no pneumothorax. Heart is upper limits of normal in size. There are left upper and lower lobe infiltrates. Right lung is unchanged. Electronically Signed by Max Alberts MD 02/07/2020 03:55 P
[2020-02-06] MEDS: NS 0.45% 1,000 ML IV SCH (05:32)
[2020-02-06 05:33] LABS: ABG BASE EXCESS 2.2 (-2.0-2.0); ABG HCO3 25.2 MEQ/L (22.0-26.0); ABG O2 SATURATION 98.9 % (95.0-99.0); ABG PARTIAL PRESSURE CO2 33.8 mmHg (35.0-45.0); ABG PARTIAL PRESSURE O2 146.4 mmHg (75.0-100.0); ABG STANDARD HCO3 26.5 MEQ/L (22.0-26.0); ABG TOTAL CO2 26.3 MEQ/L (22.0-29.0); ABG pH (ARTERIAL) 7.491 UNITS (7.350-7.450)
[2020-02-06] MEDS: SLF 3 ML SYR IV SCH ×3 (05:33→21:50)
[2020-02-06 05:56] LABS: HEMATOCRIT 33.1 % (36.0-47.0); HEMOGLOBIN 11.4 g/dl (12.0-15.5); MEAN CORPUSCULAR HEMOGLOBIN 28.4 pg (27.0-33.0); MEAN CORPUSCULAR HGB CONC 34.4 g/dl (32.0-36.5); MEAN CORPUSCULAR VOLUME 82.5 fl (80.0-96.0); RED BLOOD COUNT 4.01 10^6/uL (4.00-5.40)
[2020-02-06 06:16] LABS: ALBUMIN 2.2 GM/DL (3.2-5.2); ALT/SGPT 160 U/L (12-78); BILIRUBIN,TOTAL 1.7 MG/DL (0.2-1.0); BLOOD UREA NITROGEN 6 MG/DL (7-18); CALCIUM LEVEL 7.4 MG/DL (8.5-10.1); CARBON DIOXIDE LEVEL 27 MEQ/L (21-32); CHLORIDE LEVEL 107 MEQ/L (98-107); GLOMERULAR FILTRATION RATE > 60.0 (>51); GLUCOSE, FASTING 104 MG/DL (70-100); MAGNESIUM LEVEL 1.5 MG/DL (1.8-2.4); PLATELET COUNT, AUTOMATED 93 10^3/uL (150-450); POTASSIUM SERUM 3.4 MEQ/L (3.5-5.1); SODIUM LEVEL 140 MEQ/L (136-145); TOTAL PROTEIN 4.8 GM/DL (6.4-8.2)
--- NOTE | 2020-02-06 06:19 | RO ---
DATE OF PROCEDURE: 02/05/2020 PROCEDURE: Central line insertion. INDICATION: Vasopressor administration. PREPROCEDURE DIAGNOSIS: Shock. POSTPROCEDURE DIAGNOSIS: Shock. ATTENDING PHYSICIAN: Dr. Lian Khoury CONSENT: Due to the emergent nature of the procedure, consent was implied. PROCEDURE SUMMARY: A central line insertion practice form was completed by independent service. Starting first with a hand wash prior to starting sterile technique. A time out was performed. Full sterile technique was maintained throughout the procedure, including surgical cap, mask, protective eye wear, full gown and sterile gloves. The patient was placed in Trendelenburg position. The right chest region was prepped using chlorhexidine scrub and draped in sterile fashion using a fenestrated drape and a sterile probe cover employed. The right internal jugular vein was identified using ultrasound. Using real time out of plane guidance, the introducer needle was inserted into the right internal jugular vein under direct ultrasound visualization. Venous blood was withdrawn. The syringe was removed and a guidewire was advanced into the introducer needle. This needle was removed over the guidewire. A small incision was made at the skin surface with a scalpel. A dilator was exchanged over the guidewire. After appropriate dilation was obtained, the dilator was exchanged over the wire for a triple lumen central venous catheter. The wire was removed and the catheter was sutured in place at 18 cm. A sterile chlorhexidine impregnated dressing was placed over the catheter at the insertion site. The patient tolerated the procedure without any hemodynamic compromise. At time of procedure completion, all ports were aspirated and flushed properly. A postprocedure chest x-ray was pending. Estimated blood loss was less than 5 mL. [facility]
[2020-02-06 06:28] LABS: LYMPHOCYTES 6 % (16-44); NEUTROPHILS 94 % (28-66)
[2020-02-06 06:29] LABS: ANISOCYTOSIS 1+; OVALOCYTES 2+; PLATELET ESTIMATE DECREASED (NORMAL)
[2020-02-06] MEDS ORDERED: REFRIGERATOR IV KEYS XX PRN (07:15)
--- NOTE | 2020-02-06 07:42 | CR ---
DATE OF CONSULTATION: 02/05/2020 CHIEF COMPLAINT: Cardiac arrest. HISTORY OF PRESENT ILLNESS: Ms. 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 History is obtained from the chart and from other collateral information as the patient is currently intubated and unable to provide history. The patient had reportedly missed several appointments with her psychiatrist and had been noncompliant with her home medication, including her seizure medication Lamictal. She had been found by EMS down on the floor with altered mental status. Her initial head CT had shown post surgical changes as well as a chronic frontal lobe encephalomalacia, but no other acute abnormalities. She was also noted on admission to have a mild hypernatremia as well as mildly elevated bilirubin and CPK. The patient was also noted to have a lactic acidosis which did improve with IV fluid hydration. She was thought to have a component of hypovolemia, likely secondary to decreased by mouth intake. The patient did initially have a mild leukocytosis as well as left shift with neutrophil predominant. She was initially given IV fluids and monitored without antibiotics. The patient initially had some improvement with her mental status after IV fluid hydration. She was more awake and was conversive at that time. Overnight, however, and into this morning the patient was noted to be more lethargic and somnolent. She was initially able to follow some simple commands, although was significantly drowsy. The patient had a urinalysis (UA) ordered which had shown increased leukocyte esterase as well as bacteria and white blood cells (WBCs). She was started on ceftriaxone earlier this morning. The patient was then brought to CT for an acute head CT. Upon return from imaging, she was noted to be apneic and was then in pulseless electrical activity (PEA) arrest. The patient had cardiopulmonary resuscitation (CPR) initiated. She was given epinephrine as well as bicarbonate. She had return of spontaneous circulation (ROSC) achieved after approximately 15 minutes of resuscitation. The patient was intubated by anesthesia during the cardiac arrest. She was transferred to the intensive care unit (ICU) for further management. Post arrest, the patient was hypotensive and was started on Levophed for blood pressure support. She was minimally responsive post arrest. Her [place] Coma Scale (GCS) earlier in the afternoon prior to her cardiac arrest was around 8. PAST MEDICAL AND SURGICAL HISTORY: 1. Bipolar disorder. 2. Migraine headaches. 3. Lumbar spondylosis. 4. Hyperlipidemia. 5. Obesity. 6. Osteopenia. 7. Vitamin D deficiency. 8. History of recurrent urinary tract infections (UTIs). 9. Nephrolithiasis. 10. Craniotomy with excision of colloid cyst with two surgeries. 11. Seizure disorder. 12. Appendectomy. 13. Tonsillectomy. 14. Adenoidectomy. 15. Laparoscopic cholecystectomy. 16. BUNNY/BSO. FAMILY HISTORY: Father with history of myocardial infarction (ME). Mother with history of hypertension. Sibling with history of hypertension and suicidal ideation. SOCIAL HISTORY: Unable to be obtained from the patient as the patient is intubated. Previously had reported no history of tobacco use or alcohol use. HOME MEDICATIONS: - atorvastatin - buspirone - Lamictal - Seroquel ALLERGIES: No known drug allergies. PHYSICAL EXAMINATION: Vitals: Temperature 96.6, pulse 102, respirations 14, blood pressure 88/58, oxygen saturation 93% on ventilator at 70% FiO2. General: The patient is intubated, not sedated. She is unresponsive to painful stimuli. HEENT: Normocephalic, atraumatic. Pupils are small, but do not appear reactive to light currently bilaterally. There is very minimal gag reflex noted. There is some dried blood noted in her mouth. There is some blood noticed in the endotracheal (ET) tube as well. Neck is supple. Trachea is midline. There is no palpable cervical adenopathy. No jugular venous distention (JVD) noted. Cardiac: Tachycardiac. Regular rate and rhythm. Normal S1, S2. Unable to appreciate murmurs. Pulmonary: There is coarse ventilator breath sounds bilaterally. No wheezing, rales or rhonchi. Abdomen: Soft. Mildly distended. Nontender. No palpable masses. Extremities: There is no significant lower extremity edema bilaterally. LABORATORIES: WBC 20.0, hemoglobin 10.1, platelets 100. Chemistries: Sodium 142, potassium 4.4, chloride 106, bicarbonate 20, BUN 6, creatinine 0.93, anion gap 16, glucose 359, calcium 8.7, phosphorus 7.6, magnesium 1.8, total bilirubin 0.9, AST 295, ALT 212, ammonia level 108, troponin 0.05, albumin 2.1, prolactin 64.1. ABG: Post intubation, 7.280, pCO2 of 46.3, pO2 of 127. Previous ABG was from two days ago and did not show any hypercarbia. Urine toxicology on admission was negative. Ethyl alcohol level, acetaminophen and salicylate were negative. Microbiology: Blood cultures on admission showed no growth to date. IMAGING: Chest x-ray on admission had shown mild right hemidiaphragm elevation and mild linear atelectasis in the left base. There were some surgical clips in the right upper quadrant. Head CT on admission had shown area of encephalomalacia in the left frontal lobe underlying a bur hole, no acute intracranial abnormality. MRI of the brain had shown no acute or focal abnormality. No evidence of infarct or acute hemorrhage. There was right frontal vertex periventricular and parenchymal post surgical changes which are unchanged. ASSESSMENT AND PLAN: Ms. Jeremy Alejandro is a 59-year-old female with a past medical history of bipolar disorder, migraines, seizure disorder, previous surgical craniotomy and colloid cyst removal, hyperlipidemia, and obesity who had presented with complaints of altered mental status. The patient had apparently missed her visits with the psychiatrist and had been noncompliant with her psychiatric medication, including her seizure medication. She was found down at home on the floor by EMS for an unknown period of time. Initially, the patient was thought to have dehydration and hypokalemia secondary to decreased by mouth intake. She did have mild hypernatremia as well as appeared to have some hemoconcentration initially on her CBC. With IV fluid hydration, she did have some improvement in her mental status initially, however, overnight and this morning the patient was noted to be more obtunded and confused. Her initial blood culture and chest x-ray had shown no focal opacity. Her UA performed earlier this morning had shown evidence of pyuria and she was started on ceftriaxone. The patient had gone for repeat imaging of her brain given the change in her mental status. Upon return, the patient was noted to be unresponsive and pulseless. CPR was started and the patient was intubated during her cardiac arrest. The patient had ROSC achieved approximately 15 minutes. Post arrest, she was transferred to the ICU for further management. In the ICU, the patient was hypotensive and was started on Levophed, initially peripherally, prior to the placement of a right internal jugular (IJ) triple lumen catheter and she was started then on Levophed for blood pressure support. Neurologic: Altered mental status and encephalopathy. The patient was reportedly noted earlier this morning to have evidence of horizontal nystagmus. She does have a history of seizure disorder and had been noncompliant with her seizure medication. The patient's alerted mental status earlier may have been in the setting of possible seizure. In the past, she has reported having what sounds to be absent seizures. She has been on anti-seizure medication since her craniotomy surgeries. The patient does also have chronic left frontal encephalomalacia which may be a potential focus for seizures. - The patient also with acute cystitis which may have possibly lowered her seizure threshold as well as contributed to her encephalopathy. - The patient did have elected prolactin level, although this was also drawn post cardiac arrest which can also increase prolactin. - Would continue her on Lamictal for seizures for now. Will also get an electroencephalogram (EEG) for further evaluation. - Will continue to monitor for seizures and will give benzodiazepines as needed for any seizure activity. - The patient post arrest was noted to be minimally responsive. She is not a candidate for hypothermia protocol as pre-arrest her GCS score was already less than 10 and her arrest was thought to be secondary to a non-cardiac event, possibly in the setting of sepsis and respiratory failure from respiratory depression and seizures. - Will maintain patient normothermic however with the use of Tylenol and cooling blanket. - Will continue patient on Versed as needed for agitation and continue to monitor her neurologic exam and status. The patient may have a component of anoxic injury given her cardiac arrest. Will need to continue to assess and monitor her neurologic exam. - Will followup final results of her head CT which are still pending. Cardiac: Patient with no significant previous cardiac history. She had a PEA arrest, likely in the setting of a respiratory arrest as the initial event, likely due to altered mental status and respiratory depression. - Post arrest, the patient is in shock, possibly secondary to sepsis. She does have evidence of UTI on her UA and post arrest is noted to have leukocytosis. Her chest x-ray also shows a focal area of opacity in the left upper lobe and left lower lobe suspicious for possible aspiration and consolidation. - The patient was given IV fluid boluses at 30 mL per kg for sepsis protocol. - The patient was also started on Levophed for blood pressure support and will titrate to maintain a MAP above 65. - The patient had a right IJ triple lumen placed on 02/05/2020 for vasopressor administration. - The patient's EKG post arrest shows evidence of a new right bundle branch block. Will repeat EKG in the a.m. and will continue to trend cardiac enzymes. Will get an echocardiogram also. The patient initially without significant cardiac enzymes which is less consistent with an acute coronary event. She may have increase in her cardiac enzymes post arrest secondary to the resuscitation. Pulmonary: The patient was intubated during her cardiac arrest. The patient likely with respiratory failure secondary to encephalopathy from sepsis versus seizure disorder which contributed then to her cardiac arrest. - Will continue patient on mechanical ventilation with PRVC with settings of 380/18/65/8. Her PEEP and FiO2 have been weaned down. Her last ABG had shown a combination of metabolic and respiratory acidosis and so respiratory rate was increased. - Will continue to get daily ABG and chest x-ray while intubated. - Will continue with vent bundle care with head of bed elevation and chlorhexidine mouth wash. - Will check a sputum culture as her x-ray post intubation has shown opacity in left upper lobe and left lower lobe - will broaden antibiotics to zosyn and check sputum culture GI: Patient with some dark output via orogastric (OG) tube post arrest. - Will continue OG tube to low wall intermittent suction and will start proton pump inhibitor (PPI) IV. - Patient with transaminitis likely secondary to shock liver from her cardiac arrest. Renal: Patient with metabolic and respiratory acidosis. Patient also with a lactic acidosis in the setting of cardiac arrest. Will follow up repeat lactic acid as well as continue to followup repeat chemistry and ABG. - Patient also with hyperglycemia. No previous history of diabetes. Will start her on fingerstick glucose check every 4 hours with sliding scale insulin coverage. - Will continue to monitor her electrolytes and replete as needed. - The patient is status post normal saline IV fluid bolus for sepsis. Will continue with maintenance with 1/2 normal saline (NS) at 100 mL/hr. Heme: Patient with mild thrombocytopenia. Possibly in the setting of sepsis. Will continue to monitor. Patient also with anemia. Initially, likely had some component of hemoconcentration, however, her previous hemoglobin has been 12 and her last hemoglobin was 10. She does have some dark output from her OG tube and so will continue to monitor for evidence of bleeding. Deep vein thrombosis (DVT) prophylaxis with Lovenox. Gastrointestinal prophylaxis with PPI. CODE STATUS: Full code. The patient reportedly has a son that she is in contact with. Will followup with her next of kin about goals of care and code status. Total critical care time spent, not including procedures, approximately 2 hours and 25 minutes. MTDD
--- NOTE | 2020-02-06 08:17 | REP ---
Portable chest x-ray: Single AP view. History: Intubated patient. Comparison study February 05, 2020. Findings: Endotracheal tube is seen in good position at the level of proximal clavicles. A right internal jugular central venous line terminates in the expected location superior vena cava. A nasogastric tube has been inserted since yesterday's radiograph and is seen coiled in the gastric fundus. There is mild gaseous distension of the stomach. A fairly dense infiltrate is seen in the left upper lobe although there is improved aeration compared yesterday's radiograph. The right lung remains clear. Electronically Signed by Rey Mims MD 02/06/2020 08:08 A
--- NOTE | 2020-02-06 08:33 | ECHO ---
DATE OF STUDY: 02/05/2020 REFERRING PHYSICIAN: Dr. Chris Vazquez INDICATION: Chest pain unspecified. HEIGHT: 155 cm. WEIGHT: 83 kg. 2-D MEASUREMENTS: Aortic root: 3.0 cm Left atrium: 3.0 cm Left ventricle diastole: 4.0 cm Ventricular septum: 1.17 cm Posterior wall: 1.15 cm LVOT: 2.0 cm Inferior vena cava: 1.1 cm (more than 50% respiratory variation) DOPPLER MEASUREMENTS: No aortic regurgitation No aortic stenosis Aortic valve velocity: 225 cm/sec LVOT velocity: 167 cm/sec No mitral stenosis No mitral regurgitation Mitral E velocity: 73.1 cm/sec Mitral A velocity: 113 cm/sec No tricuspid regurgitation No pulmonic regurgitation Pulmonary artery systolic pressure: 30 mmHg MITRAL ANNULAR TISSUE DOPPLER: E prime septal: 12.5 cm/sec E prime lateral: 10.0 cm/sec DESCRIPTION: The rhythm was sinus tachycardia. Image quality was moderately technically difficult. This study was performed with the patient supine. CONCLUSIONS: 1. Hyperdynamic left and right ventricle systolic function. Normal left and right ventricle size. No regional wall abnormalities of the left ventricle. LVEF 75% by visual estimate. Normal LV diastolic function. 2. No pericardial effusion. 3. Otherwise normal appearing echocardiogram Doppler.
[2020-02-06] MEDS: CHLORHEXIDINE GLUCONATE 0.12 % 15ML UDC (PERIDEX ORAL RINSE) MT SCH ×2 (08:40→20:09)
[2020-02-06] MEDS: PIPERACILLIN/TAZOBACTAM SOD 3.375 GM in D5W MINI-BAG PLUS 50 ML IV SCH ×3 (08:40→18:22)
[2020-02-06] MEDS: lamoTRIgine 100MG TAB PO SCH (08:42)
[2020-02-06] MEDS: PANTOPRAZOLE 40MG VIAL (C9113 PER 1) IV SCH ×2 (08:45→20:09)
[2020-02-06] MEDS: POTASSIUM CHLORIDE 10 MEQ SR TABLET PO SCH (08:46)
[2020-02-06] MEDS: MAGIC MOUTHWASH SUSPENSION BTL SS SCH ×2 (09:00→22:15)
[2020-02-06] MEDS: MIDAZOLAM HCL 100 MG in D5W 80 ML IV SCH (09:19)
[2020-02-06 09:56] LABS: BLOOD UREA NITROGEN 5 MG/DL (7-18); CALCIUM LEVEL 7.9 MG/DL (8.5-10.1); CARBON DIOXIDE LEVEL 28 MEQ/L (21-32); CHLORIDE LEVEL 111 MEQ/L (98-107); CREATININE FOR GFR 0.46 MG/DL (0.55-1.30); GLOMERULAR FILTRATION RATE > 60.0 (>51); GLUCOSE, FASTING 92 MG/DL (70-100); POTASSIUM SERUM 3.6 MEQ/L (3.5-5.1); SODIUM LEVEL 145 MEQ/L (136-145)
--- NOTE | 2020-02-06 10:21 | REP ---
CT BRAIN WITHOUT CONTRAST: HISTORY: Cardiac arrest/seizure history. Comparison head CT study February 05, 2020. CT FINDINGS: Preliminary digital race starter radiograph demonstrates craniotomy sutures in the frontal vertex region. Orotracheal and/or oral esophageal tubes are visualized. Bone window settings demonstrate a prior craniotomy site in the left paramedian frontal bone. The patient is oblique within the scanner gantry. There is minimal mucosal thickening in the sphenoid sinuses. Bony calvarium is otherwise intact. On today's CT study, there is decreased conspicuity in the alberts-white differentiation pattern suggesting diffuse cerebral edema/some degree of anoxic encephalopathy. There is old area of encephalomalacia in the left frontal lobe posteriorly. This is unchanged. There is no evidence of intracranial hemorrhage. No extra-axial fluid collection, mass or midline shift is seen. IMPRESSION: Alberts-white differentiation pattern is less conspicuous. 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 Old encephalomalacia left frontal lobe. No hemorrhage seen. Electronically Signed by Rey Mims MD 02/06/2020 11:16 A
--- NOTE | 2020-02-06 10:21 | EEG ---
DATE OF STUDY: 02/05/2020 REFERRING PHYSICIAN: Dr. Chris Vazquez DIAGNOSIS: Altered mental status. EEG #: [id number] HISTORY: The patient is a 59-year-old woman who was admitted at [facility] due to altered mental status. She was found unresponsive at home. She is currently on ceftriaxone, Lipitor, BuSpar, Seroquel, and lamotrigine. TECHNICAL DESCRIPTION: This digital EEG was recorded by 21 scalp, ear and two EKG electrodes and was reviewed in bipolar and referential montages following reformatting in 10-20 international electrode placement system. INTERPRETATION: The patient remained in a drowsy state during this EEG. Resting background rhythm consisted of 6 Hz theta activity measuring 15-50 microvolts in amplitude which was symmetric bilaterally. The patient remained unresponsive and drowsy throughout this EEG. No sleep was achieved. Hyperventilation could not be performed. Photic stimulation remained unremarkable. EKG revealed sinus tachycardia. F3 and C4 electrode artifacts were noted periodically. No focal, lateralizing or epileptiform abnormalities were seen. No relevant clinical activity was noted. CONCLUSION: This EEG in mostly drowsy and confused state is abnormal due to presence of generalized slowing consistent with nonspecific diffuse cerebral dysfunction such as seen in encephalopathy due to multiple potential causes including toxic, metabolic, infectious, medication related or multifocal structural brain abnormalities. No epileptiform abnormalities were seen. Clinical correlation is recommended. MTDD
--- NOTE | 2020-02-06 10:26 | CR ---
DATE OF CONSULTATION: 02/05/2020 REFERRING PHYSICIAN: Dr. Pa Vazquez REASON FOR CONSULTATION: Altered mental status. HISTORY OF PRESENT ILLNESS: Debbie Alejandro is a 59-year-old woman with history of bipolar disorder, migraines, dyslipidemia who was admitted at [facility] on 02/03/2020 for altered mental status. She was found on the floor with altered mental status. It was unclear how long she was on the floor. The patient has missed several appointments with her psychiatrist and ran out of her medications. CT scan of her head was unremarkable for acute disease in emergency department. Her ammonia level was within normal limits on admission and toxicology screen showed level of alcohol was <0.003. The patient continued to have altered mental status but her mental state fluctuated. During her hospitalization, she had MRI scan of brain which showed stable postsurgical changes in left frontal region due to history of resection of colloid cyst. I was consulted this morning around 10:30 a.m. I was able to review her MRI scan of brain, which did not show any acute disease as described above. I recommended electroencephalogram (EEG) and taking her vitamin B12, B1, serum copper etc. The patient had been afebrile since admission and her white count was within normal limits. We discussed considering spinal tap if her EEG is unremarkable. I received another phone call by Dr. Vazquez that the patient's altered mental status was worse around 3:30-3:40 p.m.. I recommended STAT CT scan of head. When I came to see the patient around 4 p.m., the patient had gone to radiology for CT scan of head. When the patient was brought back to her room, she was found unresponsive and immediate cardiopulmonary resuscitation (CPR) was initiated. The patient was found to be in asystole and was resuscitated for 10- 15 minutes. Her heart rhythm returned to ventricular and then sinus tachycardia. The patient was transferred to intensive care unit. She remained unresponsive. DIAGNOSTIC STUDIES: CT scan of head twice and MRI scan of brain showed stable left frontal encephalomalacia due to resection of colloid cyst in past. Urine toxicology screen was unremarkable. Her EEG showed encephalopathy and sinus tachycardia. TSH was 1.08 and CK was 216. BMP showed sodium 150, which decreased to 147, chloride 22, GFR greater than 60%, creatinine 0.5. AST decreased from 57 to 37 and normal alkaline phosphatase and capital ALT. Ammonia level was less than 10. Hemoglobin was 11.1. Platelet count decreased from 250 to 152 to 93. Urinalysis showed too numerous WBCs, 2+ bacteria, and 3+ leukocyte esterase. Lactic acid level was 4.3 at the time of admission. Blood alcohol level was less than 0.003. CURRENT MEDICATIONS: - Lipitor 40 mg by mouth daily - BuSpar 30 mg by mouth twice a day - Lamictal 400 mg by mouth daily - Seroquel extended-release 350 mg at bedtime - Ceftriaxone IV. ALLERGIES: NONE. PAST MEDICAL HISTORY: 1. Bipolar disorder with history of suicidal ideation. 2. Migraines. 3. Dyslipidemia, 4. Obesity. 5. Osteopenia. 6. Vitamin D deficiency. 7. Kidney stones. 8. Hysterectomy. 9. Craniotomy for colloid cyst dissection in 1994, which was repeated in 2009 at [facility]. 10. Appendectomy. 11. Tonsillectomy. FAMILY HISTORY: Father with history of coronary artery disease. SOCIAL HISTORY: Occasional alcohol intake, but no smoking or illicit drugs. REVIEW OF SYSTEMS: Could not be performed. PHYSICAL EXAMINATION: Temperature 96.6 with maximum temperature (Tmax) 98.6 in the last 48 hours. Blood pressure 143/81, pulse 107. The patient is currently undergoing cardiopulmonary resuscitation and is being transferred to intensive care unit. The patient remained unresponsive. Physical examination will be deferred until the patient is stable in intensive care unit. ASSESSMENT: 1. Altered mental status of unclear etiology. 2. Cardiac arrest and the patient underwent cardiopulmonary resuscitation for 10-15 minutes and is being transferred to intensive care unit. 3. UTI-on Ceftriaxone. Rule out TTP and Sepsis. PLAN: 1. Repeat CT scan of head and EEG. All of her scans have been unremarkable so far except stable postsurgical changes and EEG earlier today showed encephalopathy. 2. Confirm doses of her psychiatric medications. Consider spinal tap if no other cause of her altered mental status is found. CATHI
[2020-02-06] MEDS: KCL 10MEQ/100ML SWI (KRUN) 10 MEQ in IV 1 EA IV SCH ×2 (10:35→12:08)
[2020-02-06] MEDS: MAG SULF 1GM/100ML (MAG RUN) 1 GM in IV 1 EA IV SCH ×4 (10:40→14:28)
--- NOTE | 2020-02-06 13:12 | CCN ---
DATE: 02/06/2020 The patient was seen and examined this morning during bedside rounds. Overnight, the patient had a low grade temperature and was placed on a cooling blanket. Her T-max was 99, but with the cooling blanket, she was able to be brought down to 95 or 96 degrees rectally. The patient continues to be minimally responsive to painful stimuli. She is overbreathing the vent more and that she has been requiring as needed Versed for tube biting and mouth of the endotracheal (ET) tube. She is not opening her eyes to voice or tracking. She does occasionally have episodes of posturing when she is responding to noxious stimuli. The patient was able to be weaned off of Levophed yesterday evening. PHYSICAL EXAMINATION: Temperature 97.7, pulse 103, respirations 31, blood pressure 115/20, O2 sat 98% on 50% FIO2. Ins: 4.5 liters. Out: 1 liter. General: The patient is intubated and on Versed as needed for sedation. She is minimally responsive to noxious stimuli. She appears to have some posturing and withdrawal to painful stimuli. HEENT: Normocephalic, atraumatic. Pupils are reactive to light bilaterally this morning. She has a gag reflex noted as well as a corneal reflex. There continues to be some blood noticed in her mouth as well as bloody secretions from her endotracheal tube. Neck: Supple. Trachea is midline. No palpable cervical adenopathy. No jugular venous distention (JVD). There is a right internal jugular (IJ) triple lumen in place. Cardiac: Tachycardiac, regular rate and rhythm. Normal S1, S2. Unable to appreciate murmurs. Pulmonary: There are coarse ventilated breath sounds bilaterally with some diminished breath sounds, more at the left base. No wheezing or rales. Abdomen is soft, nontender, nondistended. No palpable masses. Extremities: There is no significant lower extremity edema bilaterally. LABS: WBC is 18.0, hemoglobin 11.4 and platelets 93. Chemistry: Sodium is 140, potassium 3.4, chloride is 107, bicarb 27, BUN 6, creatinine 0.40, glucose 104. Calcium 7.4. Magnesium is 1.5. Lactic acid trended down to 3.0. AST and ALT 189 and 130. Total bilirubin increased to 1.7. Troponin was 0.07. Albumin 2.2. ABG: pH 7.490, pCO2 of 33.8, and pO2 of 146.4. IMAGING: Chest x-ray this morning shows ET tube in good position. There is an orogastric (OG) tube in place below the left hemidiaphragm. There is a right IJ triple lumen in place. There is mild gaseous distention of the stomach. There is a dense infiltrate in the left upper lobe with air bronchograms and some improvement in the left lower lobe opacity. ASSESSMENT AND PLAN: Ms. Jeremy Alejandro is a 59-year-old female with a past medical history of bipolar disorder, migraines, seizure disorder, with previous surgical craniotomy for a colloid cyst removal, hyperlipidemia and obesity who had presented initially with complaints of altered mental status. The patient had apparently missed visits with her psychiatrist and had been noncompliant with her medications. She was found at home on the floor by EMS for an unknown period of time. On admission, she was noted to have some electrolyte abnormalities and dehydration secondary to decreased by mouth intake. The patient was also found to have a urinalysis (UA) which had shown evidence of cystitis and she was started on ceftriaxone the day of her transfer to the intensive care unit (ICU). The patient was noted to be more lethargic and unresponsive earlier in the day. She had a repeat head CT performed and upon return from imaging she was noted to be apneic and in pulseless electrical activity (PEA) arrest. The patient had cardiopulmonary resuscitation (CPR) started and had return of spontaneous circulation (ROSC) achieved after approximately 15 minutes. The patient was intubated during her cardiac arrest and placed on mechanical ventilation. She was transferred to the ICU for further management where she had placement of a right IJ triple lumen catheter and was initially started on Levophed for blood pressure support. Neurologic: Patient with encephalopathy possibly in the setting of sepsis. The patient also has history of seizure disorder and had been noncompliant with her medications. She was reportedly noted to have horizontal nystagmus the day of her cardiac arrest earlier in the morning. The patient does have a chronic left frontal encephalomalacia as a potential focus for seizures. - The patient had an EEG done prior to her cardiac arrest. Will followup with the results of her EEG and will repeat another EEG post arrest given her encephalopathy and concern for potential seizure activity. - The patient did have an elevated prolactin level yesterday. However, this was drawn post cardiac arrest which can also cause an increased prolactin besides seizures. - Will continue the patient on Lamictal. - Will repeat a head CT post arrest for evaluation of any anoxic injury. - Patient is not a candidate for hypothermia protocol, but she has been maintained normothermic overnight with cooling blankets. - Will continue with Versed and will place the patient on a Versed drip and titrate for a Lazara of 2-3. - The patient appears to have brain stem reflexes, although she is not opening eyes spontaneously or to command and is not tracking. She appears to have some withdrawal and posturing to noxious stimuli. Suspect she does have a component of anoxic injury contributing to her continued encephalopathy. Cardiac: The patient with PEA arrest likely in the setting of an acute respiratory arrest as the initial event was secondary to altered mental status and respiratory depression. - Post arrest, the patient x-ray had shown a focal area of opacity in left upper lobe with air bronchograms and in the left lower lobe suspicious for a possible pneumonia. She does have some bloody output from her OG tube. - The patient's antibiotics were broadened from ceftriaxone to Zosyn. Will followup results of methicillin-resistant Staphylococcus aureus (MRSA) screen as well. - Will followup her sputum culture as well as her urine culture. Her UA was positive. - The patient had a right IJ triple lumen placed on 02/05/2020 and was started on Levophed for vasopressor support. She has since been weaned off of the Levophed and has been maintaining MAPs above 65. - The patient was given IV fluid boluses at 30 mL/kg for sepsis protocol post arrest. She was given IV maintenance fluids as well which will be discontinued. - Will followup results of her echocardiogram. Her cardiac enzymes did not have any significant trend. Pulmonary: The patient was intubated during her cardiac arrest. She is currently on mechanical ventilation with settings of PRVC. - Will continue PRVC and will continue to wean down her PEEP and FIO2 as tolerated. She will be on settings of 380/18/50/6. - Continue with daily ABGs and chest x-rays while intubated. - Continue vent bundle care with head of bed elevation and chlorhexidine mouthwash. - Continue with broad-spectrum antibiotics with Zosyn and will followup results of her sputum culture and MRSA screen. GI: The patient post arrest had some dark output from her OG tube. - The output from the OG tube has decreased. Will attempt to start the patient on tube feeds at a low rate and titrate up as tolerated with monitoring residuals. - Will continue with proton pump inhibitor (PPI) twice a day. - The patient had transaminitis post arrest likely secondary to shock liver which has been trending down. Her bilirubin is slightly elevated, will continue to monitor. Renal: The patient initially with a metabolic and respiratory acidosis with a lactic acidosis and cardiac arrest. Her repeat lactic acid trended down and her acidosis has resolved. - The patient has a Singh catheter in place for monitoring of ins and outs. - Will continue to monitor electrolytes and replete as needed. She is hypokalemic and hypomagnesemic today. - Will discontinue maintenance IV fluids as the patient will be started on tube feeds. Will give p.r.n. IV fluid boluses as needed - Patient with hyperglycemia. She was started on fingerstick glucose checks every 4 hours and sliding scale insulin coverage with the improvement in her hyperglycemia. Heme: Patient has some thrombocytopenia likely in the setting of sepsis. patient also had anemia. - Will continue monitor hemoglobin as well as platelets. Continue deep vein thrombosis (DVT) prophylaxis. Lovenox. GI prophylaxis. PPI. Code Status: Full code. The patient's son Ricardo Lnua was updated as to her clinical status today. His number is . Will continue to followup with her son about goals of care. Total critical care time spent, not including procedures, approximately 45 minutes. MTDD
[2020-02-06 14:55] LABS: BLOOD UREA NITROGEN 4 MG/DL (7-18); CALCIUM LEVEL 7.3 MG/DL (8.5-10.1); CARBON DIOXIDE LEVEL 27 MEQ/L (21-32); CHLORIDE LEVEL 111 MEQ/L (98-107); CREATININE FOR GFR 0.36 MG/DL (0.55-1.30); GLOMERULAR FILTRATION RATE > 60.0 (>51); GLUCOSE, FASTING 113 MG/DL (70-100); POTASSIUM SERUM 3.5 MEQ/L (3.5-5.1); SODIUM LEVEL 145 MEQ/L (136-145)
[2020-02-06] MEDS: NOREPINEPHRINE BITARTRATE 8 MG in D5W 492 ML IV SCH ×2 (15:32→20:10)
[2020-02-06] MEDS ORDERED: NS 1,000 ML IV ONE (16:45)
--- NOTE | 2020-02-06 16:55 | IPN ---
DATE: 02/06/2020 The patient remains intubated, status post cardiac arrest yesterday. Overnight she remains on the cooling blanket, IV Zosyn and Levophed for full support. The patient was noted to have a urinary tract infection (UTI) and pneumonia. EEG pending to rule out seizure. Temperature 97.7, status post Levophed, pulse 103, sinus, respiratory rate 31, blood pressure 115/80, 98% on ventilator, FiO2 50%, Generally, patient is sedated. Orogastric tube and endotracheal (ET) tube in place. Lungs are diminished. Heart: S1, S2, sinus tachycardia. Abdomen is soft, nontender, nondistended. Extremities: No cyanosis or clubbing. Skin: With central venous catheter noted, site clean and dry. No drainage. LABORATORY DATA: White count 18, hemoglobin 11, hematocrit 33, platelet count 93. Sodium 140, potassium 3.4, chloride 107, bicarbonate 27, BUN 6, creatinine 0.4, glucose 104, magnesium of 1.5. IMAGING STUDIES: Chest x-ray, 02/05/2020: Right central venous catheter, SVC in the right atrium. No pneumothorax. ET tube is 3 cm above the nicole. Left upper and lower lobe infiltrate. Right lung is unchanged. Urine culture pending. Blood culture and sputum cultures are pending. ASSESSMENT AND PLAN: This is a 59-year-old admitted on 02/03/2020 with a history of bipolar disorder, migraine, hyperlipidemia, obesity, found to have altered mental status, missed several appointments with her psychiatrist when she ran out of medications, patient arrested and was successfully resuscitated with the following current issues: 1. Urinary tract infection. 2. Pneumonia. 3. History of seizure disorder. 4. Pulseless electrical activity (PEA), status post cardiac arrest. 5. Acute metabolic encephalopathy with history of chronic left frontal encephalomalacia. 6. Acute respiratory failure, status post PEA and cardiac arrest. 7. Hypo-electrolyte abnormalities with hypokalemia, hypomagnesemia. 8. Sepsis secondary to pneumonia and urinary tract infection. Plan: The patient is continued on full supportive care, broad-spectrum antibiotics with Zosyn to cover both pneumonia and UTI/cystitis. Toll Line Inspector, Dr. Lian Khoury, is managing patient's respiratory failure, currently on mechanical ventilation and sedated, on midazolam. Potassium and magnesium have been supplemented. Awaiting results of the EEG and echocardiogram. She is continued on her home dose of Lamictal. Guarded prognosis. She remains with a cooling blanket. [facility]
[2020-02-06] MEDS: ENOXAPARIN 30MG/0.3ML SYRINGE (J1650 PER 10MG) SC SCH (20:09)
[2020-02-06] MEDS: ACETAMINOPHEN TAB 650MG DOSE (2X325MG) PO PRN (22:57)
[2020-02-06 22:59] LABS: MAGNESIUM LEVEL 2.3 MG/DL (1.8-2.4)
[2020-02-07] VITALS (57 sets, daily range): BP systolic 76–152; BP diastolic 44–78; O2SAT 100
[2020-02-07] MEDS: HumaLOG INSULIN (NovoLOG) PER UNIT SC SCH ×6 (01:00→20:23)
[2020-02-07] MEDS: PIPERACILLIN/TAZOBACTAM SOD 3.375 GM in D5W MINI-BAG PLUS 50 ML IV SCH ×4 (01:19→19:57)
[2020-02-07 02:53] LABS: BLOOD UREA NITROGEN 5 MG/DL (7-18); CARBON DIOXIDE LEVEL 27 MEQ/L (21-32); CHLORIDE LEVEL 111 MEQ/L (98-107); CREATININE FOR GFR 0.41 MG/DL (0.55-1.30); GLOMERULAR FILTRATION RATE > 60.0 (>51); GLUCOSE, FASTING 107 MG/DL (70-100); POTASSIUM SERUM 3.4 MEQ/L (3.5-5.1); SODIUM LEVEL 146 MEQ/L (136-145)
[2020-02-07 05:04] LABS: BASO % 0.1 % (0.0-1.0); EOS # 0.1 10^3/uL (0.0-0.5); EOS % 0.8 % (0.0-3.0); HEMATOCRIT 29.5 % (36.0-47.0); HEMOGLOBIN 9.8 g/dl (12.0-15.5); LYMPH # 1.5 10^3/uL (1.5-5.0); LYMPH % 9.8 % (24.0-44.0); MEAN CORPUSCULAR HEMOGLOBIN 27.8 pg (27.0-33.0); MEAN CORPUSCULAR HGB CONC 33.2 g/dl (32.0-36.5); MEAN CORPUSCULAR VOLUME 83.6 fl (80.0-96.0); MONO # 0.8 10^3/uL (0.0-0.8); MONO % 4.8 % (0.0-5.0); NEUTROPHILS # 12.9 10^3/uL (1.5-8.5); NEUTROPHILS % 83.7 % (36.0-66.0); PLATELET COUNT, AUTOMATED 81 10^3/uL (150-450); RED BLOOD COUNT 3.53 10^6/uL (4.00-5.40); WHITE BLOOD COUNT 15.5 10^3/uL (4.0-10.0)
[2020-02-07] MEDS: SLF 3 ML SYR IV SCH ×3 (05:10→20:24)
[2020-02-07 05:42] LABS: ALT/SGPT 82 U/L (12-78); BILIRUBIN,TOTAL 1.4 MG/DL (0.2-1.0); BLOOD UREA NITROGEN 5 MG/DL (7-18); CALCIUM LEVEL 7.2 MG/DL (8.5-10.1); CARBON DIOXIDE LEVEL 27 MEQ/L (21-32); CHLORIDE LEVEL 109 MEQ/L (98-107); CREATININE FOR GFR 0.42 MG/DL (0.55-1.30); GLOMERULAR FILTRATION RATE > 60.0 (>51); GLUCOSE, FASTING 110 MG/DL (70-100); MAGNESIUM LEVEL 2.3 MG/DL (1.8-2.4); POTASSIUM SERUM 3.4 MEQ/L (3.5-5.1); SODIUM LEVEL 141 MEQ/L (136-145); TOTAL PROTEIN 4.3 GM/DL (6.4-8.2)
[2020-02-07 06:06] LABS: ABG BASE EXCESS 0.9 (-2.0-2.0); ABG HCO3 23.7 MEQ/L (22.0-26.0); ABG O2 SATURATION 99.4 % (95.0-99.0); ABG PARTIAL PRESSURE CO2 31.5 mmHg (35.0-45.0); ABG PARTIAL PRESSURE O2 180.9 mmHg (75.0-100.0); ABG STANDARD HCO3 25.3 MEQ/L (22.0-26.0); ABG TOTAL CO2 24.7 MEQ/L (22.0-29.0); ABG pH (ARTERIAL) 7.495 UNITS (7.350-7.450)
[2020-02-07] MEDS: ACETAMINOPHEN TAB 650MG DOSE (2X325MG) PO PRN (06:51)
[2020-02-07] MEDS: MIDAZOLAM HCL 100 MG in D5W 80 ML IV SCH (07:47)
--- NOTE | 2020-02-07 07:59 | REP ---
Portable chest x-ray: Single view. History: Intubated patient. Comparison chest x-ray: February 06, 2020 and February 05, 2020. Findings: Endotracheal tube is seen in good position at the level of the proximal clavicles. A nasogastric tube enters the left upper quadrant. A right internal jugular central venous line is again noted in place unchanged. Monitoring electrodes and oxygen delivery tubing are seen. There is an infiltrate in the left upper lobe which is improved in density. No new infiltrate. Electronically Signed by Rey Mims MD 02/07/2020 07:50 A
[2020-02-07 08:42] LABS: BLOOD UREA NITROGEN 5 MG/DL (7-18); CALCIUM LEVEL 7.5 MG/DL (8.5-10.1); CARBON DIOXIDE LEVEL 28 MEQ/L (21-32); CHLORIDE LEVEL 109 MEQ/L (98-107); CREATININE FOR GFR 0.43 MG/DL (0.55-1.30); GLOMERULAR FILTRATION RATE > 60.0 (>51); GLUCOSE, FASTING 116 MG/DL (70-100); POTASSIUM SERUM 3.4 MEQ/L (3.5-5.1); SODIUM LEVEL 144 MEQ/L (136-145)
[2020-02-07] MEDS: lamoTRIgine 100MG TAB PO SCH (10:05)
[2020-02-07] MEDS: CHLORHEXIDINE GLUCONATE 0.12 % 15ML UDC (PERIDEX ORAL RINSE) MT SCH ×2 (10:05→20:23)
[2020-02-07] MEDS: POTASSIUM CHLORIDE 10 MEQ SR TABLET PO SCH (10:06)
[2020-02-07] MEDS: PANTOPRAZOLE 40MG VIAL (C9113 PER 1) IV SCH ×2 (10:07→19:57)
[2020-02-07] MEDS: MAGIC MOUTHWASH SUSPENSION BTL SS SCH ×2 (10:07→20:24)
[2020-02-07 10:40] LABS: INR 1.44; PROTHROMBIN TIME 17.3 SECONDS (11.8-14.0)
[2020-02-07 10:41] LABS: PARTIAL THROMBOPLASTIN TIME 28.9 SECONDS (25.0-38.4)
[2020-02-07] MEDS ORDERED: NS 1,000 ML IV ONE (12:15)
[2020-02-07] MEDS ORDERED: IBUPROFEN 100 MG/5 ML SUSP UDC DYE FREE PO ONE (12:15)
--- NOTE | 2020-02-07 13:00 | CCN ---
DATE: 02/07/2020 The patient was seen and examined this morning during bedside rounds. Overnight, the patient was noted to have an increased temperature with a T-max of 99.7. She was given Tylenol p.r.n. for fevers as well as ice packs for cooling. She was also started on tube feeds yesterday, however, was noted to have increased residuals this morning and her tube feeds were on hold. The patient is on Versed for sedation. Yesterday, she did require low dose of Levophed up to around 4 mcg/min. Yesterday, the patient would periodically come off of Levophed for brief periods of time and then need to be restarted on low dose. She was taken off of Levophed early this morning again. PHYSICAL EXAMINATION: Temperature T-max 99.7, pulse 101, respirations 18, blood pressure was 108/74, O2 sat 98% on 45% FiO2. Ins 3.7 liters, out 1.9 liters, net positive 1.3 liters. General: The patient is intubated and is on Versed for sedation. She is minimally responsive to noxious stimuli. She is not opening her eyes spontaneously and not following commands. HEENT: Normocephalic, atraumatic. Pupils are sluggishly reactive to light bilaterally. The patient has a gag reflex noted. The patient was biting and clamping down on her endotracheal (ET) tube and her tongue and had caused a laceration of her tongue. She does have some bloody secretions in her mouth. Neck is supple. Trachea is midline. No palpable cervical adenopathy. No jugular venous distention (JVD). There is a right IJ triple lumen placed. Cardiac: Tachycardic. Normal S1, S2. Unable to appreciate murmurs. Pulmonary: There are coarse ventilated breath sounds bilaterally with no significant wheezing or rales. Abdomen: Soft, nontender, nondistended. No palpable masses. Extremities: There is no significant lower extremity edema bilaterally. LABORATORY DATA: WBC 15.5, hemoglobin 9.8 and platelets 81. Chemistry: Sodium is 141, potassium 3.4, chloride 109, bicarb 27, BUN 5, creatinine 0.42, glucose is 110, AST and ALT 82 and 82, alkaline phosphatase 86, total bilirubin trending down at 1.4, albumin is 2. ABG: pH 7.495, pCO2 of 31.5 and, pO2 of 180.9. Microbiology: Sputum culture showed normal fabio. Urine culture is pending. IMAGING: Chest x-ray Shows ET tube and orogastric (OG) tube in good position. There is a right IJ triple lumen in place. The left upper lobe opacity appears somewhat improved. Head CT yesterday shows some loss of gomez white matter differentiation, suspect ischemic encephalopathy. ASSESSMENT AND PLAN: Ms. Jeremy Alejandro is a 59-year-old female with a history of bipolar disorder, migraine, seizure disorder, with previous surgical craniotomy for colloid colon cyst removals, hyperlipidemia, and obesity who presented initially with metabolic encephalopathy. The patient reportedly had been noncompliant with medications and had missed visits with her psychiatrist. She was found down on the floor at home for an unknown period of time by EMS. Initially on admission, the patient was noted to be dehydrated as well as with some electrolyte abnormalities. She also was found to have a urinary tract infection (UTI) and was initially started on ceftriaxone. Later that day, however, the patient was more lethargic and unresponsive. She had a repeat CT performed which showed chronic changes. Upon return from imaging, the patient was noted to be apneic and in pulseless electrical activity (PEA) arrest. The patient had cardiopulmonary resuscitation (CPR) performed with return of spontaneous circulation (ROSC) after approximately 15 minutes. She was intubated during her cardiac arrest and placed on mechanical ventilation. The patient was transferred to the intensive care unit (ICU) for further management where she had placement of a right IJ triple lumen catheter for vasopressor support. Neurologic: Patient with encephalopathy possibly in the setting of sepsis from UTI. Her electroencephalogram prior to her cardiac arrest had shown diffuse encephalopathic pattern with no epileptiform activity. She does also have a history of seizure disorder and various psychiatric disorders and had been noncompliant on her medication prior to her admission. The patient's initial head CT and MRI had shown chronic changes related to her craniotomy with the left frontal encephalomalacia. - Post arrest, the patient's head CT had shown some loss of gomez white matter differentiation consistent with anoxic injury. She is encephalopathic post arrest likely secondary to anoxic brain injury. The patient was not a candidate for hypothermia protocol, but she was being maintained normothermic with Tylenol and cooling blankets. The patient has been having fevers, however, and so it is requiring more Tylenol p.r.n. and will also given ibuprofen p.r.n. - The patient had a repeat EEG done post arrest, the results of which are still pending. - The patient did have elevated prolactin level post arrest which may be in the setting of seizures, but also from the cardiac arrest itself. - Will continue Lamictal, her home medication for seizures. - Will continue the patient on Versed drip for sedation. - The patient does have some posturing occasionally and appears to be clamping down very hard on her ET tube as well as on her tongue causing some injury. She may need p.r.n. paralytics to open her jaw. She does have a bite guard in currently. Cardiac: The patient with a PEA arrest likely in the setting of an acute respiratory arrest as the initial event secondary to altered mental status and respiratory depression. - The patient was noted post arrest to have opacities in the left upper lobe and left lower lobe suspicious for a possible aspiration pneumonia. She did have some bloody output from her ET tube post arrest. - The patient was also in shock post arrest likely secondary to sepsis. She had a right IJ triple lumen placed on 02/05/2020 and has been requiring Levophed off and on for blood pressure support to maintain a MAP above 65. - The patient did receive IV fluid boluses initially for sepsis protocol. She continues to receive p.r.n. IV fluid boluses as needed for hypotension. - The patient's echocardiogram post arrest showed a hyperdynamic left and right ventricle with normal diastolic function. There was no pericardial effusion and no significant valvular pathology. Pulmonary: The patient was intubated during her cardiac arrest. She is currently on mechanical ventilation with settings of PRVC. - The patient is on broad-spectrum antibiotics for possible aspiration pneumonia as well as UTI with Zosyn. Her sputum culture was negative and her blood cultures have been no growth to date. The patient's urine culture is still pending. - Will continue the patient on broad-spectrum antibiotics and de-escalate as tolerated. She does continue have fevers, however, so this may also be central in etiology. - Will continue daily ABGs and chest x-rays while intubated. - Continue vent bundle care with head of bed elevation and chlorhexidine mouthwash. - Continue the patient on PRVC with settings of 380/18/45/6. GI: The patient had some dark output from her OG tube initially after her arrest. She was then started on tube feeds yesterday. She was noted to have increased residuals and so they were on hold this morning. - The patient is still on proton pump inhibitor (PPI) twice a day. - The patient had transaminitis post arrest likely secondary shock liver which has been trending down. Renal: The patient initially with a metabolic and respiratory acidosis with lactic acidosis secondary to her cardiac arrest. Her acidosis has improved. - The patient has a Singh catheter in place for monitoring of ins and outs. She has had somewhat decreased urine output this morning. Will give her a bolus of IV normal saline. - Will continue to monitor electrolytes and replete as needed - Will continue the patient on fingerstick glucose checks with a sliding scale insulin coverage as needed. Heme: Patient with thrombocytopenia likely in the setting of sepsis. The patient had coagulation studies checked this morning which showed elevated fibrinogen, not consistent with DIC and only mild increase in PT and INR. - Will continue to monitor the patient's hemoglobin and platelet levels and transfuse as needed. Deep vein thrombosis (DVT) prophylaxis. Lovenox. Gastrointestinal (GI) prophylaxis. PPI. Code Status. Full code. The patient's son, Ricardo Luna, was updated today as to her clinical status. She has a daughter as well who has come up to see the patient this afternoon. Another daughter has history of traumatic brain injury and so may be unable to visit her in the hospital. Will plan for a family meeting tomorrow with the patient's son Ricardo and another daughter to discuss goals of care. Total critical care time spent not including procedures approximately 45 minutes. MTDD
[2020-02-07] MEDS: NOREPINEPHRINE BITARTRATE 8 MG in D5W 492 ML IV SCH ×3 (17:50→20:10)
[2020-02-07] MEDS: ENOXAPARIN 30MG/0.3ML SYRINGE (J1650 PER 10MG) SC SCH (20:23)
[2020-02-08] VITALS (37 sets, daily range): BP systolic 81–131; BP diastolic 49–99
[2020-02-08] MEDS: HumaLOG INSULIN (NovoLOG) PER UNIT SC SCH ×6 (00:26→20:09)
[2020-02-08] MEDS: PIPERACILLIN/TAZOBACTAM SOD 3.375 GM in D5W MINI-BAG PLUS 50 ML IV SCH ×2 (00:57→06:01)
[2020-02-08] MEDS: SLF 3 ML SYR IV SCH ×3 (04:39→21:14)
[2020-02-08 05:22] LABS: BASO % 0.2 % (0.0-1.0); EOS # 0.1 10^3/uL (0.0-0.5); EOS % 1.2 % (0.0-3.0); HEMATOCRIT 24.6 % (36.0-47.0); HEMOGLOBIN 8.2 g/dl (12.0-15.5); LYMPH # 1.1 10^3/uL (1.5-5.0); LYMPH % 9.1 % (24.0-44.0); MEAN CORPUSCULAR HEMOGLOBIN 28.2 pg (27.0-33.0); MEAN CORPUSCULAR HGB CONC 33.3 g/dl (32.0-36.5); MEAN CORPUSCULAR VOLUME 84.5 fl (80.0-96.0); MONO # 0.8 10^3/uL (0.0-0.8); MONO % 6.7 % (0.0-5.0); NEUTROPHILS # 9.5 10^3/uL (1.5-8.5); NEUTROPHILS % 80.8 % (36.0-66.0); RED BLOOD COUNT 2.91 10^6/uL (4.00-5.40); WHITE BLOOD COUNT 11.8 10^3/uL (4.0-10.0)
[2020-02-08 05:24] LABS: PLATELET COUNT, AUTOMATED 66 10^3/uL (150-450)
[2020-02-08 05:48] LABS: ALBUMIN 1.7 GM/DL (3.2-5.2); ALT/SGPT 54 U/L (12-78); BLOOD UREA NITROGEN 8 MG/DL (7-18); CALCIUM LEVEL 7.2 MG/DL (8.5-10.1); CARBON DIOXIDE LEVEL 27 MEQ/L (21-32); CHLORIDE LEVEL 109 MEQ/L (98-107); CREATININE FOR GFR 0.45 MG/DL (0.55-1.30); GLOMERULAR FILTRATION RATE > 60.0 (>51); GLUCOSE, FASTING 132 MG/DL (70-100); MAGNESIUM LEVEL 2.1 MG/DL (1.8-2.4); POTASSIUM SERUM 2.8 MEQ/L (3.5-5.1); SODIUM LEVEL 141 MEQ/L (136-145); TOTAL PROTEIN 4.4 GM/DL (6.4-8.2)
[2020-02-08 05:58] LABS: ABG BASE EXCESS 3.6 (-2.0-2.0); ABG HCO3 25.7 MEQ/L (22.0-26.0); ABG O2 SATURATION 99.5 % (95.0-99.0); ABG PARTIAL PRESSURE O2 180.2 mmHg (75.0-100.0); ABG STANDARD HCO3 27.7 MEQ/L (22.0-26.0); ABG TOTAL CO2 26.6 MEQ/L (22.0-29.0); ABG pH (ARTERIAL) 7.565 UNITS (7.350-7.450)
[2020-02-08] MEDS ORDERED: POTASSIUM CHLORIDE 10 MEQ SR TABLET PO ONE (06:00)
[2020-02-08] MEDS: MIDAZOLAM HCL 100 MG in D5W 80 ML IV SCH ×2 (06:10→19:20)
[2020-02-08] MEDS: KCL 20MEQ IN 100ML SWI (KRUN) 20 MEQ in IV 1 EA IV SCH ×4 (06:16→07:10)
[2020-02-08] MEDS: PANTOPRAZOLE 40MG VIAL (C9113 PER 1) IV SCH (07:10)
--- NOTE | 2020-02-08 08:04 | REP ---
Portable chest x-ray: Single view. History: Intubated patient. Comparison study: February 07, 2020. Findings: The endotracheal tube remains in good position at the level of proximal clavicles. NG tube enters left upper quadrant of the abdomen. Right IJ line terminates in the expected location of the superior vena cava. There is increased density in the left base obscuring left hemidiaphragm suggesting developing effusion. Question atelectasis left lower lobe. Remaining lung hook are clear. Electronically Signed by Rey Mims MD 02/08/2020 07:55 A
[2020-02-08] MEDS: MAGIC MOUTHWASH SUSPENSION BTL SS SCH (09:00)
[2020-02-08] MEDS: lamoTRIgine 100MG TAB PO SCH (09:10)
[2020-02-08] MEDS: CHLORHEXIDINE GLUCONATE 0.12 % 15ML UDC (PERIDEX ORAL RINSE) MT SCH ×2 (09:10→20:09)
[2020-02-08] MEDS: POTASSIUM CHLORIDE 10% LIQ 20 MEQ/15 ML UDC PO SCH (09:10)
[2020-02-08] MEDS: FAMOTIDINE IV BAG 20 MG in IV 1 EA IV SCH ×2 (09:14→21:14)
--- NOTE | 2020-02-08 10:28 | EEG ---
DATE OF PROCEDURE: 02/06/2020 REFERRING PHYSICIAN: Dr. Lian Khoury. DIAGNOSIS: Coma, anoxic brain injury. EEG#: [id number] HISTORY: The patient is a 59-year-old woman who had a cardiac arrest and underwent cardiopulmonary resuscitation for 15 minutes. She is on mechanical ventilator sedated and remains unresponsive. She is currently on Zosyn, ceftriaxone, Versed, lamotrigine norepinephrine infusion, etc. TECHNICAL DESCRIPTION: This digital EEG was recorded by 21 scalp, ear and two EKG electrodes and was reviewed in bipolar and referential montages following reformatting 10-20 international electrode placement system. INTERPRETATION: The patient remained on mechanical ventilation unresponsive and Versed was discontinued during the setting of this study. Background rhythm consisted of 20 Hz beta activity measuring 10-20 microvolts in amplitude which was symmetric bilaterally. No sleep was achieved. Photic stimulation remained unremarkable. Hyperventilation could not be performed. EKG revealed sinus tachycardia. Excessive muscle artifact was noted in bilateral frontal and temporal head regions almost continuously during this EEG. No focal, lateralizing or epileptiform abnormalities were seen. No relevant clinical activity was noted. CONCLUSION: This EEG in a mechanically ventilated, sedated patient is abnormal due to presence of generalized beta activity consistent with nonspecific diffuse cerebral dysfunction such as seen in encephalopathy due to multiple potential causes including hypoxic, anoxic, medication related, toxic, infectious or multifocal structural brain abnormalities. Clinical correlation is recommended.
[2020-02-08] MEDS: cefTRIAXone SOD 1 GM in D5W MINI-BAG PLUS 50 ML IV SCH ×2 (12:15→23:31)
[2020-02-08] MEDS ORDERED: NS 500 ML IV ONE (12:45)
--- NOTE | 2020-02-08 13:21 | CCN ---
DATE: 02/08/2020 The patient was seen and examined this morning during bedside rounds. Yesterday afternoon, the patient maps were below 65 and she required restarting of the Levophed. This morning she was again able to be weaned off of Levophed. The maximal was 4 mcg a minute. Off of Levophed, however, her blood pressures are somewhat on the softer side still. The patient has also been having hypoactive bowel sounds and difficulty tolerating tube feeds with high residuals. PHYSICAL EXAM: Temperature 96.8, pulse 59, respirations 18, blood pressure 108/63, O2 sat 100% percent on 40% FiO2. In 647, out 795. GENERAL: Patient is intubated and is on Versed for sedation. She is minimally responsive to noxious stimuli. She is not opening her eyes spontaneously and is not following commands. HEENT: Normocephalic, atraumatic. Pupils are somewhat pinpoint and sluggishly reactive to light bilaterally. The patient has a weak gag reflex noted. She does not appear to be biting or clamping down her endotracheal tube. She has some dried blood secretions in her mouth. NECK: Neck is supple. Trachea is midline. No palpable cervical adenopathy. No jugular venous distention (JVD) noted. There is a right IJ triple lumen in place. CARDIAC: Regular rate and rhythm. Normal S1, S2. Unable to appreciate murmurs. PULMONARY: There is some coarse ventilated breath sounds bilaterally with no significant rhonchi or wheezes. There is diminished breath sounds on the left base. ABDOMEN: Soft, nontender, nondistended. There is hypoactive bowel sounds present. There is no palpable masses. EXTREMITIES: There is no significant lower extremity edema in the bilateral lower extremities. There is some mild edema in her upper extremities. LABS: WBC 11.8, platelets 66. Chemistry sodium is 141, potassium 2.8, chloride is 109, bicarb is 27, BUN 8 creatinine 0.45, glucose is 132, calcium 7.2, magnesium 2.1, AST 96, ALT 54 T-bili 1.0, albumin is 1.7. ABG: pH 7.565, pCO2 of 29, pO2 of 180.2. IMAGING STUDIES: Chest x-ray Shows some atelectasis and likely small effusion in the left base. There is improvement in the left upper lobe opacity. There is an endotracheal (ET) tube in orogastric (OG) tube in place a right internal jugular (IJ) triple lumen in place. ASSESSMENT/PLAN: Ms. Jeremy Alejandro is a 59-year female with a history bipolar disorder, migraine, seizure disorder with previous surgical craniotomy for colloid cyst removal, hyperlipidemia and obesity who presented with a metabolic encephalopathy. The patient had been found down on the floor at home for an unknown period of time by emergency medical services (EMS). She was initially thought to have encephalopathy in the setting of dehydration as well as some electrolyte abnormalities. The patient also had been noncompliant with seizure medications and may have had a component of seizure as well. She was then noted to be more lethargic and unresponsive. Her urinalysis (UA) appear positive for urinary tract infection (UTI) and she was started on antibiotics. The patient was later noted to be apneic and in PEA arrest on the date of 02/05/2020. She had cardiopulmonary resuscitation (CPR) performed with return or spontaneous circulation (ROSC) achieved after approximately 15 minutes. The patient was intubated during her cardiac arrest and placed on mechanical ventilation. She was transferred to the medical intensive care unit (ICU) for further management. The patient had a right IJ triple lumen placed for vasopressor support. Neurologic: Patient initially with encephalopathy possibly in the setting of sepsis from UTI as well as with a history of noncompliance for her home psychiatric and seizure medications. The patient post arrest has continued encephalopathy likely due to anoxic brain injury. Her repeat CT head which was performed less than 24 hours after her cardiac arrest had shown loss of gomez/white matter differentiation consistent with anoxic injury. Her repeat EEG also showed generalized evidence of encephalopathy with no focal epileptiform activity. - Will continue the patient with Versed for sedation. She initially was requiring a Versed drip as she was clamping and biting on her tongue and the ET tube as well as having some posturing movements and asynchrony on the ventilator. The patient has not had any further clamping and she is only triggering the vent occasionally now. Would wean down Versed and consider using Versed as needed for sedation. - Will continue to monitor her neural status. The patient does have brain stem reflexes currently although somewhat not as robust as previous. - Will continue with daily sedation vacation and monitoring of neural status. Cardiac: The patient with history PE arrest likely in setting of acute respiratory arrest and the initial event secondary to altered mental status and possible respiratory depression and hypoventilation. - Post arrest. The patient did have opacities the left upper lobe and left lower lobe suspicious for aspiration pneumonia. She did have some bloody output from her ET tube initially - The patient was requiring Levophed for vasopressor support post arrest, possibly in the setting of sepsis. She has been requiring of Levophed off and on to maintain a MAP above 65. - Will give the patient additional 500 mL normal saline fluid bolus. - The patient's echocardiogram post arrest had shown hyperdynamic left and right ventricle with normal diastolic function. There is no pericardial effusion in no significant valvular pathology. Pulmonary: The patient was intubated during her cardiac arrest. She has currently on mechanical ventilation with PRVC. - Will continue daily ABGs and chest x-rays while intubated. - The patient is on PRVC. Will reduce respiratory rate as she does have evidence of a respiratory alkalosis to 380/16/40 and 6. - Will continue with vent bundle care with head elevation and chlorhexidine mouthwash. - The patient was initially on broad-spectrum antibiotics for possible aspiration pneumonia as well as a UTI with Zosyn. Her sputum cultures were negative and her urine culture was now positive for Hafnia paralvei. Based on sensitivities will change her from Zosyn to ceftriaxone. GI: The patient initially had some dark output from her OG tube consistent with a possible coffee ground. She was started on twice a day proton pump inhibitor (PPI) for possible component of GI bleed. - The patient was started on tube feeds, however has been having difficulty tolerating tube feeds due to have high residuals. Will start trophic tube feeds and continue monitor closely for residuals. - will change her PPI to famotidine twice a day as this may potentially be contributing to some of her thrombocytopenia. - The patient had transaminitis post arrest likely secondary to shock liver which has been improving. Renal: The patient initially with a metabolic respiratory acidosis with a lactic acidosis secondary to cardiac arrest. Her acidosis has improved and her renal function has remained stable. - Will continue monitoring her ins and outs. The patient will be given a bolus IV. IV normal saline today. - Will continue my electrolytes and repeat as needed. She does have hypokalemia and so will replete that today. - Continue with fingerstick glucose checks with sliding scale coverage as needed. Heme: The patient with anemia, possibly in the setting of GI bleed as well as from frequent blood draws. She also was noted to have thrombocytopenia likely in setting of sepsis which has been worsening possibly secondary to medications such as the antibiotics and the PPI. - The patient did have coagulation studies checked which were not consistent with DIC. - Will continue to monitor hemoglobin and platelet levels and will transfuse as needed. She does not appear to have active of bleeding at this time. Will get a repeat type and screen. DVT prophylaxis: Lovenox. Will continue for now and hold if platelet counts are less than 50,000. GI prophylaxis: Famotidine CODE STATUS: Had a family meeting with the patient's son Ricardo and her daughter today. After some discussion about her prognosis, particularly with a poor neurologic prognosis, the decision was made for the patient to be DO NOT RESUSCITATE. There was also some discussion about possible palliative extubation and comfort measures only potentially next week. Total critical care time spent not including procedures approximately 60 minutes.
[2020-02-08 13:22] LABS: BASO % 0.2 % (0.0-1.0); EOS # 0.1 10^3/uL (0.0-0.5); EOS % 1.4 % (0.0-3.0); HEMATOCRIT 24.1 % (36.0-47.0); HEMOGLOBIN 8.1 g/dl (12.0-15.5); LYMPH # 0.9 10^3/uL (1.5-5.0); LYMPH % 11.2 % (24.0-44.0); MEAN CORPUSCULAR HEMOGLOBIN 28.3 pg (27.0-33.0); MEAN CORPUSCULAR HGB CONC 33.6 g/dl (32.0-36.5); MEAN CORPUSCULAR VOLUME 84.3 fl (80.0-96.0); MONO # 0.6 10^3/uL (0.0-0.8); MONO % 7.7 % (0.0-5.0); NEUTROPHILS # 6.3 10^3/uL (1.5-8.5); NEUTROPHILS % 75.2 % (36.0-66.0); PLATELET COUNT, AUTOMATED 61 10^3/uL (150-450); RED BLOOD COUNT 2.86 10^6/uL (4.00-5.40); WHITE BLOOD COUNT 8.3 10^3/uL (4.0-10.0)
[2020-02-08 13:44] LABS: BLOOD UREA NITROGEN 9 MG/DL (7-18); CALCIUM LEVEL 7.5 MG/DL (8.5-10.1); CARBON DIOXIDE LEVEL 27 MEQ/L (21-32); CHLORIDE LEVEL 109 MEQ/L (98-107); CREATININE FOR GFR 0.34 MG/DL (0.55-1.30); GLOMERULAR FILTRATION RATE > 60.0 (>51); GLUCOSE, FASTING 87 MG/DL (70-100); PHOSPHORUS LEVEL 1.9 MG/DL (2.5-4.9); POTASSIUM SERUM 4.2 MEQ/L (3.5-5.1); SODIUM LEVEL 139 MEQ/L (136-145)
[2020-02-08] MEDS ORDERED: SODIUM CHLORIDE 0.9% INJ 10 ML SYR IV PRN (14:45)
[2020-02-08] MEDS ORDERED: POTASSIUM PHOSPHATE INJ 15 MMOL in D5W 250 ML IV ONE (16:00)
[2020-02-08] MEDS ORDERED: MIDAZOLAM INJ 2MG/2ML VIAL (J2250 PER 1MG) IV PRN (16:45)
--- NOTE | 2020-02-08 18:02 | ECGEPIP ---
[facility] Test Date: 2020-02-05 Pat Name: SALOMON WINKLER Department: Room: [place] [address] Gender: Female Sterilization Tech: : 1960 Requested By: ANGELO HOFF Order Number: [id number] Reading MD: Reggie Angel Measurements Intervals [place] Rate: 132 P: 62 IA: 130 QRS: 7 QRSD: 87 T: -10 QT: 305 QTc: 453 Interpretive Statements SINUS TACHYCARDIA WITH OCCASIONAL SUPRAVENTRICULAR PREMATURE COMPLEXES MINIMAL ST DEPRESSION ABNORMAL RHYTHM ECG Compared to prior tracings(2) in the system, HEART RATE IS NOW FASTER Electronically Signed on 02-08-2020 18:02:24 EDT by Reggie Angel
--- NOTE | 2020-02-08 18:05 | ECGEPIP ---
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
--- NOTE | 2020-02-08 18:15 | ECGEPIP ---
[facility] Test Date: 2020-02-06 Pat Name: SALOMON WINKLER Department: Room: [place] [address] Gender: Female Executive Talent Acquisition Consultant: ELIZABETH : 1960 Requested By: MARINO WILLS Order Number: [id number] Reading MD: Reggie Angel Measurements Intervals [place] Rate: 106 P: 75 ID: 132 QRS: 13 QRSD: 88 T: -20 QT: 365 QTc: 487 Interpretive Statements SINUS TACHYCARDIA MODERATE ST DEPRESSION Compared to prior tracings(2) in the system, no significant changes Electronically Signed on 02-08-2020 18:15:55 EDT by Reggie Angel
[2020-02-08] MEDS: D5W 1,000 ML IV SCH (19:07)
[2020-02-08] MEDS: SODIUM CHLORIDE 0.9% INJ 10 ML SYR IV SCH (21:14)
[2020-02-08] MEDS: ENOXAPARIN 30MG/0.3ML SYRINGE (J1650 PER 10MG) SC SCH (21:14)
[2020-02-08] MEDS: ACETAMINOPHEN TAB 650MG DOSE (2X325MG) PO PRN (21:16)
[2020-02-09] VITALS (57 sets, daily range): BP systolic 71–195; BP diastolic 39–105; O2SAT 99
[2020-02-09] MEDS: HumaLOG INSULIN (NovoLOG) PER UNIT SC SCH ×6 (00:20→21:35)
[2020-02-09 04:50] LABS: HEMATOCRIT 23.8 % (36.0-47.0); HEMOGLOBIN 7.8 g/dl (12.0-15.5); MEAN CORPUSCULAR HEMOGLOBIN 27.8 pg (27.0-33.0); MEAN CORPUSCULAR HGB CONC 32.8 g/dl (32.0-36.5); MEAN CORPUSCULAR VOLUME 84.7 fl (80.0-96.0); RED BLOOD COUNT 2.81 10^6/uL (4.00-5.40)
[2020-02-09 04:51] LABS: PLATELET COUNT, AUTOMATED 69 10^3/uL (150-450)
[2020-02-09] MEDS: SODIUM CHLORIDE 0.9% INJ 10 ML SYR IV SCH ×3 (05:02→22:00)
[2020-02-09] MEDS: SLF 3 ML SYR IV SCH ×3 (05:02→22:00)
[2020-02-09 05:16] LABS: ALBUMIN 1.7 GM/DL (3.2-5.2); ALT/SGPT 47 U/L (12-78); BILIRUBIN,TOTAL 0.4 MG/DL (0.2-1.0); BLOOD UREA NITROGEN 7 MG/DL (7-18); CALCIUM LEVEL 7.2 MG/DL (8.5-10.1); CARBON DIOXIDE LEVEL 24 MEQ/L (21-32); CHLORIDE LEVEL 106 MEQ/L (98-107); CREATININE FOR GFR 0.37 MG/DL (0.55-1.30); GLOMERULAR FILTRATION RATE > 60.0 (>51); GLUCOSE, FASTING 97 MG/DL (70-100); MAGNESIUM LEVEL 1.9 MG/DL (1.8-2.4); POTASSIUM SERUM 3.8 MEQ/L (3.5-5.1); SODIUM LEVEL 136 MEQ/L (136-145); TOTAL PROTEIN 4.8 GM/DL (6.4-8.2)
[2020-02-09 05:30] LABS: LYMPHOCYTES 15 % (16-44); METAMYELOCYTES 1 % (0-0); MONOCYTES 8 % (0-5); NEUTROPHILS 75 % (28-66)
[2020-02-09 05:31] LABS: ANISOCYTOSIS 1+; OVALOCYTES 2+; PLATELET ESTIMATE DECREASED (NORMAL); POIKILOCYTOSIS 2+
[2020-02-09 05:32] LABS: TEAR DROP CELLS 1+
[2020-02-09 05:54] LABS: ABG BASE EXCESS -1.2 (-2.0-2.0); ABG HCO3 20.9 MEQ/L (22.0-26.0); ABG O2 SATURATION 99.5 % (95.0-99.0); ABG PARTIAL PRESSURE CO2 25.6 mmHg (35.0-45.0); ABG PARTIAL PRESSURE O2 160.8 mmHg (75.0-100.0); ABG STANDARD HCO3 23.5 MEQ/L (22.0-26.0); ABG TOTAL CO2 21.6 MEQ/L (22.0-29.0); ABG pH (ARTERIAL) 7.529 UNITS (7.350-7.450)
[2020-02-09] MEDS: lamoTRIgine 100MG TAB PO SCH (09:04)
[2020-02-09] MEDS: CHLORHEXIDINE GLUCONATE 0.12 % 15ML UDC (PERIDEX ORAL RINSE) MT SCH ×2 (09:04→21:29)
[2020-02-09] MEDS: POTASSIUM CHLORIDE 10% LIQ 20 MEQ/15 ML UDC PO SCH (09:05)
[2020-02-09] MEDS: D5W 1,000 ML IV SCH (09:06)
[2020-02-09] MEDS: FAMOTIDINE IV BAG 20 MG in IV 1 EA IV SCH ×2 (09:06→21:29)
--- NOTE | 2020-02-09 10:20 | REP ---
PORTABLE CHEST X-RAY: SINGLE VIEW. HISTORY: Intubated patient. COMPARISON STUDY: February 08, 2020 FINDINGS: Oxygen delivery tubing and monitoring electrodes overlie the chest. A nasogastric tube enters the left upper quadrant. Right internal jugular central venous line terminates in the expected location of the superior vena cava. Endotracheal tube is noted in good position at the level of the transverse aorta. There is platelike atelectasis in the right mid lung zone. Increased density is seen behind the heart in the left base partially obscuring the left hemidiaphragm, consistent with atelectasis and effusion. IMPRESSION: Effusion and/or atelectasis persist in the left base. Platelike atelectasis right perihilar region. Electronically Signed by Rey Mims MD 02/09/2020 11:01 A
[2020-02-09] MEDS: METOCLOPRAMIDE INJ 10MG/2ML VIAL (J2765 PER 1) IV SCH ×2 (12:48→17:43)
[2020-02-09] MEDS: cefTRIAXone SOD 1 GM in D5W MINI-BAG PLUS 50 ML IV SCH (12:49)
[2020-02-09] MEDS ORDERED: hydrALAZINE 20MG/ML 1ML VIAL (J0360 PER 20MG) IV ONE (19:15)
[2020-02-09] MEDS ORDERED: NOREPINEPHRINE 4 MG/4 ML AMP As Ordered ONE (19:56)
[2020-02-09] MEDS: NOREPINEPHRINE BITARTRATE 16 MG in D5W 484 ML IV SCH (20:40)
[2020-02-09] MEDS: ENOXAPARIN 30MG/0.3ML SYRINGE (J1650 PER 10MG) SC SCH (21:29)
[2020-02-10] VITALS (174 sets, daily range): BP systolic 60–187; BP diastolic 39–97; O2SAT 98
[2020-02-10] MEDS: METOCLOPRAMIDE INJ 10MG/2ML VIAL (J2765 PER 1) IV SCH ×5 (00:11→23:59)
[2020-02-10] MEDS: cefTRIAXone SOD 1 GM in D5W MINI-BAG PLUS 50 ML IV SCH ×2 (00:11→12:13)
[2020-02-10] MEDS: HumaLOG INSULIN (NovoLOG) PER UNIT SC SCH ×6 (00:38→21:13)
[2020-02-10] MEDS: D5W 1,000 ML IV SCH ×2 (05:07→20:49)
[2020-02-10] MEDS: SLF 3 ML SYR IV SCH ×3 (05:07→21:13)
[2020-02-10] MEDS: SODIUM CHLORIDE 0.9% INJ 10 ML SYR IV SCH ×3 (05:07→21:13)
[2020-02-10 05:09] LABS: HEMATOCRIT 26.4 % (36.0-47.0); HEMOGLOBIN 8.8 g/dl (12.0-15.5); MEAN CORPUSCULAR HEMOGLOBIN 27.3 pg (27.0-33.0); MEAN CORPUSCULAR HGB CONC 33.3 g/dl (32.0-36.5); PLATELET COUNT, AUTOMATED 156 10^3/uL (150-450); RED BLOOD COUNT 3.22 10^6/uL (4.00-5.40); WHITE BLOOD COUNT 8.8 10^3/uL (4.0-10.0)
[2020-02-10 05:21] LABS: INR 1.07; PROTHROMBIN TIME 13.6 SECONDS (11.8-14.0)
[2020-02-10 05:22] LABS: PARTIAL THROMBOPLASTIN TIME 34.3 SECONDS (25.0-38.4)
[2020-02-10 05:35] LABS: ALBUMIN 1.9 GM/DL (3.2-5.2); ALT/SGPT 48 U/L (12-78); BILIRUBIN,TOTAL 0.5 MG/DL (0.2-1.0); BLOOD UREA NITROGEN 3 MG/DL (7-18); CALCIUM LEVEL 7.9 MG/DL (8.5-10.1); CARBON DIOXIDE LEVEL 25 MEQ/L (21-32); CHLORIDE LEVEL 115 MEQ/L (98-107); CREATININE FOR GFR 0.36 MG/DL (0.55-1.30); GLOMERULAR FILTRATION RATE > 60.0 (>51); GLUCOSE, FASTING 159 MG/DL (70-100); POTASSIUM SERUM 3.5 MEQ/L (3.5-5.1); SODIUM LEVEL 147 MEQ/L (136-145); TOTAL PROTEIN 4.8 GM/DL (6.4-8.2)
[2020-02-10 05:45] LABS: LYMPHOCYTES 18 % (16-44); METAMYELOCYTES 4 % (0-0); MONOCYTES 4 % (0-5); MYELOCYTES 2 % (0-0); NEUTROPHILS 69 % (28-66); PLATELET ESTIMATE NORMAL (NORMAL); POLYCHROMASIA 1+
[2020-02-10 05:46] LABS: OVALOCYTES 1+
[2020-02-10 05:52] LABS: ABG BASE EXCESS 1.9 (-2.0-2.0); ABG HCO3 23.7 MEQ/L (22.0-26.0); ABG O2 SATURATION 97.9 % (95.0-99.0); ABG PARTIAL PRESSURE O2 104.5 mmHg (75.0-100.0); ABG STANDARD HCO3 26.2 MEQ/L (22.0-26.0); ABG TOTAL CO2 24.5 MEQ/L (22.0-29.0); ABG pH (ARTERIAL) 7.561 UNITS (7.350-7.450)
--- NOTE | 2020-02-10 07:04 | REP ---
Clinical: Respiratory distress. Intubation. Comparison: 02/09/2020. Findings: Endotracheal tube approximately 2 cm above the nicole. Nasogastric tube in satisfactory position. Right IJ line with tip in the SVC. Mediastinum and cardiac silhouette are relatively normal. Linear scarring versus plate-like atelectasis in the right mid lung zone appears less prominent than prior examination. Left lower lobe consolidation and small pleural reaction again noted. No new acute process. No pneumothorax. Skeletal structures intact. Impression: 1. Left lower lobe consolidation/atelectasis and small pleural reaction essentially unchanged. 2. Linear plate-like atelectasis in the right mid lung zone appears mildly improved. Electronically Signed by Stephen Harrington MD 02/10/2020 06:56 A
--- NOTE | 2020-02-10 08:28 | CCN ---
DATE: 02/09/2020 CRITICAL CARE NOTE The patient is seen in the intensive care unit, victim of anoxic brain injury. She is day #4 status post pulseless electrical activity arrest with return of spontaneous circulation at 15 minutes. At bedside she is intubated, mechanically ventilated, critically ill and obtunded. Temperature is 97, pulse rate 67, respirations 22, blood pressure 140/84 on no pressors. Intake and output for the 24 hours: 2460 in, 472 out; since midnight 480 in, 260 out. At bedside, she is ill appearing. Her pupils are 5 mm and fixed. The extraocular motion is not intact. There is an endotracheal tube and orogastric tube in good position. Neck is supple. No meningismus. Heart sounds are regular, somewhat distant. Breath sounds mildly coarse, mildly diminished in the bases. No focal sounds are appreciated. The chest is symmetric and moves symmetrically with ventilated efforts. There are no spontaneous breathing efforts noted. Abdomen is soft. There are hypoactive bowel sounds. No palpable mass. Extremities: Show some edema. The skin is cool. Pulses are palpable times four. Diagnostic studies review: Her sodium is 136, potassium 3.8, chloride 106, CO2 of 24, BUN is 7, creatinine 0.37. Her glucose is 97, range 61-97. Calcium is 7.2, magnesium is 1.9, bilirubin 0.4, AST is 125, ALT 47, alkaline phosphatase 102, protein 4.8, albumin 1.7. Arterial blood gases show a pH of 7.52, pCO2 of 25.6, pO2 of 160; this on a pressure-regulated volume control mode, targeting a tidal volume of 380 with 18 breaths per minute, 30% oxygen. Peak pressures are running approximately 16. Chest imaging was reviewed. There is no report yet, but the image does show some atelectasis and elevation of the right hemidiaphragm. Microbiology review: Sputum cultures were negative on 02/05/2020. Blood cultures were negative times four. A urine culture on showed Hafnia pansensitive. Medications review: This is day #2 of ceftriaxone. She is receiving Lovenox 30 mg nightly, famotidine once a day, D5 at 60 mL per hour, Versed is being given on an as-needed basis, Lamictal, and blood sugars are monitored via fingerstick with glucose as needed. The primary problem requiring critical attention is acute respiratory failure - we will change the mode to IMV with pressure support in an effort to prompt spontaneous efforts, monitoring saturation and end-tidal CO2 continuously. Anoxic brain injury. The patient has shown no response in several days. Her prognosis is poor. Infectious disease: This is day #2 of ceftriaxone for urinary tract infection and possible pneumonia, though her chest x-ray is clear, white cell count is down, there has been no fever. Anemia. There is no obvious source of bleeding. Will to continue to monitor hemoglobins, and I will check coagulation profile. Nutritional support has been a challenge. The patient is intolerant of tube feedings. We will begin Reglan in an effort to stimulate activity of the gut. Deep vein thrombosis (DVT) prophylaxis is being addressed with sequential hose and Lovenox. There is no evidence on physical exam of DVT. Ulcer prophylaxis is being addressed with famotidine. Glycemic control is being monitored and is within reasonable range. The patient's condition is critical. Prognosis is poor. 1 hour and 42 minutes was spent in the provision of bedside critical care and coordination exclusive of procedure time. [facility]
[2020-02-10] MEDS: lamoTRIgine 100MG TAB GT SCH (10:02)
[2020-02-10] MEDS: CHLORHEXIDINE GLUCONATE 0.12 % 15ML UDC (PERIDEX ORAL RINSE) MT SCH ×2 (10:02→20:49)
[2020-02-10] MEDS: POTASSIUM CHLORIDE 10% LIQ 20 MEQ/15 ML UDC PO SCH (10:04)
[2020-02-10] MEDS: dexameTHASONE 20MG/5ML VIAL (J1100 PER 1MG) IV SCH ×2 (10:04→21:13)
[2020-02-10] MEDS: FAMOTIDINE IV BAG 20 MG in IV 1 EA IV SCH ×2 (10:08→20:51)
[2020-02-10] MEDS: NOREPINEPHRINE BITARTRATE 16 MG in D5W 484 ML IV SCH (10:19)
[2020-02-10] MEDS ORDERED: DESMOPRESSIN ACETATE IV ONE (11:00)
[2020-02-10] MEDS ORDERED: NS IV ONE (11:00)
[2020-02-10 12:24] LABS: APPEARANCE, URINE HAZY (CLEAR); BACTERIA, URINE AUTO 1+ (NEGATIVE); BILIRUBIN, URINE AUTO NEGATIVE (NEGATIVE); BLOOD, URINE BLOOD 1+ (NEGATIVE); COLOR, URINE YELLOW (YELLOW); GLUCOSE, URINE (UA) AUTO NEGATIVE (NEGATIVE); KETONE, URINE AUTO NEGATIVE (NEGATIVE); LEUKOCYTE ESTERASE, URINE AUTO 2+ (NEGATIVE); MUCUS, URINE SMALL (NEGATIVE); NITRITE, URINE AUTO NEGATIVE (NEGATIVE); PROTEIN, URINE AUTO NEGATIVE (NEGATIVE); RBC, URINE AUTO 3 /HPF (0-3); RENAL EPITHELIAL CELLS 1 /HPF; SPECIFIC GRAVITY URINE AUTO 1.009 (1.002-1.035); SQUAMOUS EPITHELIAL CELL UR AU 0 /HPF (0-6); TRANSITIONAL EPITHELIAL AUTO 1 /HPF; UROBILINOGEN, URINE AUTO 0.2 mg/dL (0.0-2.0); WBC, URINE AUTO 8 /HPF (0-3)
[2020-02-10 12:28] LABS: OSMOLALITY URINE 147 MOSM/KG (500-800)
--- NOTE | 2020-02-10 13:31 | CCN ---
DATE: 02/10/2020 The patient is seen in the intensive care unit. This is hospital day #7, intensive care unit (ICU) day #5. She is intubated, mechanically ventilated, and comatose. Over the past 12 hours, blood pressure has fallen, as has temperature. Urine output has increased significantly. Her temperature is 96.1, pulse rate 93, respirations 20, blood pressure were 85/56 on Levophed. Intake and output for the past 24 hours: 1772 in ,3455 out, since midnight 426 in, 3110 out. At bedside she is ill appearing. Her pupils are now fixed and dilated. There is an endotracheal tube and orogastric tube in good position. No drainage. Neck is supple. No meningismus. Heart sounds are regular without appreciable murmur. Breath sounds are diminished and coarse. Abdomen is soft. There are scant bowel sounds. Extremities show peripheral edema and ecchymoses. Pulses are palpable. The right internal jugular intravenous (IV) catheter site is clean. DIAGNOSTIC STUDIES: Her sodium is 147, potassium 3.5, chloride 115, CO2 of 25, BUN 3, creatinine 0.36, glucose 159. White cell count is 8.8, hemoglobin 88, hematocrit 26, platelet count is up to 156,000. AST 135, ALT 48, albumin 1.9, calcium 7.9. PT 13, PTT 34. Bilirubin 0.5. Magnesium is 2. Arterial blood gases show a pH 7.56, pCO2 of 27, pO2 of 104, this on intermittent mandatory ventilation (IMV) mode of ventilation. Tidal volume 380, rate of 14, positive end-expiratory pressure (PEEP) of 4, pressure support ventilation (PSV) of 12. Imaging shows little change from yesterday. On medications review, she is receiving Rocephin, day #2, Lovenox subcutaneously, famotidine, Versed as needed rarely, Lamictal 400 mg a day, Reglan 5 mg every 6, and Levophed drip. On infectious disease review, sputum cultures and blood cultures are negative. Urine on February 04 showed Hafnia. The primary problem requiring critical attention is acute respiratory failure. Arterial blood gases are acceptable, and the current mode of ventilation will continue and monitor gas exchange with saturation and end-tidal CO2 continuously. Anoxic brain injury. There are signs of herniation. Will check a urinalysis (UA) and osmolarity and initiate warming externally, steroids for cerebral edema, DDAVP, and pressors. From an infectious disease standpoint, urine is showing Hafnia. Other cultures are negative. Broad-spectrum antibiotics are in place. Anemia. Hemoglobin is improved. Nutritional support. The patient has been intolerant of tube feedings. Reglan has been started. We will retry tube feedings again today. Deep vein thrombosis (DVT) prophylaxis is being addressed with Lovenox. The coagulation profile is acceptable. Ulcer prophylaxis is being addressed with famotidine. Glycemic control is acceptable at this point. Likely blood sugars will increase with the start of steroids. Will continue close monitoring and administration of insulin as needed. The family has been updated on the patient's status and poor prognosis. One hour and 24 minutes was spent in the provision of bedside critical care and coordination exclusive of procedure time. [facility]
[2020-02-10 14:57] LABS: ALBUMIN 1.9 GM/DL (3.2-5.2); BLOOD UREA NITROGEN 3 MG/DL (7-18); CALCIUM LEVEL 7.2 MG/DL (8.5-10.1); CARBON DIOXIDE LEVEL 21 MEQ/L (21-32); CHLORIDE LEVEL 121 MEQ/L (98-107); CREATININE FOR GFR 0.54 MG/DL (0.55-1.30); GLOMERULAR FILTRATION RATE > 60.0 (>51); GLUCOSE, FASTING 195 MG/DL (70-100); PHOSPHORUS LEVEL 2.5 MG/DL (2.5-4.9); POTASSIUM SERUM 3.4 MEQ/L (3.5-5.1); SODIUM LEVEL 152 MEQ/L (136-145)
[2020-02-10 20:07] LABS: VITAMIN B1 LEVEL WHOLE BLOOD 79.3 nmol/L (66.5-200.0)
[2020-02-10] MEDS: ENOXAPARIN 30MG/0.3ML SYRINGE (J1650 PER 10MG) SC SCH (20:49)
[2020-02-10] MEDS ORDERED: KCL 20MEQ IN 100ML SWI (KRUN) 20 MEQ in IV 1 EA IV ONE ×2 (21:45)
[2020-02-11] VITALS (39 sets, daily range): BP systolic 67–169; BP diastolic 44–87; O2SAT 98
[2020-02-11] MEDS: HumaLOG INSULIN (NovoLOG) PER UNIT SC SCH ×4 (01:36→12:38)
[2020-02-11 04:25] LABS: HEMATOCRIT 24.3 % (36.0-47.0); HEMOGLOBIN 8.1 g/dl (12.0-15.5); MEAN CORPUSCULAR HEMOGLOBIN 28.7 pg (27.0-33.0); MEAN CORPUSCULAR HGB CONC 33.3 g/dl (32.0-36.5); MEAN CORPUSCULAR VOLUME 86.2 fl (80.0-96.0); PLATELET COUNT, AUTOMATED 164 10^3/uL (150-450); RED BLOOD COUNT 2.82 10^6/uL (4.00-5.40); WHITE BLOOD COUNT 8.1 10^3/uL (4.0-10.0)
[2020-02-11 05:02] LABS: ALBUMIN 1.8 GM/DL (3.2-5.2); ALT/SGPT 46 U/L (12-78); BILIRUBIN,TOTAL 0.3 MG/DL (0.2-1.0); BLOOD UREA NITROGEN 4 MG/DL (7-18); CARBON DIOXIDE LEVEL 24 MEQ/L (21-32); CHLORIDE LEVEL 114 MEQ/L (98-107); CREATININE FOR GFR 0.46 MG/DL (0.55-1.30); GLOMERULAR FILTRATION RATE > 60.0 (>51); GLUCOSE, FASTING 128 MG/DL (70-100); POTASSIUM SERUM 3.8 MEQ/L (3.5-5.1); SODIUM LEVEL 144 MEQ/L (136-145); TOTAL PROTEIN 5.2 GM/DL (6.4-8.2)
[2020-02-11 05:04] LABS: LYMPHOCYTES 14 % (16-44); METAMYELOCYTES 1 % (0-0); MONOCYTES 4 % (0-5); MYELOCYTES 1 % (0-0); NEUTROPHILS 76 % (28-66); PLATELET ESTIMATE NORMAL (NORMAL)
[2020-02-11 05:05] LABS: ANISOCYTOSIS 1+
[2020-02-11 05:06] LABS: OVALOCYTES 2+; POLYCHROMASIA 1+
[2020-02-11] MEDS: SODIUM CHLORIDE 0.9% INJ 10 ML SYR IV SCH ×2 (05:44→14:00)
[2020-02-11] MEDS: METOCLOPRAMIDE INJ 10MG/2ML VIAL (J2765 PER 1) IV SCH ×2 (05:44→12:00)
[2020-02-11] MEDS: SLF 3 ML SYR IV SCH ×2 (05:44→14:00)
[2020-02-11 06:13] LABS: ABG BASE EXCESS 0.7 (-2.0-2.0); ABG HCO3 23.3 MEQ/L (22.0-26.0); ABG O2 SATURATION 98.7 % (95.0-99.0); ABG PARTIAL PRESSURE CO2 29.2 mmHg (35.0-45.0); ABG PARTIAL PRESSURE O2 117.7 mmHg (75.0-100.0); ABG STANDARD HCO3 25.1 MEQ/L (22.0-26.0); ABG TOTAL CO2 24.2 MEQ/L (22.0-29.0)
--- NOTE | 2020-02-11 07:26 | REP ---
Clinical: Status post intubation. Comparison: 02/10/2020. Findings: Endotracheal tube 2.2 cm above the nicole. Nasogastric tube below low left hemidiaphragm in satisfactory position. Right IJ line with tip in the SVC. The mediastinum and cardiac silhouette are relatively normal. Left lower lobe consolidation and small left pleural effusion are again noted. Skeletal structures are intact. Impression: 1. Lines and tubes as above. 2. Left lower lobe/retrocardiac consolidation and small left pleural effusion again noted and essentially unchanged. Electronically Signed by Stephen Harrington MD 02/11/2020 07:18 A
[2020-02-11] MEDS: NOREPINEPHRINE BITARTRATE 16 MG in D5W 484 ML IV SCH ×4 (08:41→09:11)
[2020-02-11] MEDS: CHLORHEXIDINE GLUCONATE 0.12 % 15ML UDC (PERIDEX ORAL RINSE) MT SCH (09:47)
[2020-02-11] MEDS: POTASSIUM CHLORIDE 10% LIQ 20 MEQ/15 ML UDC PO SCH (09:47)
[2020-02-11] MEDS: lamoTRIgine 100MG TAB GT SCH (09:48)
[2020-02-11] MEDS: dexameTHASONE 20MG/5ML VIAL (J1100 PER 1MG) IV SCH (09:48)
[2020-02-11] MEDS: FAMOTIDINE IV BAG 20 MG in IV 1 EA IV SCH (09:48)
[2020-02-11] MEDS: D5W 1,000 ML IV SCH (11:25)
--- NOTE | 2020-02-11 11:34 | CCN ---
DATE: 02/11/2020 The patient is seen in the intensive care unit intubated, mechanically ventilated, comatose with occasional spontaneous breaths. This is hospital day #8, intensive care unit (ICU) day #6, endotracheal tube day #6. At bedside her temperature is 95, maximum temperature (T-max) for the past 24 hours 97, pulse rate 89, respirations 14/14 delivered, blood pressure 165/87, off of Levophed. Input and output for the past 24 hours 1587 in, 5470 out. Since midnight 523 in and 150 out. She is ill appearing. Her pupils are 8 mm and nonreactive. The neck is supple without meningismus. Endotracheal tube and orogastric tube are in place. There is no drainage. Heart sounds are regular, distant. Breath sounds diminished and coarse, no focal sounds. Chest is symmetric and moves symmetrically with mechanically ventilated efforts. The abdomen is soft with scant bowel sounds. Pulses are diminished in the periphery but palpable. Skin is cool, dry. DIAGNOSTIC STUDIES: White cell count is 8.1, hemoglobin 8.1, hematocrit 24.3, platelet count is 164,000. The differential white cell count shows 76% neutrophils 4 bands, 14 lymphocytes, 1 metamyelocyte and 1 myelocyte are noted. The electrolytes are sodium 144, potassium 3.8, chloride 114, CO2 24, BUN is 4, creatinine 0.46, glucose 128, calcium is 8.0, magnesium is 2, bilirubin 0.3. The AST is 85, ALT 46, alk phos 127, protein is 5.2, albumin is 1.8. Arterial blood gases were performed. The pH of 7.52, pCO2 29, pO2 117. This on IMV mode of ventilation rate of 14, tidal volume 380, PEEP of 5, PSV of 12, FiO2 0.3. Chest imaging was reviewed. The report is pending but I see no new infiltrates in the lungs. Tubes and lines are in good position. On medication review this is day #3 of ceftriaxone. She is receiving Decadron 6 mg every 12 hour, Lamictal 400 mg via G tube daily, norepinephrine is written and is on standby. She is receiving Reglan 5 mg every 6 hours, Versed is written. The last dose was 625 and famotidine 20 mg daily, potassium chloride 40 mEq daily. The primary problem requiring critical attention is acute respiratory failure. Arterial blood gases are acceptable. She continues to display occasional spontaneous breaths. Will maintain the current mechanical ventilatory mode. Anoxic encephalopathy: She is displaying brain brainstem reflexes only. From an infectious disease standpoint, this is day #3 of second generation cephalosporin. Sputum and blood cultures are negative. We are addressing Hafnia in the urine. White cell count is normal at this point and urine appears clear. Her temperature is quite variable, likely related to her brain injury. Anemia: Hemoglobin is acceptable and stable. Will continue monitoring. Nutrition: Tube feeds were not tolerated despite Reglan. I will increase the dose to 10 mg and retry the tube feedings. Deep venous thrombosis (DVT) prophylaxis is being addressed with subcutaneous heparin. Ulcer prophylaxis is being addressed with famotidine. Glycemic control is acceptable. Continue with fingerstick blood sugars and coverage. 1 hour and 28 minutes was spent in provision of bedside critical care coordination in excess of any procedure time. I did speak with the patient's family yesterday and related the poor prognosis in light of her anoxic brain injury.
[2020-02-11] MEDS: cefTRIAXone SOD 1 GM in D5W MINI-BAG PLUS 50 ML IV SCH ×3 (12:00)
[2020-02-11] MEDS ORDERED: ATROPINE SULFATE 1% OP SOLN 2 ML BTL SL PRN (14:45)
[2020-02-11] MEDS ORDERED: SCOPOLAMINE 1MG TRANSDERMAL PATCH TOP PRN (14:45)
[2020-02-11] MEDS ORDERED: MORPHINE 2 MG/ML 1ML VIAL (J2270) IV PRN ×2 (14:45)
[2020-02-11] MEDS ORDERED: LORazepam 2 MG/ML VIAL IV PRN (14:45)
[2020-02-11] MEDS ORDERED: ONDANSETRON 4MG/2ML VIAL IV PRN (14:45)
--- NOTE | 2020-02-11 21:41 | DSES ---
DATE OF ADMISSION: 02/03/2020 DATE OF : 02/11/2020 Patient on 02/11/2020 as comfort measures only, DO NOT RESUSCITATE/DO NOT INTUBATE. CONSULTANTS: 1. Instrument Installer, Dr. Juan Hou. 2. advanced clinical specialist, Dr. Lian Khoury. 3. Neurologist, Dr. Jaziel Garcia. PROCEDURES DURING THIS ADMISSION: 1. Electroencephalogram 02/06/2020. 2. Central line placement for Levophed intravenous drip for septic shock 02/06/2020. 3. Intubation with mechanical ventilation 02/05/2020. 4. Cardiopulmonary resuscitation with return of spontaneous circulation 02/05/2020. PRIMARY DISCHARGE DIAGNOSES: 1. Cardiac arrest. 2. Embolic encephalopathy. 3. Septic shock requiring IV Levophed drip. 4. Urinary tract infection. 5. Left lower lobe pneumonia. 6. Anoxic brain injury. 7. Shock liver. 8. Metabolic and respiratory acidosis. 9. Thrombocytopenia. 10. Dehydration with hypernatremia. 11. Acute respiratory arrest. 12. Pulseless electrical activity. 13. Aspiration pneumonia. 14. Urinary tract infection with hafnia alvei. 15. History of seizure disorder with surgical craniotomy. 16. Dyslipidemia. 17. History of bipolar disorder. 18. History of migraines. Patient was extubated today with family at the bedside. Per family request, patient was made comfort measures only and immediately after intubation. HISTORY OF PRESENT ILLNESS: This is a 59-year-old female with history of bipolar disorder, migraines, dyslipidemia, was brought in to the emergency room with altered mental status after being found on the floor. Patient had run out of medications and had missed several appointments with her psychiatrist. On arrival, CT of the head was unremarkable. Ammonia level was normal. Toxicology showed alcohol of less than 0.003. 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 Patient was found to have abnormal urinalysis and was given intravenous ceftriaxone. She was found to be dehydrated and was started on D5 half normal saline. She was kept on neuro checks and started back on her home medications of Lamictal and Seroquel. Neurologist was consulted and electroencephalogram was ordered, which showed metabolic encephalopathy. Patient was sent back to obtain a CT of the head on 02/05/2020 and was unresponsive when she returned, and found to be in pulseless electrical activity and cardiac arrest. Return of spontaneous circulation was obtained after 15 minutes. Further evaluation showed a new left upper lobe pneumonia thought to be secondary to aspiration. She was emergently intubated and transferred to intensive care unit (ICU) for mechanical ventilation. Post arrest, patient was hypertensive and was started on Levophed for blood pressure support and was minimally responsive post arrest with Shelbi Coma Scale of 8. Patient was seen by Dr. Khoury, ICU attending. She was kept on IV Levophed drip to increase mean arterial pressure to over 70. Patient had horizontal nystagmus and had been noncompliant with her medications. She had acute cystitis, which lowered her seizure threshold with elevated prolactin level. She was continued on her Lamictal via nasogastric tube. To keep her normothermic, she was placed on a cooling blanket, kept on Versed for agitation, as she was now ventilated. Right internal triple lumen catheter was placed on 02/05/2020 for vasopressor therapy. Echocardiogram was unremarkable. It did not show any wall motion abnormalities. Ejection fraction was 75% with hyperdynamic left and right ventricular function, no regional wall abnormalities and normal left ventricular diastolic function. Normal-appearing echocardiogram. Patient developed a shock liver with transaminitis along with thrombocytopenia, thought to be secondary to sepsis, which improved until 02/10/2020. She remained with very little neurological function. Repeat electroencephalogram (EEG) showed no epileptiform activity. Broad-spectrum coverage with Zosyn was started and ceftriaxone was discontinued. She subsequently developed hypernatremia and fluids were changed and she was placed on total parenteral nutrition (TPN). Patient was kept on full support. Patient was transferred to Dr. Khoury's service on 02/06/2020 and remained under intensive care attending physician, Dr. Hou. Family was informed of the poor overall prognosis in light of poor support and minimal neurologic recovery. She remained with significant anoxic encephalopathy with repeat CT on 02/06/2020, showing gomez-white differentiation, pattern being less conspicuous, with some degree of encephalopathy suspected. No hemorrhage. Old encephalomalacia was seen in the left frontal lobe. Repeat x-rays on 02/08/2020 and 02/10/2020 showed lines and tubes with persistent left lower lobe and retrocardiac consolidation. Left pleural effusion noted, which was essentially unchanged. Patient was keep on broad-spectrum antibiotics and remained afebrile with normalization of the white count. She was found to be slowly anemic, from admission of 16.5 due to dehydration, to 8.1. Family had decided to discontinue full supportive system, full medical support, since the patient had a significant anoxic encephalopathy with very poor overall prognosis. Patient's family arrived on 02/11/2020, decided to removed her from ventilatory support. Patient subsequently after removal from the ventilator and extubation at 3:15 p.m. on 02/11/2020 with the patient's family at the bedside. PHYSICAL EXAMINATION ON DISCHARGE: VITAL SIGNS: No temperature, no pulse, no respiratory rate, no spontaneous breathing, no blood pressure. GENERAL: No spontaneous movements. LUNGS: No breath sounds. HEART: No heart sounds. ABDOMEN: No abdominal sounds. Time spent on hospital discharge: 30 minutes. [place] [facility] [place]
== END 2020-02-11 16:10 | disposition expired | DRG 640 ==
LOC: M ED 10:38 → M ED INP 13:23 → ENRESERVTM 14:10 → ENRESERV 14:45 → M MSPAV 15:41 → M PCU 02-05 11:56 → M ICU 02-05 16:42
PROVIDERS: ADMIT Internal Medicine; ATTEND General Practice
PROC: 02HV33Z Insertion of Infusion Device into Superior Vena Cava, Percutaneous Approach (ICD-10-PCS; principal; 2020-02-05)
PROC: 0BH17EZ Insertion of Endotracheal Airway into Trachea, Via Natural or Artificial Opening (ICD-10-PCS; 2020-02-05)
PROC: 5A1955Z Respiratory Ventilation, Greater than 96 Consecutive Hours (ICD-10-PCS; 2020-02-05)
DX: E86.0 Dehydration (principal); G93.41 Metabolic encephalopathy; J96.00 Acute respiratory failure, unspecified whether with hypoxia or hypercapnia; G93.5 Compression of brain; J69.0 Pneumonitis due to inhalation of food and vomit; N39.0 Urinary tract infection, site not specified; G93.1 Anoxic brain damage, not elsewhere classified; R41.82 Altered mental status, unspecified; E87.4 Mixed disorder of acid-base balance; F31.9 Bipolar disorder, unspecified; G43.009 Migraine without aura, not intractable, without status migrainosus; E78.5 Hyperlipidemia, unspecified; E66.9 Obesity, unspecified; F41.1 Generalized anxiety disorder; Z51.5 Encounter for palliative care; M47.816 Spondylosis without myelopathy or radiculopathy, lumbar region; M85.80 Other specified disorders of bone density and structure, unspecified site; E55.9 Vitamin D deficiency, unspecified; Z87.440 Personal history of urinary (tract) infections; Z87.442 Personal history of urinary calculi; R73.01 Impaired fasting glucose; Z90.49 Acquired absence of other specified parts of digestive tract; E87.5 Hyperkalemia; E83.51 Hypocalcemia; I46.9 Cardiac arrest, cause unspecified; G40.909 Epilepsy, unspecified, not intractable, without status epilepticus; D69.6 Thrombocytopenia, unspecified; Z66 Do not resuscitate; E87.0 Hyperosmolality and hypernatremia; Z86.69 Personal history of other diseases of the nervous system and sense organs; B96.89 Other specified bacterial agents as the cause of diseases classified elsewhere; Z79.899 Other long term (current) drug therapy